=== PATIENT | male | born 1940 | race Caucasian/White ===

== ENCOUNTER 2017-06-06 18:52 | Inpatient (IN) | payer OTHER ==
[2017-06-06 19:18] LABS: ADD MAN DIFF? NO
[2017-06-06 19:20] LABS: BASO % 0 % (0-3); EOS % 0 % (0-3); HEMOGLOBIN 13.9 g/dL (13.0-17.5); LYMPH # 1.1 x10^3/uL (1.0-4.8); LYMPH % 16 % (24-48); MEAN CORPUSCULAR HEMOGLOBIN 37 pg (25-35); MEAN CORPUSCULAR HGB CONC 34 g/dL (31-37); MEAN CORPUSCULAR VOLUME 109 fL (79-100); MONO % 9 % (0-9); NEUT % 75 % (31-73); PLATELET COUNT 175 x10^3/uL (140-400); RED BLOOD COUNT 3.74 x10^6/uL (4.30-5.70)
[2017-06-06 19:29] LABS: INR 1.1 (0.8-1.1); PARTIAL THROMBOPLASTIN TIME 27 SEC (24-38); PROTHROMBIN TIME PATIENT 13.4 SEC (11.7-14.0)
[2017-06-06 19:30] LABS: BLOOD UREA NITROGEN 25 mg/dL (8-26); BUN/CREATININE RATIO 13 (6-20); CALCIUM 9.5 mg/dL (8.5-10.1); CARBON DIOXIDE 27 mmol/L (21-32); CREATININE 1.9 mg/dL (0.7-1.3); GFR 34.7; GLUCOSE 193 mg/dL (70-99)
[2017-06-06] MEDS: IV NORMAL SALINE 1000ML BAG 1,000 ML IV (19:33)
[2017-06-06] MEDS: DIPHTH,PERTUSS(ACELL),TET TOX 0.5 ML DISP.SYRIN. VAX IM (19:36)
[2017-06-06 19:37] LABS: ALBUMIN 3.8 g/dL (3.4-5.0); ALK PHOS 29 U/L (46-116); ALT (SGPT) 56 U/L (16-63); AST (SGOT) 120 U/L (15-37); CREATINE KINASE 81 U/L (39-308); MAGNESIUM 1.6 mg/dL (1.8-2.4); TOTAL BILIRUBIN 0.9 mg/dL (0.2-1.0); TOTAL PROTEIN 7.5 g/dL (6.4-8.2)
[2017-06-06 19:42] LABS: NT-PRO BNP 217 pg/mL (0-449); TROPONINI 0.102 ng/mL (0.000-0.055)
[2017-06-06 19:43] LABS: ANION GAP 14 (6-14); CHLORIDE 101 mmol/L (98-107); SODIUM 142 mmol/L (136-145)
[2017-06-06 20:03] LABS: ETHANOL < 10 mg/dL (0-10)
[2017-06-06] MEDS: MAGNESIUM OXIDE 400 MG TABLET PO (20:22)
[2017-06-06] MEDS: ASPIRIN ENTERIC COATED 325 MG TABLET.DR. PO (20:22)
[2017-06-06] MEDS ORDERED: ONDANSETRON PF 4 MG/2 ML VIAL. IV (20:30)
[2017-06-06] MEDS ORDERED: fentaNYL PF VIAL 100 MCG/2 ML VIAL IV (20:30)
[2017-06-06] MEDS ORDERED: HEPARIN for IV BOLUS 10,000 UNIT/10 ML VIAL. IV ×2 (20:30)
[2017-06-06] MEDS: HEPARIN for IV BOLUS 10,000 UNIT/10 ML VIAL. IV (20:39)
[2017-06-06] MEDS: HEPARIN 25,000UTS/500ML PREMIX 500 ML IV (20:48)
[2017-06-06] MEDS: LORazepam 1 MG TABLET PO (21:00)
[2017-06-06] MEDS: ACETAMINOPHEN 325 MG TABLET. PO (23:30)
[2017-06-07 02:02] LABS: BASO % 1 % (0-3); EOS % 0 % (0-3); HEMATOCRIT 37.1 % (39.0-53.0); HEMOGLOBIN 12.6 g/dL (13.0-17.5); LYMPH # 0.6 x10^3/uL (1.0-4.8); LYMPH % 12 % (24-48); MEAN CORPUSCULAR HEMOGLOBIN 37 pg (25-35); MEAN CORPUSCULAR HGB CONC 34 g/dL (31-37); MEAN CORPUSCULAR VOLUME 108 fL (79-100); MONO % 12 % (0-9); NEUT % 76 % (31-73); PLATELET COUNT 143 x10^3/uL (140-400); RED BLOOD COUNT 3.42 x10^6/uL (4.30-5.70); RED CELL DISTRIBUTION WIDTH 13.9 % (11.5-14.5); WHITE BLOOD COUNT 5.4 x10^3/uL (4.0-11.0)
[2017-06-07 02:05] LABS: ADD MAN DIFF? NO
[2017-06-07 02:19] LABS: ANION GAP 9 (6-14); BLOOD UREA NITROGEN 26 mg/dL (8-26); CALCIUM 8.5 mg/dL (8.5-10.1); CARBON DIOXIDE 30 mmol/L (21-32); CHLORIDE 102 mmol/L (98-107); CREATININE 1.6 mg/dL (0.7-1.3); GFR 42.3; GLUCOSE 144 mg/dL (70-99); POTASSIUM 4.5 mmol/L (3.5-5.1); SODIUM 141 mmol/L (136-145)
[2017-06-07] MEDS: LORazepam 1 MG TABLET PO (03:00)
[2017-06-07] MEDS: ACETAMINOPHEN 325 MG TABLET. PO ×2 (06:12→20:06)
[2017-06-07] MEDS ORDERED: ONDANSETRON ODT 4 MG TAB.RAPDIS. PO (08:30)
[2017-06-07] MEDS ORDERED: ACETAMINOPHEN 325 MG TABLET. PO (08:30)
[2017-06-07] MEDS ORDERED: chlordiazePOXIDE HCL 25 MG CAPSULE PO (08:30)
[2017-06-07] MEDS ORDERED: ONDANSETRON PF 4 MG/2 ML VIAL. IV (08:30)
[2017-06-07 08:36] LABS: TROPONINI 0.644 ng/mL (0.000-0.055)
[2017-06-07 08:54] LABS: CREATINE KINASE 93 U/L (39-308)
[2017-06-07 08:54] LABS: MAGNESIUM 1.8 mg/dL (1.8-2.4)
[2017-06-07] MEDS: MULTIVIT INFUSN,ADULT 4,VIT K 10 ML, THIAMINE 100 MG, FOLIC ACID 1 MG in IV DEXTROSE 5 ... IV (09:21)
[2017-06-07] MEDS: LOSARTAN POTASSIUM 50 MG TABLET. PO (09:21)
[2017-06-07] MEDS: ANTI-COAG MONITOR BY PHARMACY. MC (14:29)
[2017-06-07] MEDS: HEPARIN 25,000UTS/500ML PREMIX 500 ML IV (19:46)
[2017-06-07] MEDS: APIXABAN 5 MG TABLET. PO (20:05)
[2017-06-07] MEDS: traZODone 50 MG TABLET. PO (20:05)
[2017-06-08] MEDS: LORazepam 1 MG TABLET PO (00:24)
[2017-06-08] MEDS: LOSARTAN POTASSIUM 50 MG TABLET. PO (08:18)
[2017-06-08] MEDS: APIXABAN 5 MG TABLET. PO (08:18)
[2017-06-08] MEDS: FOLIC ACID 1 MG TABLET. PO (08:19)
[2017-06-08] MEDS: MULTIVITAMIN with MINERAL TABLET. PO (08:19)
[2017-06-08] MEDS: THIAMINE 100 MG TABLET. PO (08:19)
[2017-06-08 13:46] LABS: HEMATOCRIT 30.1 % (39.0-53.0); HEMOGLOBIN 10.4 g/dL (13.0-17.5); MEAN CORPUSCULAR HGB CONC 35 g/dL (31-37)
[2017-06-08 13:59] LABS: INR 1.6 (0.8-1.1); PROTHROMBIN TIME PATIENT 17.8 SEC (11.7-14.0)
[2017-06-08] MEDS: traZODone 50 MG TABLET. PO (20:33)
[2017-06-09 03:39] LABS: ADD MAN DIFF? NO
[2017-06-09 04:52] LABS: BASO % 0 % (0-3); EOS % 1 % (0-3); HEMATOCRIT 28.6 % (39.0-53.0); HEMOGLOBIN 9.8 g/dL (13.0-17.5); LYMPH # 0.9 x10^3/uL (1.0-4.8); LYMPH % 16 % (24-48); MEAN CORPUSCULAR HEMOGLOBIN 38 pg (25-35); MEAN CORPUSCULAR HGB CONC 34 g/dL (31-37); MEAN CORPUSCULAR VOLUME 109 fL (79-100); MONO % 12 % (0-9); NEUT % 71 % (31-73); PLATELET COUNT 139 x10^3/uL (140-400); RED BLOOD COUNT 2.62 x10^6/uL (4.30-5.70); RED CELL DISTRIBUTION WIDTH 13.7 % (11.5-14.5); WHITE BLOOD COUNT 5.9 x10^3/uL (4.0-11.0)
[2017-06-09 05:08] LABS: ANION GAP 7 (6-14); BLOOD UREA NITROGEN 33 mg/dL (8-26); CALCIUM 8.8 mg/dL (8.5-10.1); CARBON DIOXIDE 29 mmol/L (21-32); CHLORIDE 105 mmol/L (98-107); CREATININE 1.5 mg/dL (0.7-1.3); GFR 45.6; GLUCOSE 106 mg/dL (70-99); SODIUM 141 mmol/L (136-145)
[2017-06-09 05:12] LABS: POTASSIUM 5.2 mmol/L (3.5-5.1)
[2017-06-09] MEDS: MULTIVITAMIN with MINERAL TABLET. PO (08:15)
[2017-06-09] MEDS: FOLIC ACID 1 MG TABLET. PO (08:15)
[2017-06-09] MEDS: THIAMINE 100 MG TABLET. PO (08:15)
[2017-06-09] MEDS: LOSARTAN POTASSIUM 50 MG TABLET. PO (08:16)
[2017-06-09] MEDS: APIXABAN 5 MG TABLET. PO (08:16)
[2017-06-09 10:16] LABS: ADD MAN DIFF? NO
[2017-06-09 10:27] LABS: BASO % 0 % (0-3); EOS % 1 % (0-3); HEMATOCRIT 28.3 % (39.0-53.0); HEMOGLOBIN 9.6 g/dL (13.0-17.5); LYMPH # 0.6 x10^3/uL (1.0-4.8); LYMPH % 12 % (24-48); MEAN CORPUSCULAR HEMOGLOBIN 37 pg (25-35); MEAN CORPUSCULAR HGB CONC 34 g/dL (31-37); MEAN CORPUSCULAR VOLUME 109 fL (79-100); MONO % 9 % (0-9); NEUT % 78 % (31-73); PLATELET COUNT 143 x10^3/uL (140-400); WHITE BLOOD COUNT 4.9 x10^3/uL (4.0-11.0)
[2017-06-09 15:10] LABS: ADD MAN DIFF? NO
[2017-06-09 15:13] LABS: BASO % 0 % (0-3); EOS % 1 % (0-3); HEMOGLOBIN 9.4 g/dL (13.0-17.5); LYMPH # 0.7 x10^3/uL (1.0-4.8); LYMPH % 13 % (24-48); MEAN CORPUSCULAR HEMOGLOBIN 38 pg (25-35); MEAN CORPUSCULAR HGB CONC 35 g/dL (31-37); MEAN CORPUSCULAR VOLUME 108 fL (79-100); MONO % 12 % (0-9); NEUT % 74 % (31-73); PLATELET COUNT 156 x10^3/uL (140-400); WHITE BLOOD COUNT 5.3 x10^3/uL (4.0-11.0)
== END 2017-06-09 17:17 | disposition home or self-care (01) | DRG 280 ==
LOC: ER 18:52 → 2 NORTH 20:11
DX: I21.4 Non-ST elevation (NSTEMI) myocardial infarction (principal); I26.99 Other pulmonary embolism without acute cor pulmonale; S02.31XA Fracture of orbital floor, right side, initial encounter for closed fracture; I27.29 Other secondary pulmonary hypertension; E83.42 Hypomagnesemia; I07.1 Rheumatic tricuspid insufficiency; I27.82 Chronic pulmonary embolism; I10 Essential (primary) hypertension; R79.1 Abnormal coagulation profile; D53.9 Nutritional anemia, unspecified; R00.0 Tachycardia, unspecified; R42 Dizziness and giddiness; M54.9 Dorsalgia, unspecified; G89.29 Other chronic pain; M54.40 Lumbago with sciatica, unspecified side; M19.90 Unspecified osteoarthritis, unspecified site; W19.XXXA Unspecified fall, initial encounter; E11.9 Type 2 diabetes mellitus without complications; R79.89 Other specified abnormal findings of blood chemistry; R04.0 Epistaxis; S70.11XA Contusion of right thigh, initial encounter; Z88.6 Allergy status to analgesic agent; Z88.4 Allergy status to anesthetic agent; Z88.0 Allergy status to penicillin; Y93.89 Activity, other specified; Y99.8 Other external cause status; Z82.49 Family history of ischemic heart disease and other diseases of the circulatory system; Z83.6 Family history of other diseases of the respiratory system; Z98.52 Vasectomy status; Y92.009 Unspecified place in unspecified non-institutional (private) residence as the place of occurrence of the external cause; Z85.828 Personal history of other malignant neoplasm of skin; Z88.2 Allergy status to sulfonamides; Z79.82 Long term (current) use of aspirin
CPT/HCPCS: 36415; 70450; 70486; 71010; 78582; 80048; 80053; 82550; 83735; 83880; 84443; 84484; 85014; 85018; 85025; 85220; 85379; 85520; 85610; 85730; 90715; 93005; 93306; 93880; 93970; 93971; 96361; 96374; 96375; 97162-GP; 99285; 99285-25; A9540; A9558; G0480; J1644; J2060; J7030

== ENCOUNTER 2017-06-10 09:12 | Inpatient (IN) | payer OTHER ==
[2017-06-10] VITALS (11 sets, daily range): BP systolic 115–135; BP diastolic 55–64
[~2017-06-10] VITALS: Ht 182.9 cm; Wt 88.0 kg
[~2017-06-10 09:12] MED LIST: APIX5TAB PO; LOSA100T6; TRAZ50TA15
[2017-06-10] MEDS ORDERED: IV NORMAL SALINE 1000ML BAG 1,000 ML IV SCH (09:14)
[2017-06-10] MEDS ORDERED: ASPIRIN CHEWABLE 81 MG TABLET. PO ONE (09:15)
[2017-06-10] MEDS ORDERED: 0.9 % SODIUM CHLORIDE 10 ML DISP.SYRIN. IV PRN (09:15)
[2017-06-10 09:45] LABS: BASO % 0 % (0-3); EOS % 0 % (0-3); HEMATOCRIT 30.5 % (39.0-53.0); HEMOGLOBIN 10.4 g/dL (13.0-17.5); LYMPH # 0.6 x10^3/uL (1.0-4.8); LYMPH % 9 % (24-48); MEAN CORPUSCULAR HEMOGLOBIN 37 pg (25-35); MEAN CORPUSCULAR HGB CONC 34 g/dL (31-37); MEAN CORPUSCULAR VOLUME 109 fL (79-100); MONO % 10 % (0-9); NEUT % 81 % (31-73); PLATELET COUNT 202 x10^3/uL (140-400); RED BLOOD COUNT 2.79 x10^6/uL (4.30-5.70); RED CELL DISTRIBUTION WIDTH 13.8 % (11.5-14.5); WHITE BLOOD COUNT 6.6 x10^3/uL (4.0-11.0)
[2017-06-10] MEDS ORDERED: fentaNYL PF VIAL 100 MCG/2 ML VIAL IV ONE (09:45)
--- NOTE | 2017-06-10 09:46 | PHYS DOC ---
Past Medical History Past Medical History: Diabetes-Type II, DVT, Hypertension, Vascular Disease Additional Past Medical Histor: pulmonary embolism Past Surgical History: Other Additional Past Surgical Histo: VASECTOMY Alcohol Use: Heavy Drug Use: None Adult General Chief Complaint Chief Complaint: LOWER EXT PAIN [facility] HPI Patient is a pleasant 76-year-old male with a history of hypertension hyperlipidemia and diabetes type 2 who presents with epistaxis and continued development of DVT while on Elloquis. Patient was seen and admitted to the hospital within the last week and diagnosed with a PE causing the syncope. Patient had appropriate treatment with heparin and was bridged with Elloquis. Over the course of his evaluation patient developed increasing right thigh pain thought to be a hematoma as well as epistaxis secondary to the anticoagulations and therapy. Patient had an ultrasound done that demonstrated at the development of a DVT in his right thigh. Despite being on the right treatment patient was still hypercoagulable. The physician/principal solutions architect taking care of the patient decreased his elloquis dose by one half and discharge patient home yesterday. Over the evening and this morning patient began to have increasing epistaxis despite being on half dose Elloquis I was asked to come to the emergency department for evaluation admission to the hospital and conversion for treatment using an IVC filter. Patient is not having any symptoms other than feeling tired. He does have a history of insomnia where he uses trazodone. He denies any continued bleeding at this time but says he's had some bruising in his upper extremities with leakage of blood through the skin and intermittent epistaxis which is resolved. He denies any headache his only other complaint is mild facial pain and neck pain that he sustained from a prior fall and injury during the syncopal events. His primary care doctor is Dr. Reji Khanna Plan is for admission to the hospital for evaluation by interventional radiology for the placement of an IVC filter. I will also consult hospitalist and pulmonary services for continued treatment of his symptoms. Review of Systems Review of Systems Constitutional: Denies fever or chills [] Eyes: Denies change in visual acuity, redness, or eye pain [] HENT: Denies nasal congestion or sore throat patient did have intermittent epistaxis now resolved[] Respiratory: Denies cough or shortness of breath [] Cardiovascular: No additional information not addressed in HPI [] GI: Denies abdominal pain, nausea, vomiting, diarrhea but patient did state he had some dark tarry stools as pressure with the last bowel movement. ] : Denies dysuria or hematuria [] Musculoskeletal: Patient complains of mild facial pain and left-sided neck pain Integument: Denies rash or skin lesions patient has ecchymoses on his face upper extremities from falls. No increased swelling or pain, pain in the right thigh has improved.[] Neurologic: Denies headache, focal weakness or sensory changes [] Endocrine: Denies polyuria or polydipsia [] All other systems were reviewed and found to be within normal limits, except as documented in this note. Current Medications Current Medications Current Medications Medications (Trade) Dose Ordered Sig/Bisi Start Time Stop Time Status Last Admin Dose Admin Aspirin (Children'S Aspirin) 324 mg 1X ONCE 06/10/17 09:15 06/10/17 09:42 DC Fentanyl Citrate (Fentanyl 2ml Vial) 50 mcg 1X ONCE 06/10/17 09:45 06/10/17 09:46 DC 06/10/17 09:53 50 MCG Sodium Chloride 1,000 ml @ 80 mls/hr [id number] 06/10/17 09:48 06/11/17 09:47 Sodium Chloride (Normal Saline Flush) 10 ml QSHIFT PRN 06/10/17 09:15 06/10/17 09:49 10 ML Allergies Allergies Allergies Coded Allergies Type Severity Reaction Last Updated Verified Sulfa (Sulfonamide Antibiotics) Allergy Severe 06/06/17 Yes Penicillins Allergy Intermediate Rash 06/06/17 Yes codeine Adverse Reaction Intermediate Nausea and Vomiting 06/06/17 Yes lidocaine Adverse Reaction Intermediate Nausea and Vomiting 06/06/17 Yes Physical Exam Physical Exam Vital signs recorded on the chart at this time within normal limits Constitutional: Well developed, well nourished, no acute distress, non-toxic appearance. [] HENT: Normocephalic, bilateral external ears normal, oropharynx moist, no oral exudates, nose normal. Patient has some tenderness to palpation over the over normal inferior portion of the right with significant ecchymosis noted there was soft tissue swelling. Patient has dried blood in his nose no active epistaxis no septal hematoma [] Eyes: PERRLA, EOMI, conjunctiva normal, no discharge. [] Neck: Normal range of motion, supple, no stridor. Patient has some tenderness to palpation over the lateral left aspect of the neck that radiates up into the insertion point of the trapezius muscle back the skull no obvious signs of trauma no step-offs[] Cardiovascular:Heart rate regular rhythm, no murmur gallops or rubs [] Lungs & Thorax: Bilateral breath sounds clear to auscultation [] Abdomen: Bowel sounds normal, soft, no tenderness, no masses, no pulsatile masses. Patient with good rectal tone no external hemorrhoids brown stool no obvious melena [] Skin: Warm, dry, no erythema, no rash. [] Back: No tenderness, no CVA tenderness. [] Extremities: He has some mild tenderness to palpation on the inside of the right thigh no obvious soft tissue swelling or deformity no cyanosis, no clubbing, ROM intact, no edema. Patient has multiple areas of ecchymoses and soft tissue swelling of the upper extremities from injuries and trauma while on blood thinning medications. [] Neurologic: Alert and oriented X 3, normal motor function, normal sensory function, no focal deficits noted. [] Psychologic: Affect normal, judgement normal, mood normal. [] Current Patient Data Vital Signs Vital Signs Date Time Temp Pulse Resp B/P (MAP) Pulse Ox O2 Delivery O2 Flow Rate FiO2 06/10/17 09:28 97.6 82 20 131/59 (83) 100 Room Air 97.6 Lab Values Laboratory Tests Test 06/10/17 09:38 White Blood Count 6.6 x10^3/uL (4.0-11.0) Red Blood Count 2.79 x10^6/uL (4.30-5.70) L Hemoglobin 10.4 g/dL (13.0-17.5) L Hematocrit 30.5 % (39.0-53.0) L Mean Corpuscular Volume 109 fL (79-100) H Mean Corpuscular Hemoglobin 37 pg (25-35) H Mean Corpuscular Hemoglobin Concent 34 g/dL (31-37) Red Cell Distribution Width 13.8 % (11.5-14.5) Platelet Count 202 x10^3/uL (140-400) Neutrophils (%) (Auto) 81 % (31-73) H Lymphocytes (%) (Auto) 9 % (24-48) L Monocytes (%) (Auto) 10 % (0-9) H Eosinophils (%) (Auto) 0 % (0-3) Basophils (%) (Auto) 0 % (0-3) Neutrophils # (Auto) 5.3 x10^3uL (1.8-7.7) Lymphocytes # (Auto) 0.6 x10^3/uL (1.0-4.8) L Monocytes # (Auto) 0.6 x10^3/uL (0.0-1.1) Eosinophils # (Auto) 0.0 x10^3/uL (0.0-0.7) Basophils # (Auto) 0.0 x10^3/uL (0.0-0.2) Prothrombin Time 14.9 SEC (11.7-14.0) H Prothrombin Time INR 1.2 (0.8-1.1) H Sodium Level 138 mmol/L (136-145) Potassium Level 4.0 mmol/L (3.5-5.1) Chloride Level 99 mmol/L (98-107) Carbon Dioxide Level 26 mmol/L (21-32) Anion Gap 13 (6-14) Blood Urea Nitrogen 38 mg/dL (8-26) H Creatinine 1.7 mg/dL (0.7-1.3) H Estimated GFR (Cockcroft-Gault) 39.5 Glucose Level 182 mg/dL (70-99) H Calcium Level 9.0 mg/dL (8.5-10.1) Magnesium Level 1.6 mg/dL (1.8-2.4) L Total Bilirubin 1.1 mg/dL (0.2-1.0) H Direct Bilirubin 0.3 mg/dL (0.0-0.2) H Aspartate Amino Transferase (AST) 38 U/L (15-37) H Alanine Aminotransferase (ALT) 34 U/L (16-63) Alkaline Phosphatase 24 U/L (46-116) L Creatine Kinase 416 U/L (39-308) H Creatine Kinase MB (Mass) 3.1 ng/mL (0.0-3.6) Creatine Kinase MB Relative Index 0.7 % (0-4) Troponin I Quantitative 0.036 ng/mL (0.000-0.055) GB-Rdo-[id number]-Type Natriuretic Peptide 974 pg/mL (0-449) H Total Protein 7.3 g/dL (6.4-8.2) Albumin 3.7 g/dL (3.4-5.0) Laboratory Tests 06/10/17 09:38 Laboratory Tests 06/10/17 09:38 EKG EKG EKG timed 9:27 AM read by me 06/10/2017 minutes heart rate of 103 there is a P wave there were QRS this is sinus tachycardia NC interval is 168 which is normal , QS with a 66 which is normal, QTc is 432 which is also normal. There is a left axis deviation and an old Q-wave noted in the inferior leads of V3 and aVF there is sinus tachycardia which has no signs of ST segment or T-wave changes consistent with acute cardiac ischemia[] Radiology/Procedures Radiology/Procedures [] [address] [place] [address] IMAGING REPORT Signed PATIENT: ALVIN WYATT ACCOUNT: [id number] : 1940 LOCATION: ER AGE: 76 SEX: M EXAM STATUS: REG ER ORD. PHYSICIAN: АЛЕКСАНДР NUNEZ DO REASON: FALL, PAIN PROCEDURE: CT HEAD AND MAXILLOFACIAL WO PQRS Compliance Statement: One or more of the following individualized dose reduction techniques were utilized for this examination: 1. Automated exposure control 2. Adjustment of the mA and/or kV according to patient size 3. Use of iterative reconstruction technique CT head and maxillofacial without contrast 06/06/2017 7:12 PM INDICATION: Fall, facial abrasions COMPARISON: None available TECHNIQUE: Multiple axial CT images of the head were obtained from skull base through the vertex without intravenous contrast. Axial CT images of the maxillofacial structures were obtained without intravenous contrast. Coronal and sagittal reformats are provided. FINDINGS: Scalp and calvaria are normal.Ventricles, sulci and basal cisterns are mildly prominent compatible with mild generalized cerebral volume loss. There is low attenuation the periventricular white matter compatible chronic small vessel ischemic changes. There is no hydrocephalus. Kim-white matter differentiation is normal. There is no acute intracranial hemorrhage. There is no mass, mass effect or midline shift. Posterior fossa is normal in appearance. There is a fracture involving the inferior right orbital wall. No significant herniation of the inferior rectus muscle or fat. There is opacification of the right maxillary sinus with high attenuation fluid and air-fluid level. There is subcutaneous emphysema along the right infraorbital soft tissues. Orbital emphysema is present. The globe appears spherical contour. The lens appears intact. The zygoma is intact. Medial orbital wall is intact. Pterygoid plates are intact. Temporomandibular joints are well aligned. No mandibular fracture is identified. The maxilla is intact. IMPRESSION: No acute intracranial hemorrhage. Orbital floor fracture without evidence for herniation of fat or the inferior rectus muscle. Moderate opacification of the right maxillary sinus with air-fluid level suggestive of blood products. There is suggestion of orbital emphysema. Globe appears intact as CT. Correlation with intraocular pressures may be of benefit. No radiopaque foreign density is identified. Electronically signed by: Gamaliel Hopper MD (06/06/2017 8:10 PM) [facility] DICTATED and SIGNED BY: GAMALIEL HOPPER MD DATE: 06/06/172002 CC: REJI KHANNA MD; АЛЕКСАНДР NUNEZ DO ~ [facility] [address] [place] [address] IMAGING REPORT Signed PATIENT: ALVIN WYATT ACCOUNT: [id number] : 1940 LOCATION: [address] [place] [address] AGE: 76 SEX: M EXAM STATUS: ADM IN ORD. PHYSICIAN: COLT NOBLE MD REASON: fall with neck pain PROCEDURE: CT CERVICAL SPINE WO CONTRAST PQRS Compliance Statement: One or more of the following individualized dose reduction techniques were utilized for this examination: 1. Automated exposure control 2. Adjustment of the mA and/or kV according to patient size 3. Use of iterative reconstruction technique CT cervical spine without contrast Clinical Indication: fall with neck pain Comparison: None. Technique: Noncontrast helical CT of the cervical spine was performed. Axial, sagittal, and coronal reconstructions were obtained. Findings: There is no evidence of acute fracture or acute malalignment. The facet joints are intact, moderately hypertrophic. There is mild grade 1 anterolisthesis of C3 on C4 and C4 on C5. There is disc space narrowing and degenerative endplate spurring that is most advanced at C5/C6 and C6/C7. There is straightening of normal cervical lordosis that may be positional or due to muscle spasm. There is uncinate process hypertrophy at C6/C7. Tiny hypodense left thyroid nodule. The visualized lung apices are clear. IMPRESSION: No acute fracture or malalignment. DICTATED and SIGNED BY: MARYANA YEBOAH MD DATE: 06/10/17 4203 CC: COLT NOBLE MD; SHANDA DE LA TORRE III DO; REJI KHANNA MD ~ Course & Med Decision Making Course & Med Decision Making Pertinent Labs and Imaging studies reviewed. (See chart for details) []Patient presented with increased bleeding from the nose, skin and development of a subsequent DVT in the right upper extremity despite being on antibiotic regulation therapy. Patient was asked to come back to the emergency part for admission to the hospital and eventual placement of an IVC filter by interventional radiology. We'll the course of the hospitalization of reviewed the patient's CT scans of his head and face which demonstrated a right orbital floor fracture without entrapment of the orbital contents. Patient is no evidence of anesthesia to the face on the right where his injuries occurred. He is complaining of neck pain and no definitive imaging was completed. At this point given his symptoms of continued neck pain I will order pain medications and CT of the neck without contrast to ensure that no subtle cervical fracture was missed. Main concern of this patient is to mitigate bleeding risk taking him off the anticoagulations and subsequently place an IVC filter to protect him from lower extremity DVT clot showering his lungs. Patient is still mildly tachycardic on physical exam likely from the PE which is presently being treated by the frank. We will continue to consult pulmonary services as well as IR to assist in treating this patient's apparent problem Patient did mention during the review of systems that he did have 1 dark melanotic stool being on a blood thinning medications the concern is possible GI bleed patient was tested for blood in his stool via rectal exam and typed and screened for possible transfusion if necessary. Patient is still on anti- correlation last dose at 11 PM last night for continued hold medication Horse Breaker note: Internal medicine service Dr. aSlvador De La Torre Horse Breaker called at of the service 9:43 am Consult called back at 9:43 AM Discussed the case I presented and they agreed with admission. Time of acceptance 9:43 AM "I have assessed this patient clinically and believe that their condition requires an admission to the hospital. After consulting the admitting physician about this case, they have asked that I admit this patient to their service as an inpatient based on the clinical presentation and my impression." Dragon Disclaimer Dragon Disclaimer This electronic medical record was generated, in whole or in part, using a voice recognition dictation system. Departure Departure Impression: Primary Impression: Sinus tachycardia Additional Impressions: Pulmonary embolism Epistaxis Sprain of cervical neck Orbital floor fracture Renal insufficiency Hypomagnesemia Anemia Disposition: 09 ADMITTED INPATIENT Admitting Physician: Shanda De La Torre Condition: GUARDED Referrals: REJI KHANNA MD (PCP) Problem Qualifiers COLT NOBLE MD Jun 10, 2017 09:46
[2017-06-10] MEDS: IV NORMAL SALINE 1000ML BAG 1,000 ML IV SCH ×2 (09:48→22:18)
[2017-06-10 09:53] LABS: CREATININE 1.7 mg/dL (0.7-1.3); GFR 39.5
[2017-06-10 09:58] LABS: ALBUMIN 3.7 g/dL (3.4-5.0); DIRECT BILIRUBIN 0.3 mg/dL (0.0-0.2); MAGNESIUM 1.6 mg/dL (1.8-2.4); TOTAL BILIRUBIN 1.1 mg/dL (0.2-1.0); TOTAL PROTEIN 7.3 g/dL (6.4-8.2)
[2017-06-10] MEDS ORDERED: ONDANSETRON PF 4 MG/2 ML VIAL. IV PRN (10:00)
[2017-06-10] MEDS ORDERED: fentaNYL PF VIAL 100 MCG/2 ML VIAL IV PRN (10:00)
[2017-06-10 10:03] LABS: INR 1.2 (0.8-1.1); PROTHROMBIN TIME PATIENT 14.9 SEC (11.7-14.0)
[2017-06-10 10:06] LABS: CKMB MASS 3.1 ng/mL (0.0-3.6)
[2017-06-10] MEDS: ACETAMINOPHEN 325 MG TABLET. PO PRN ×2 (11:11→20:26)
[2017-06-10] MEDS ORDERED: MAGNESIUM SULFATE 2GM 50 ML IV ONE (11:15)
--- NOTE | 2017-06-10 11:25 | RAD ---
PQRS Compliance Statement: One or more of the following individualized dose reduction techniques were utilized for this examination: 1. Automated exposure control 2. Adjustment of the mA and/or kV according to patient size 3. Use of iterative reconstruction technique CT cervical spine without contrast Clinical Indication: fall with neck pain Comparison: None. Technique: Noncontrast helical CT of the cervical spine was performed. Axial, sagittal, and coronal reconstructions were obtained. Findings: There is no evidence of acute fracture or acute malalignment. The facet joints are intact, moderately hypertrophic. There is mild grade 1 anterolisthesis of C3 on C4 and C4 on C5. There is disc space narrowing and degenerative endplate spurring that is most advanced at C5/C6 and C6/C7. There is straightening of normal cervical lordosis that may be positional or due to muscle spasm. There is uncinate process hypertrophy at C6/C7. Tiny hypodense left thyroid nodule. The visualized lung apices are clear. IMPRESSION: No acute fracture or malalignment.
--- NOTE | 2017-06-10 12:44 | PDOC ---
Provider Note Provider Note dictated recent PE/DVT Hypercoagulable severe bleeding with eliquis needs IVC filter [facility] IR consulted DEBRA GRAJEDA MD Jun 10, 2017 12:44
--- NOTE | 2017-06-10 12:45 | EKG ---
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
--- NOTE | 2017-06-10 13:01 | CONS ---
DATE OF CONSULTATION: 06/10/2017 ATTENDING PHYSICIAN: Dr. De La Torre. REASON FOR CONSULTATION: Deep venous thrombosis, pulmonary embolism, severe bleeding while on anticoagulation. HISTORY OF PRESENT ILLNESS: The patient is a 76-year-old male who was recently hospitalized after a syncopal episode with bruising on his face. He was found to have acute pulmonary embolism. The patient's initial venous Dopplers were negative, but however, while he was on anticoagulation with Eliquis and heparin, he started to have significant bleeding from his nose as well as developed a hematoma in his right thigh. At that time, anticoagulation was withheld for 24 hours and then ultrasound of the right thigh was performed and he was found to have a small hematoma in the right thigh. He also was found to have a new deep venous thrombosis in his right lower extremity. At that time, since the patient was suspected to have hypercoagulable state, he was discharged home on a low dose of Eliquis at 5 mg b.i.d. Factor V Leiden mutation was also obtained and was pending. His hemoglobin stayed stable at the time of discharge with minimal drop as expected from bleeding. The patient called me this morning that he started to have significant bleeding from his nose again. It took him hours to finally stop the bleeding. I told him to go to the Emergency Room as he would benefit from an IVC filter. Currently, the bleeding has stopped. His hemoglobin is 10.4. He denies any shortness of breath or chest pains. The patient would definitely benefit from an IVC filter. PAST MEDICAL HISTORY: Significant for diabetes type 2, history of deep venous thrombosis, history of recent pulmonary embolism, history of recent syncopal episodes, hypertension and vascular disease. PAST SURGICAL HISTORY: Vasectomy. ALLERGIES: PENICILLIN, SULFA, CODEINE, LIDOCAINE. MEDICATIONS: All reviewed as listed in the MRAD. REVIEW OF SYSTEMS: Twelve-point system obtained. Pertinent positives discussed in my history of present illness, otherwise noncontributory. All systems that were negative were reviewed as well. SOCIAL HISTORY: Denies tobacco use. FAMILY HISTORY: Noncontributory to lungs except a PE in his dad in the 50s. PHYSICAL EXAMINATION: VITAL SIGNS: His blood pressure 131/59. He is in no obvious respiratory distress, saturations 98% on room air. NECK: Supple. LUNGS: Clear. CARDIOVASCULAR: Regular rate. ABDOMEN: Soft, nontender. EXTREMITIES: With less tenderness in the right thigh. SKIN: There is some facial ecchymosis. LABORATORY DATA: Reviewed. White cell count 6.2, hemoglobin 10.4 and platelets are 202. BUN is 38 and creatinine 1.7. IMPRESSION: 1. Recent acute pulmonary embolism and deep venous thrombosis in a patient who presented as a syncopal episode and was found to have pulmonary embolism as the etiology of his syncope. While being treated for anticoagulation he developed significant epistaxis as well as a right thigh hematoma. Anticoagulation was withheld, but while anticoagulation was on hold another Doppler was performed of the lower extremity and developed new right deep venous thrombosis, (? compressive from hematoma) He was suspected to have a hypercoagulable state. His father had pulmonary embolism in his 50s. Factor V Leiden mutation was sent. He has no known cancers. The patient was subsequently discharged home and then readmitted with epistaxis while on low-dose Eliquis at 5 mg b.i.d. As a result, the patient is being hospitalized for immediate need for an inferior vena cava filter. 2. Suspected hypercoagulable state. 3. suspected chronic kidney disease 4. Stable hemoglobin. RECOMMENDATIONS: 1. The patient would benefit from IVC filter, I have spoken with IR . IVC filter will be placed today. 2. At this point, the patient is high risk for continuing with anticoagulation and Eliquis has been discontinued. 3. Once IVC filter is in place we will recommend a followup V/Q scan in 4-6 weeks. If there are no new pulmonary emboli, then he can safely stay off of anticoagulation; however, if he develops a new pulmonary embolism or if the clot does not resolve, then we may in future consider low-dose Coumadin. 4. He will need a screening colonoscopy to rule out any occult malignancy. 5. Folow results of factor V leiden mutation. 5. Discussed with the patient, the patient's daughter, and and all agree with the present plan. DEBRA GRAJEDA MD DR: TERESA/amy JOB#: [id number] / [id number] PARUL
--- NOTE | 2017-06-10 13:38 | PDOC2 ---
CONSULT Date of Consult Date of Consult DATE: 06/10/17 TIME: 13:34 Reason for Consult Reason for Consult: ^ed Creat Referring Physician Referring Physician: Dr bal Identification/Chief Complaint Chief Complaint Bleeding diathesis Problems: Source Source: Chart review, Patient History of Present Illness Reason for Visit: as dictated Past Medical History Cardiovascular: HTN Pulmonary: No pertinent hx CENTRAL NERVOUS SYSTEM: Other GI: No pertinent hx Heme/Onc: No pertinent hx Hepatobiliary: No pertinent hx Psych: No pertinent hx Musculoskeletal: low back pain, Osteoarthritis Rheumatologic: No pertinent hx Infectious disease: No pertinent hx Renal/: No pertinent hx Endocrine: Diabetes Past Surgical History Past Surgical History: Other Family History Family History: Hypertension, Other Social History ALCOHOL: heavy Drugs: None Lives: with Family Current Problem List Problem List Problems Medical Problems: (1) Anemia Status: Acute (2) Epistaxis Status: Acute (3) Hypomagnesemia Status: Acute (4) Orbital floor fracture Status: Acute (5) Pulmonary embolism Status: Acute (6) Renal insufficiency Status: Acute (7) Sinus tachycardia Status: Acute (8) Sprain of cervical neck Status: Acute Current Medications Current Medications Current Medications Aspirin (Children'S Aspirin) 324 mg 1X ONCE PO ; Start 06/10/17 at 09:15; Stop 06/10/17 at 09:42; Status DC Sodium Chloride 1,000 ml @ 1,000 mls/hr Q1H IV Last administered on 09:45; Start 06/10/17 at 09:14; Stop 06/10/17 at 10:13; Status DC Sodium Chloride (Normal Saline Flush) 10 ml QSHIFT PRN IV AFTER MEDS AND BLOOD DRAWS Last administered on 06/10/17 09:49; Start 06/10/17 at 09:15 Fentanyl Citrate (Fentanyl 2ml Vial) 50 mcg 1X ONCE IV Last administered on 09:53; Start 06/10/17 at 09:45; Stop 06/10/17 at 09:46; Status DC Ondansetron HCl (Zofran) 4 mg PRN Q8HRS PRN IV NAUSEA/VOMITING; Start at 10:00; Stop 06/11/17 at 09:59 Fentanyl Citrate (Fentanyl 2ml Vial) 50 mcg PRN Q1HR PRN IV PAIN; Start at 10:00; Stop 06/11/17 at 09:59 Sodium Chloride 1,000 ml @ 80 mls/hr [id number] IV ; Start 06/10/17 at 09:48; Stop 06/11/17 at 09:47 Acetaminophen (Tylenol) 650 mg PRN Q4HRS PRN PO FEVER Last administered on 11:11; Start 06/10/17 at 10:00; Stop 06/11/17 at 09:59 Magnesium Sulfate/ Dextrose 50 ml @ 25 mls/hr 1X ONCE IV Last administered on 06/10/17 11:11; Start 06/10/17 at 11:15; Stop 06/10/17 at 13:14; Status DC Active Scripts Active Eliquis (Apixaban) 5 Mg Tablet 5 Mg PO BID 60 Days Reported Trazodone Hcl 50 Mg Tablet Losartan Potassium 100 Mg Tablet Allergies Allergies: Coded Allergies: Sulfa (Sulfonamide Antibiotics) (Verified Allergy, Severe, 06/06/17) Penicillins (Verified Allergy, Intermediate, Rash, 06/06/17) codeine (Verified Adverse Reaction, Intermediate, Nausea and Vomiting, ) lidocaine (Verified Adverse Reaction, Intermediate, Nausea and Vomiting, 06/06/17) ROS Review of System Epistaxis, Thigh pain otherwise -ve Physical Exam Physical Exam GEN: Awake, Oriented x 3, In no distress EYES: Vision Unchanged, Conjunctiva Normal EN: No EN Drainage, Mucous Membranes moist NECK: no JVD, no JVP, Supple, no Thyromegaly CVS: S1S2, soft Murmur, No Gallop, No Rub,tr Edema RESP: no Rales, n Rhonchi,no Acc. Muscle Use GI: BS + ve, NO Bruit, Non Tender, Non Distended : no CVA tenderness, no Suprapubic Tenderness Vital Signs Vital Signs Date Time Temp Pulse Resp B/P (MAP) Pulse Ox O2 Delivery O2 Flow Rate FiO2 06/10/17 10:23 88 15 123/65 (84) 98 Room Air 06/10/17 09:28 97.6 97.6 Assessment & Plan JINA - no baseline avail and pt is not aware of CKD from PCP. check Renal US and reval - w/up as Ordered DVTs with Bleeding issues on Anticoagulant: now for GFF Labs Labs Laboratory Tests Test 06/10/17 09:38 White Blood Count 6.6 x10^3/uL (4.0-11.0) Red Blood Count 2.79 x10^6/uL (4.30-5.70) Hemoglobin 10.4 g/dL (13.0-17.5) Hematocrit 30.5 % (39.0-53.0) Mean Corpuscular Volume 109 fL (79-100) Mean Corpuscular Hemoglobin 37 pg (25-35) Mean Corpuscular Hemoglobin Concent 34 g/dL (31-37) Red Cell Distribution Width 13.8 % (11.5-14.5) Platelet Count 202 x10^3/uL (140-400) Neutrophils (%) (Auto) 81 % (31-73) Lymphocytes (%) (Auto) 9 % (24-48) Monocytes (%) (Auto) 10 % (0-9) Eosinophils (%) (Auto) 0 % (0-3) Basophils (%) (Auto) 0 % (0-3) Neutrophils # (Auto) 5.3 x10^3uL (1.8-7.7) Lymphocytes # (Auto) 0.6 x10^3/uL (1.0-4.8) Monocytes # (Auto) 0.6 x10^3/uL (0.0-1.1) Eosinophils # (Auto) 0.0 x10^3/uL (0.0-0.7) Basophils # (Auto) 0.0 x10^3/uL (0.0-0.2) Prothrombin Time 14.9 SEC (11.7-14.0) Prothromb Time International Ratio 1.2 (0.8-1.1) Sodium Level 138 mmol/L (136-145) Potassium Level 4.0 mmol/L (3.5-5.1) Chloride Level 99 mmol/L (98-107) Carbon Dioxide Level 26 mmol/L (21-32) Anion Gap 13 (6-14) Blood Urea Nitrogen 38 mg/dL (8-26) Creatinine 1.7 mg/dL (0.7-1.3) Estimated GFR (Cockcroft-Gault) 39.5 Glucose Level 182 mg/dL (70-99) Calcium Level 9.0 mg/dL (8.5-10.1) Magnesium Level 1.6 mg/dL (1.8-2.4) Total Bilirubin 1.1 mg/dL (0.2-1.0) Direct Bilirubin 0.3 mg/dL (0.0-0.2) Aspartate Amino Transf (AST/SGOT) 38 U/L (15-37) Alanine Aminotransferase (ALT/SGPT) 34 U/L (16-63) Alkaline Phosphatase 24 U/L (46-116) Creatine Kinase 416 U/L (39-308) Creatine Kinase MB (Mass) 3.1 ng/mL (0.0-3.6) Creatine Kinase MB Relative Index 0.7 % (0-4) Troponin I Quantitative 0.036 ng/mL (0.000-0.055) JB-Nes-A-Type Natriuretic Peptide 974 pg/mL (0-449) Total Protein 7.3 g/dL (6.4-8.2) Albumin 3.7 g/dL (3.4-5.0) Laboratory Tests Test 06/10/17 09:38 White Blood Count 6.6 x10^3/uL (4.0-11.0) Red Blood Count 2.79 x10^6/uL (4.30-5.70) Hemoglobin 10.4 g/dL (13.0-17.5) Hematocrit 30.5 % (39.0-53.0) Mean Corpuscular Volume 109 fL (79-100) Mean Corpuscular Hemoglobin 37 pg (25-35) Mean Corpuscular Hemoglobin Concent 34 g/dL (31-37) Red Cell Distribution Width 13.8 % (11.5-14.5) Platelet Count 202 x10^3/uL (140-400) Neutrophils (%) (Auto) 81 % (31-73) Lymphocytes (%) (Auto) 9 % (24-48) Monocytes (%) (Auto) 10 % (0-9) Eosinophils (%) (Auto) 0 % (0-3) Basophils (%) (Auto) 0 % (0-3) Neutrophils # (Auto) 5.3 x10^3uL (1.8-7.7) Lymphocytes # (Auto) 0.6 x10^3/uL (1.0-4.8) Monocytes # (Auto) 0.6 x10^3/uL (0.0-1.1) Eosinophils # (Auto) 0.0 x10^3/uL (0.0-0.7) Basophils # (Auto) 0.0 x10^3/uL (0.0-0.2) Prothrombin Time 14.9 SEC (11.7-14.0) Prothromb Time International Ratio 1.2 (0.8-1.1) Sodium Level 138 mmol/L (136-145) Potassium Level 4.0 mmol/L (3.5-5.1) Chloride Level 99 mmol/L (98-107) Carbon Dioxide Level 26 mmol/L (21-32) Anion Gap 13 (6-14) Blood Urea Nitrogen 38 mg/dL (8-26) Creatinine 1.7 mg/dL (0.7-1.3) Estimated GFR (Cockcroft-Gault) 39.5 Glucose Level 182 mg/dL (70-99) Calcium Level 9.0 mg/dL (8.5-10.1) Magnesium Level 1.6 mg/dL (1.8-2.4) Total Bilirubin 1.1 mg/dL (0.2-1.0) Direct Bilirubin 0.3 mg/dL (0.0-0.2) Aspartate Amino Transf (AST/SGOT) 38 U/L (15-37) Alanine Aminotransferase (ALT/SGPT) 34 U/L (16-63) Alkaline Phosphatase 24 U/L (46-116) Creatine Kinase 416 U/L (39-308) Creatine Kinase MB (Mass) 3.1 ng/mL (0.0-3.6) Creatine Kinase MB Relative Index 0.7 % (0-4) Troponin I Quantitative 0.036 ng/mL (0.000-0.055) HF-Vpg-K-Type Natriuretic Peptide 974 pg/mL (0-449) Total Protein 7.3 g/dL (6.4-8.2) Albumin 3.7 g/dL (3.4-5.0) Images Images Left ventricle systolic function is normal. The Ejection Fraction is 50-55%. Grossly normal wall motion. Sepatl motion suggestive of conduction defect. The right ventricle is severely dilated. The right ventricular systolic function mildly reduced. Doppler and Color Flow revealed mild tricuspid regurgitation. There is mild pulmonary hypertension. The PA pressure was estimated at 31 mmHg (May be underestimated) BUSH,ACHAL K MD Jun 10, 2017 13:38
[2017-06-10] MEDS ORDERED: MAGNESIUM SULFATE 2GM 50 ML IV PRN (13:45)
--- NOTE | 2017-06-10 13:47 | HP ---
ADMIT DATE: 06/10/2017 CHIEF COMPLAINT: Epistaxis. HISTORY OF PRESENT ILLNESS: The patient is a pleasant 76-year-old male who has been on anticoagulation for a brief time. Basically, last week he developed a deep venous thrombosis. He then developed a pulmonary embolism. He has been placed on heparin and then Eliquis. He was sent home just last night, but developed epistaxis. I have discussed the case with the Emergency Room physician. The plan is to go ahead and admit him, stop the Eliquis and get an IVC filter. PAST MEDICAL HISTORY: The above-mentioned deep venous thrombosis and pulmonary embolism, diabetes, hypertension. He was told he also has Factor V Leiden mutation. ALLERGIES: SULFA, PENICILLIN, CODEINE AND LIDOCAINE. FAMILY HISTORY: Hypertension and deep venous thromboses. SOCIAL HISTORY: He does not drink, smoke or take drugs. MEDICATIONS: Reviewed. REVIEW OF SYSTEMS: GENERAL: No history of weight change, weakness or fevers. SKIN: No bruising, hair changes or rashes. EYES: No blurred, double or loss of vision. NOSE AND THROAT: No history of nosebleeds, hoarseness or sore throat. HEART: No history of palpitations, chest pain or shortness of breath on exertion. LUNGS: Denies cough, hemoptysis, wheezing or shortness of breath. GASTROINTESTINAL: Denies changes in appetite, nausea, vomiting, diarrhea or constipation. GENITOURINARY: No history of frequency, urgency, hesitancy or nocturia. NEUROLOGIC: Denies history of numbness, tingling, tremor or weakness. PSYCHIATRIC: No history of panic, anxiety or depression. ENDOCRINE: No history of heat or cold intolerance, polyuria or polydipsia. EXTREMITIES: Denies muscle weakness, joint pain, pain on walking or stiffness. HEMATOLOGIC: He complains of epistaxis. PHYSICAL EXAMINATION: VITAL SIGNS: Temperature afebrile, pulse 70, respirations 18, blood pressure 123/65. GENERAL: He is alert, cooperative. His daughter and are present; they are good support for him. HEART: Normal S1, S2. LUNGS: Clear. ABDOMEN: Soft. EXTREMITIES: No edema. SKIN: No rashes. ENDOCRINE: No thyromegaly. LYMPHATICS: No cervical nodes. HEMATOPOIETIC: He does have some bruising on his arm and his cheek. LABORATORY DATA: White count 6, hemoglobin 10, platelets 202. Electrolytes: Sodium 138, potassium 4, chloride 99, bicarbonate 26, BUN 38, creatinine 1.7, glucose 182. INR is 1.2. ASSESSMENT AND PLAN: Epistaxis in a middle-aged male who is not tolerating Eliquis. We are going to admit the patient. We are going to hold the Eliquis and consult Interventional Radiology to consider inferior vena cava filter. He does have significant azotemia with acute on chronic renal failure as well. I am going to will consult Dr. Anand. Continue home medicines, cardiac monitoring, PT, OT, consult Pulmonary. NIAL Ten COULTER DO DR: LUDWIG/amy JOB#: [id number] / [id number]
[2017-06-10] MEDS ORDERED: IOHEXOL 300 MG/ML 100ML VIAL. ONE (13:54)
[2017-06-10] MEDS ORDERED: LIDOCAINE WITH 8.4% SOD BICARB 3 ML DISP.SYRIN. IJ ONE ×2 (14:23→14:30)
[2017-06-10] MEDS ORDERED: IOHEXOL 300 MG/ML 100ML VIAL. IART ONE (14:30)
[2017-06-10] MEDS ORDERED: traZODone 50 MG TABLET. PO PRN (17:15)
[2017-06-10 19:31] LABS: BILIRUBIN,URINE NEGATIVE (NEG); GLUCOSE,URINE NEGATIVE (NEG); NITRITE,URINE NEGATIVE (NEG); PROTEIN,URINE NEGATIVE (NEG-TRACE)
[2017-06-10 19:38] LABS: BACTERIA,URINE 0 /HPF (0-FEW); RBC,URINE 0 /HPF (0-2); SQUAMOUS EPITHELIAL CELL,UR FEW /LPF; WBC,URINE OCC /HPF (0-4)
--- NOTE | 2017-06-11 01:01 | CONS ---
DATE OF CONSULTATION: 06/10/2017 PRIMARY PHYSICIAN: Dr. De La Torre/Dr. Davis. REASON FOR CONSULTATION: CRF. HISTORY OF PRESENT ILLNESS: The patient is a 76-year-old gentleman who was recently admitted here to this facility and discharged yesterday. He was found to have an episode of acute PE with elevated troponins. Also, he was found to have orbital floor fracture and syncope at that time. An echocardiogram was done, which showed significant right ventricular dilatation. He was placed on Eliquis and discharged. Hypercoagulability workup has been ordered by Dr. Davis and is pending at this time. He was noted to have a creatinine of 1.9 as of 06/06/2017 and 1.5 at time of discharge. He is up to 1.7 currently. He is felt to have underlying chronic kidney disease. He is not aware of the same diagnosis. Per discussion with Dr. Ng, he is also noted to be diabetic for quite some time. PAST MEDICAL HISTORY: Significant for diabetes, hypertension and PE as recently diagnosed. He has also had a vasectomy. SOCIAL HISTORY: , lives with his . Prior heavy alcohol use. No drug use. Denies tobacco use. FAMILY HISTORY: Positive for dad with PE in his 50s. No renal problems in the family per se. For rest of details, see electronic records. JOSE BUSH MD DR: KEVEN/amy JOB#: [id number] / [id number]
[2017-06-11 03:45] VITALS: BP 127/68
[2017-06-11 05:55] LABS: ALBUMIN/GLOBULIN RATIO 1.1 (1.0-1.7); CALCIUM 8.1 mg/dL (8.5-10.1); CREATININE 1.3 mg/dL (0.7-1.3); GFR 53.8; POTASSIUM 4.2 mmol/L (3.5-5.1); TOTAL BILIRUBIN 0.7 mg/dL (0.2-1.0); TOTAL PROTEIN 5.8 g/dL (6.4-8.2)
[2017-06-11 06:01] LABS: PHOSPHORUS 3.7 mg/dL (2.6-4.7)
[2017-06-11 07:00] VITALS: BP 141/76
--- NOTE | 2017-06-11 08:38 | RAD ---
Examination: Ultrasound kidneys History: History of acute renal insufficiency Comparison: None available Findings: The right kidney measures 11.5 x 4.3 x 4.4 cm. The left kidney measures 10.7 x 4.4 x 5.4 cm. The visualized aorta appears patent. The urinary bladder is mildly distended. There is mild bilateral cortical thinning identified in the kidneys. There is a 1.3 cm cystic structure identified in the right kidney. No evidence of hydronephrosis. The prostate appears moderately enlarged. Impression: 1. Thinning of the bilateral renal cortices. Correlate for medical renal disease. 2. 1.3 cm cyst identified in the right kidney. 3. Moderate prostatomegaly.
--- NOTE | 2017-06-11 09:19 | PDOC ---
PULMONARY PROGRESS NOTES Subjective had more epistaxis last night required nasal packing Vitals Vital Signs Date Time Temp Pulse Resp B/P (MAP) Pulse Ox O2 Delivery O2 Flow Rate FiO2 06/11/17 08:20 Room Air 06/11/17 07:00 97.6 95 18 141/76 (97) 98 97.6 General: Alert, No acute distress Lungs: Clear Cardiovascular: S1, S2 Abdomen: Soft Extremities: Other (trace edema) Labs Laboratory Tests Test 06/10/17 09:38 06/10/17 16:03 06/10/17 16:22 06/11/17 03:30 White Blood Count 6.6 x10^3/uL (4.0-11.0) Red Blood Count 2.79 x10^6/uL (4.30-5.70) Hemoglobin 10.4 g/dL (13.0-17.5) 8.2 g/dL (13.0-17.5) Hematocrit 30.5 % (39.0-53.0) Mean Corpuscular Volume 109 fL (79-100) Mean Corpuscular Hemoglobin 37 pg (25-35) Mean Corpuscular Hemoglobin Concent 34 g/dL (31-37) Red Cell Distribution Width 13.8 % (11.5-14.5) Platelet Count 202 x10^3/uL (140-400) Neutrophils (%) (Auto) 81 % (31-73) Lymphocytes (%) (Auto) 9 % (24-48) Monocytes (%) (Auto) 10 % (0-9) Eosinophils (%) (Auto) 0 % (0-3) Basophils (%) (Auto) 0 % (0-3) Neutrophils # (Auto) 5.3 x10^3uL (1.8-7.7) Lymphocytes # (Auto) 0.6 x10^3/uL (1.0-4.8) Monocytes # (Auto) 0.6 x10^3/uL (0.0-1.1) Eosinophils # (Auto) 0.0 x10^3/uL (0.0-0.7) Basophils # (Auto) 0.0 x10^3/uL (0.0-0.2) Prothrombin Time 14.9 SEC (11.7-14.0) Prothromb Time International Ratio 1.2 (0.8-1.1) Sodium Level 138 mmol/L (136-145) 141 mmol/L (136-145) Potassium Level 4.0 mmol/L (3.5-5.1) 4.2 mmol/L (3.5-5.1) Chloride Level 99 mmol/L (98-107) 105 mmol/L (98-107) Carbon Dioxide Level 26 mmol/L (21-32) 26 mmol/L (21-32) Anion Gap 13 (6-14) 10 (6-14) Blood Urea Nitrogen 38 mg/dL (8-26) 27 mg/dL (8-26) Creatinine 1.7 mg/dL (0.7-1.3) 1.3 mg/dL (0.7-1.3) Estimated GFR (Cockcroft-Gault) 39.5 53.8 Glucose Level 182 mg/dL (70-99) 102 mg/dL (70-99) Calcium Level 9.0 mg/dL (8.5-10.1) 8.1 mg/dL (8.5-10.1) Magnesium Level 1.6 mg/dL (1.8-2.4) 1.9 mg/dL (1.8-2.4) Total Bilirubin 1.1 mg/dL (0.2-1.0) 0.7 mg/dL (0.2-1.0) Direct Bilirubin 0.3 mg/dL (0.0-0.2) Aspartate Amino Transf (AST/SGOT) 38 U/L (15-37) 28 U/L (15-37) Alanine Aminotransferase (ALT/SGPT) 34 U/L (16-63) 29 U/L (16-63) Alkaline Phosphatase 24 U/L (46-116) 16 U/L (46-116) Creatine Kinase 416 U/L (39-308) Creatine Kinase MB (Mass) 3.1 ng/mL (0.0-3.6) Creatine Kinase MB Relative Index 0.7 % (0-4) Troponin I Quantitative 0.036 ng/mL (0.000-0.055) FZ-Ltp-W-Type Natriuretic Peptide 974 pg/mL (0-449) Total Protein 7.3 g/dL (6.4-8.2) 5.8 g/dL (6.4-8.2) Albumin 3.7 g/dL (3.4-5.0) 3.0 g/dL (3.4-5.0) Urine Collection Type Unknown Urine Color Yellow Urine Clarity Clear Urine pH 6.0 Urine Specific Barrow 1.015 Urine Protein Negative mg/dL (NEG-TRACE) Urine Glucose (UA) Negative mg/dL (NEG) Urine Ketones (Stick) Negative mg/dL (NEG) Urine Blood Negative (NEG) Urine Nitrite Negative (NEG) Urine Bilirubin Negative (NEG) Urine Urobilinogen Dipstick 1.0 mg/dL (0.2 mg/dL) Urine Leukocyte Esterase Negative (NEG) Urine RBC 0 /HPF (0-2) Urine WBC Occ /HPF (0-4) Urine Squamous Epithelial Cells Few /LPF Urine Bacteria 0 /HPF (0-FEW) Glucose (Fingerstick) 146 mg/dL (70-99) BUN/Creatinine Ratio 21 (6-20) Phosphorus Level 3.7 mg/dL (2.6-4.7) Albumin/Globulin Ratio 1.1 (1.0-1.7) Laboratory Tests Test 06/10/17 09:38 06/10/17 16:03 06/10/17 16:22 06/11/17 03:30 White Blood Count 6.6 x10^3/uL (4.0-11.0) Red Blood Count 2.79 x10^6/uL (4.30-5.70) Hemoglobin 10.4 g/dL (13.0-17.5) 8.2 g/dL (13.0-17.5) Hematocrit 30.5 % (39.0-53.0) Mean Corpuscular Volume 109 fL (79-100) Mean Corpuscular Hemoglobin 37 pg (25-35) Mean Corpuscular Hemoglobin Concent 34 g/dL (31-37) Red Cell Distribution Width 13.8 % (11.5-14.5) Platelet Count 202 x10^3/uL (140-400) Neutrophils (%) (Auto) 81 % (31-73) Lymphocytes (%) (Auto) 9 % (24-48) Monocytes (%) (Auto) 10 % (0-9) Eosinophils (%) (Auto) 0 % (0-3) Basophils (%) (Auto) 0 % (0-3) Neutrophils # (Auto) 5.3 x10^3uL (1.8-7.7) Lymphocytes # (Auto) 0.6 x10^3/uL (1.0-4.8) Monocytes # (Auto) 0.6 x10^3/uL (0.0-1.1) Eosinophils # (Auto) 0.0 x10^3/uL (0.0-0.7) Basophils # (Auto) 0.0 x10^3/uL (0.0-0.2) Prothrombin Time 14.9 SEC (11.7-14.0) Prothromb Time International Ratio 1.2 (0.8-1.1) Sodium Level 138 mmol/L (136-145) 141 mmol/L (136-145) Potassium Level 4.0 mmol/L (3.5-5.1) 4.2 mmol/L (3.5-5.1) Chloride Level 99 mmol/L (98-107) 105 mmol/L (98-107) Carbon Dioxide Level 26 mmol/L (21-32) 26 mmol/L (21-32) Anion Gap 13 (6-14) 10 (6-14) Blood Urea Nitrogen 38 mg/dL (8-26) 27 mg/dL (8-26) Creatinine 1.7 mg/dL (0.7-1.3) 1.3 mg/dL (0.7-1.3) Estimated GFR (Cockcroft-Gault) 39.5 53.8 Glucose Level 182 mg/dL (70-99) 102 mg/dL (70-99) Calcium Level 9.0 mg/dL (8.5-10.1) 8.1 mg/dL (8.5-10.1) Magnesium Level 1.6 mg/dL (1.8-2.4) 1.9 mg/dL (1.8-2.4) Total Bilirubin 1.1 mg/dL (0.2-1.0) 0.7 mg/dL (0.2-1.0) Direct Bilirubin 0.3 mg/dL (0.0-0.2) Aspartate Amino Transf (AST/SGOT) 38 U/L (15-37) 28 U/L (15-37) Alanine Aminotransferase (ALT/SGPT) 34 U/L (16-63) 29 U/L (16-63) Alkaline Phosphatase 24 U/L (46-116) 16 U/L (46-116) Creatine Kinase 416 U/L (39-308) Creatine Kinase MB (Mass) 3.1 ng/mL (0.0-3.6) Creatine Kinase MB Relative Index 0.7 % (0-4) Troponin I Quantitative 0.036 ng/mL (0.000-0.055) ST-Jzu-F-Type Natriuretic Peptide 974 pg/mL (0-449) Total Protein 7.3 g/dL (6.4-8.2) 5.8 g/dL (6.4-8.2) Albumin 3.7 g/dL (3.4-5.0) 3.0 g/dL (3.4-5.0) Urine Collection Type Unknown Urine Color Yellow Urine Clarity Clear Urine pH 6.0 Urine Specific Barrow 1.015 Urine Protein Negative mg/dL (NEG-TRACE) Urine Glucose (UA) Negative mg/dL (NEG) Urine Ketones (Stick) Negative mg/dL (NEG) Urine Blood Negative (NEG) Urine Nitrite Negative (NEG) Urine Bilirubin Negative (NEG) Urine Urobilinogen Dipstick 1.0 mg/dL (0.2 mg/dL) Urine Leukocyte Esterase Negative (NEG) Urine RBC 0 /HPF (0-2) Urine WBC Occ /HPF (0-4) Urine Squamous Epithelial Cells Few /LPF Urine Bacteria 0 /HPF (0-FEW) Glucose (Fingerstick) 146 mg/dL (70-99) BUN/Creatinine Ratio 21 (6-20) Phosphorus Level 3.7 mg/dL (2.6-4.7) Albumin/Globulin Ratio 1.1 (1.0-1.7) Medications Active Scripts Medications Dose Route/Sig Max Daily Dose Days Date Category Eliquis (Apixaban) 5 Mg Tablet 5 Mg PO BID 60 06/08/17 Rx Trazodone Hcl 50 Mg Tablet 06/07/17 Reported Losartan Potassium 100 Mg Tablet 06/07/17 Reported Impression . 1. Recent acute pulmonary embolism and deep venous thrombosis in a patient who presented as a syncopal episode and was found to have pulmonary embolism as the etiology of his syncope. While being treated for anticoagulation he developed significant epistaxis as well as a right thigh hematoma. Anticoagulation was withheld, but while anticoagulation was on hold another Doppler was performed of the lower extremity and developed new right deep venous thrombosis, (? compressive from hematoma) He was suspected to have a hypercoagulable state. His father had pulmonary embolism in his 50s. Factor V Leiden mutation was sent. He has no known cancers. The patient was subsequently discharged home and then readmitted with epistaxis while on low-dose Eliquis at 5 mg b.i.d. As a result, the patient is being hospitalized for immediate need for an inferior vena cava filter. 2. Suspected hypercoagulable state. 3. suspected chronic kidney disease 4. Stable hemoglobin. 5. Anemia secondary to epistaxis Plan . 1. s/p IVC filter, 2. At this point, the patient is high risk for continuing with anticoagulation and Eliquis has been discontinued. Risks outweighs benefits. He understands that if he has hypercoagulable state, then IVC filter does not provide full protection for recurrent PE. 3. followup V/Q scan in 4-6 weeks. If there are no new pulmonary emboli, then he can safely stay off of anticoagulation; however, if he develops a new pulmonary embolism or if the clot does not resolve, then we may in future consider low-dose Coumadin. 4. He will need a screening colonoscopy to rule out any occult malignancy. 5. Follow results of factor V leiden mutation. 5. Discussed with the patient,RN. He wants to go home. stable from my standpoint if ok by PCP. DEBRA GRAJEDA MD Jun 11, 2017 09:19
[2017-06-11 11:00] VITALS: BP 143/74
[2017-06-11 13:11] LABS: UR PROTEIN RD 4.3 mg/dL (Not Estab.)
--- NOTE | 2017-06-11 16:23 | PDOC3 ---
Discharge Summary Visit Information Date of Admission: Jun 10, 2017 Date of Discharge: Jun 11, 2017 Admitting Diagnosis: nose bleeding, from anticoag Final Diagnosis 1. PE, DVT, a 2. Suspected hypercoagulable state. acute bleeding with anticoag meds, 3. chronic kidney disease 4. blood loss anemia, but Stable hemoglobin from prior 5. Anemia secondary to epistaxis Problems Medical Problems: (1) Anemia Status: Acute (2) Epistaxis Status: Acute (3) Hypomagnesemia Status: Acute (4) Orbital floor fracture Status: Acute (5) Pulmonary embolism Status: Acute (6) Renal insufficiency Status: Acute (7) Sinus tachycardia Status: Acute (8) Sprain of cervical neck Status: Acute Brief Hospital Course Allergies Allergies Coded Allergies Type Severity Reaction Last Updated Verified Sulfa (Sulfonamide Antibiotics) Allergy Severe 06/06/17 Yes Penicillins Allergy Intermediate Rash 06/06/17 Yes codeine Adverse Reaction Intermediate Nausea and Vomiting 06/06/17 Yes procaine Adverse Reaction Mild Nausea and Vomiting 06/11/17 Yes Vital Signs Vital Signs Date Time Temp Pulse Resp B/P (MAP) Pulse Ox O2 Delivery O2 Flow Rate FiO2 06/11/17 11:00 97.6 96 18 143/74 (97) 98 Room Air 97.6 Lab Results Laboratory Tests Test 06/10/17 09:38 06/10/17 16:03 06/10/17 16:22 06/11/17 03:30 White Blood Count 6.6 x10^3/uL (4.0-11.0) Red Blood Count 2.79 x10^6/uL (4.30-5.70) Hemoglobin 10.4 g/dL (13.0-17.5) 8.2 g/dL (13.0-17.5) Hematocrit 30.5 % (39.0-53.0) Mean Corpuscular Volume 109 fL (79-100) Mean Corpuscular Hemoglobin 37 pg (25-35) Mean Corpuscular Hemoglobin Concent 34 g/dL (31-37) Red Cell Distribution Width 13.8 % (11.5-14.5) Platelet Count 202 x10^3/uL (140-400) Neutrophils (%) (Auto) 81 % (31-73) Lymphocytes (%) (Auto) 9 % (24-48) Monocytes (%) (Auto) 10 % (0-9) Eosinophils (%) (Auto) 0 % (0-3) Basophils (%) (Auto) 0 % (0-3) Neutrophils # (Auto) 5.3 x10^3uL (1.8-7.7) Lymphocytes # (Auto) 0.6 x10^3/uL (1.0-4.8) Monocytes # (Auto) 0.6 x10^3/uL (0.0-1.1) Eosinophils # (Auto) 0.0 x10^3/uL (0.0-0.7) Basophils # (Auto) 0.0 x10^3/uL (0.0-0.2) Prothrombin Time 14.9 SEC (11.7-14.0) Prothromb Time International Ratio 1.2 (0.8-1.1) Sodium Level 138 mmol/L (136-145) 141 mmol/L (136-145) Potassium Level 4.0 mmol/L (3.5-5.1) 4.2 mmol/L (3.5-5.1) Chloride Level 99 mmol/L (98-107) 105 mmol/L (98-107) Carbon Dioxide Level 26 mmol/L (21-32) 26 mmol/L (21-32) Anion Gap 13 (6-14) 10 (6-14) Blood Urea Nitrogen 38 mg/dL (8-26) 27 mg/dL (8-26) Creatinine 1.7 mg/dL (0.7-1.3) 1.3 mg/dL (0.7-1.3) Estimated GFR (Cockcroft-Gault) 39.5 53.8 Glucose Level 182 mg/dL (70-99) 102 mg/dL (70-99) Calcium Level 9.0 mg/dL (8.5-10.1) 8.1 mg/dL (8.5-10.1) Magnesium Level 1.6 mg/dL (1.8-2.4) 1.9 mg/dL (1.8-2.4) Total Bilirubin 1.1 mg/dL (0.2-1.0) 0.7 mg/dL (0.2-1.0) Direct Bilirubin 0.3 mg/dL (0.0-0.2) Aspartate Amino Transf (AST/SGOT) 38 U/L (15-37) 28 U/L (15-37) Alanine Aminotransferase (ALT/SGPT) 34 U/L (16-63) 29 U/L (16-63) Alkaline Phosphatase 24 U/L (46-116) 16 U/L (46-116) Creatine Kinase 416 U/L (39-308) Creatine Kinase MB (Mass) 3.1 ng/mL (0.0-3.6) Creatine Kinase MB Relative Index 0.7 % (0-4) Troponin I Quantitative 0.036 ng/mL (0.000-0.055) GT-Wwi-F-Type Natriuretic Peptide 974 pg/mL (0-449) Total Protein 7.3 g/dL (6.4-8.2) 5.8 g/dL (6.4-8.2) Albumin 3.7 g/dL (3.4-5.0) 3.0 g/dL (3.4-5.0) Urine Collection Type Unknown Urine Color Yellow Urine Clarity Clear Urine pH 6.0 Urine Specific Carlos 1.015 Urine Protein 4.3 mg/dL (Not Estab.) Urine Glucose (UA) Negative mg/dL (NEG) Urine Ketones (Stick) Negative mg/dL (NEG) Urine Blood Negative (NEG) Urine Nitrite Negative (NEG) Urine Bilirubin Negative (NEG) Urine Urobilinogen Dipstick 1.0 mg/dL (0.2 mg/dL) Urine Leukocyte Esterase Negative (NEG) Urine RBC 0 /HPF (0-2) Urine WBC Occ /HPF (0-4) Urine Squamous Epithelial Cells Few /LPF Urine Bacteria 0 /HPF (0-FEW) Urine Random Sodium 76 mmol/L (Not Estab.) Urine Creatinine 47.1 mg/dL (Not Estab.) Urine Protein/Creatinine Ratio 91 mg/g creat (0-200) Glucose (Fingerstick) 146 mg/dL (70-99) BUN/Creatinine Ratio 21 (6-20) Phosphorus Level 3.7 mg/dL (2.6-4.7) Albumin/Globulin Ratio 1.1 (1.0-1.7) Laboratory Tests Test 06/10/17 16:22 06/11/17 03:30 Glucose (Fingerstick) 146 mg/dL (70-99) Hemoglobin 8.2 g/dL (13.0-17.5) Sodium Level 141 mmol/L (136-145) Potassium Level 4.2 mmol/L (3.5-5.1) Chloride Level 105 mmol/L (98-107) Carbon Dioxide Level 26 mmol/L (21-32) Anion Gap 10 (6-14) Blood Urea Nitrogen 27 mg/dL (8-26) Creatinine 1.3 mg/dL (0.7-1.3) Estimated GFR (Cockcroft-Gault) 53.8 BUN/Creatinine Ratio 21 (6-20) Glucose Level 102 mg/dL (70-99) Calcium Level 8.1 mg/dL (8.5-10.1) Phosphorus Level 3.7 mg/dL (2.6-4.7) Magnesium Level 1.9 mg/dL (1.8-2.4) Total Bilirubin 0.7 mg/dL (0.2-1.0) Aspartate Amino Transf (AST/SGOT) 28 U/L (15-37) Alanine Aminotransferase (ALT/SGPT) 29 U/L (16-63) Alkaline Phosphatase 16 U/L (46-116) Total Protein 5.8 g/dL (6.4-8.2) Albumin 3.0 g/dL (3.4-5.0) Albumin/Globulin Ratio 1.1 (1.0-1.7) Brief Hospital Course Mr. Nicholas is a 76 old recent admit acute pulmonary embolism and deep venous thrombosis i s/p syncopal episode and was found to have pulmonary embolism Dc on anticoagulation, then significant epistaxis as well as a right thigh hematoma. Anticoagulation was stopped in hospital, stated on eliquis 5 BID at DC 2 days ago, then returned with bleeding IVC filter placed close follow up for coaguplathy, hypercoag state Plan Plan . 1. s/p IVC filter, 2. At this point, the patient is high risk for continuing with anticoagulation and Eliquis has been discontinued. Risks outweighs benefits. He understands that if he has hypercoagulable state, then IVC filter does not provide full protection for recurrent PE. 3. followup V/Q scan in 4-6 weeks. If there are no new pulmonary emboli, then he can safely stay off of anticoagulation; however, if he develops a new pulmonary embolism or if the clot does not resolve, then we may in future consider low-dose Coumadin. 4. He will need a screening colonoscopy to rule out any occult malignancy. 5. Follow results of factor V leiden mutation. Discharge Information Condition at Discharge: Improved Follow Up: Weeks Disposition/Orders: D/C to Home Miscellaneous Medications Losartan Potassium (Losartan Potassium), (Reported) Trazodone Hcl (Trazodone Hcl), (Reported) Discontinued Medications Apixaban (Eliquis), 5 MG PO BID Patient Instructions Patient Instructions < 30 min will f/u CAREY Ku MD Jun 11, 2017 16:23
== END 2017-06-11 12:27 | disposition home or self-care (01) | DRG 167 ==
LOC: ER 09:12 → 2 NORTH 09:48
PROVIDERS: ADMIT Internal Medicine; ATTEND Internal Medicine
PROC: 06H03DZ Insertion of Intraluminal Device into Inferior Vena Cava, Percutaneous Approach (ICD-10-PCS; principal; 2017-06-10)
DX: I26.99 Other pulmonary embolism without acute cor pulmonale (principal); I82.4Y1 Acute embolism and thrombosis of unspecified deep veins of right proximal lower extremity; D68.32 Hemorrhagic disorder due to extrinsic circulating anticoagulants; E11.22 Type 2 diabetes mellitus with diabetic chronic kidney disease; D68.59 Other primary thrombophilia; N18.4 Chronic kidney disease, stage 4 (severe); N17.9 Acute kidney failure, unspecified; E83.42 Hypomagnesemia; S02.30XA Fracture of orbital floor, unspecified side, initial encounter for closed fracture; D50.0 Iron deficiency anemia secondary to blood loss (chronic); S13.4XXA Sprain of ligaments of cervical spine, initial encounter; I12.9 Hypertensive chronic kidney disease with stage 1 through stage 4 chronic kidney disease, or unspecified chronic kidney disease; R04.0 Epistaxis; E78.5 Hyperlipidemia, unspecified; G47.00 Insomnia, unspecified; X58.XXXA Exposure to other specified factors, initial encounter; Z79.01 Long term (current) use of anticoagulants; Z82.49 Family history of ischemic heart disease and other diseases of the circulatory system; Z86.711 Personal history of pulmonary embolism; Z86.718 Personal history of other venous thrombosis and embolism; Z88.0 Allergy status to penicillin; Z88.2 Allergy status to sulfonamides; Z88.5 Allergy status to narcotic agent; Z88.4 Allergy status to anesthetic agent; Z98.52 Vasectomy status; Y93.89 Activity, other specified; Y92.89 Other specified places as the place of occurrence of the external cause; Y99.8 Other external cause status
CPT/HCPCS: 36415; 37191; 72125; 76770; 76937; 80048; 80053; 80076; 81001; 82553; 82570; 82962; 83735; 83880; 84100; 84156; 84300; 84484; 85018; 85025; 85610; 86850; 86900; 86901; 93005; 96361; 96374; 96375; C1769; C1892; J1644; J3010; J7030; J7060; Q9967; 99285-25

== ENCOUNTER → 2017-07-09 | Outpatient (CLI) | payer OTHER | END | disposition home or self-care (01) | LOC: KCIC 12:24 | DX: M47.812 Spondylosis without myelopathy or radiculopathy, cervical region (principal); M50.323 Other cervical disc degeneration at C6-C7 level; M43.12 Spondylolisthesis, cervical region; I70.8 Atherosclerosis of other arteries; Z91.81 History of falling | CPT/HCPCS: 72050 ==

== ENCOUNTER → 2017-07-20 | Outpatient (CLI) | payer OTHER | END | disposition home or self-care (01) | LOC: NM 09:30 | DX: R07.9 Chest pain, unspecified (principal); R06.00 Dyspnea, unspecified | CPT/HCPCS: 71046; 78582; 96374; A9540; A9558 ==

== ENCOUNTER → 2017-08-02 | Outpatient (CLI) | payer OTHER | END | disposition home or self-care (01) | LOC: KCIC 13:02 | DX: S12.120D Other displaced dens fracture, subsequent encounter for fracture with routine healing (principal); M48.03 Spinal stenosis, cervicothoracic region; Z91.81 History of falling; X58.XXXD Exposure to other specified factors, subsequent encounter | CPT/HCPCS: 72050 ==

== ENCOUNTER → 2017-08-22 | Outpatient (CLI) | payer OTHER | END | disposition home or self-care (01) | LOC: KCIC 13:05 | DX: S12.000A Unspecified displaced fracture of first cervical vertebra, initial encounter for closed fracture (principal); M47.892 Other spondylosis, cervical region; X58.XXXA Exposure to other specified factors, initial encounter; Y93.89 Activity, other specified; Y92.89 Other specified places as the place of occurrence of the external cause; Y99.8 Other external cause status | CPT/HCPCS: 72040 ==

== ENCOUNTER → 2017-09-18 | Outpatient (CLI) | payer OTHER | END | disposition home or self-care (01) | LOC: KCIC CT 13:10 | DX: S12.090D Other displaced fracture of first cervical vertebra, subsequent encounter for fracture with routine healing (principal); S13.1 Subluxation and dislocation of cervical vertebrae; M47.892 Other spondylosis, cervical region; X58.XXXD Exposure to other specified factors, subsequent encounter | CPT/HCPCS: 72125 ==

== ENCOUNTER → 2017-10-31 | Outpatient (CLI) | payer OTHER | END | disposition home or self-care (01) | LOC: KCIC CT 12:11 | DX: S12.000A Unspecified displaced fracture of first cervical vertebra, initial encounter for closed fracture (principal); X58.XXXA Exposure to other specified factors, initial encounter; Y93.89 Activity, other specified; Y92.89 Other specified places as the place of occurrence of the external cause; Y99.8 Other external cause status | CPT/HCPCS: 72125 ==

== ENCOUNTER → 2017-11-16 | Outpatient (CLI) | payer OTHER | END | disposition home or self-care (01) | LOC: KCIC 11:06 | DX: S12.040 Displaced lateral mass fracture of first cervical vertebra (principal); M47.892 Other spondylosis, cervical region; M25.78 Osteophyte, vertebrae; X58.XXXD Exposure to other specified factors, subsequent encounter | CPT/HCPCS: 72040 ==

== ENCOUNTER 2019-01-28 20:02 | Inpatient (IN) | payer OTHER ==
[~2019-01-28] VITALS: Ht 185.4 cm; Wt 88.9 kg
[~2019-01-28 20:02] MED LIST changes: +ACET325T9 PO; +FLUD0.1T PO; +LOSA100T14; -LOSA100T6; +OXYC1TAB7 PO; +RANI150C PO; +SENN1TAB15 PO; +TRAZ-118; -TRAZ50TA15
[2019-01-28 20:31] LABS: BASO % 1 % (0-3); EOS % 1 % (0-3); HEMATOCRIT 42.8 % (39.0-53.0); LYMPH % 15 % (24-48); MEAN CORPUSCULAR HEMOGLOBIN 36 pg (25-35); MEAN CORPUSCULAR HGB CONC 35 g/dL (31-37); MEAN CORPUSCULAR VOLUME 103 fL (79-100); MONO # 0.5 x10^3/uL (0.0-1.1); MONO % 8 % (0-9); NEUT # 5.1 x10^3/uL (1.8-7.7); NEUT % 76 % (31-73); PLATELET COUNT 188 x10^3/uL (140-400); RED BLOOD COUNT 4.16 x10^6/uL (4.30-5.70); RED CELL DISTRIBUTION WIDTH 14.3 % (11.5-14.5); WHITE BLOOD COUNT 6.7 x10^3/uL (4.0-11.0)
[2019-01-28 20:49] LABS: CALCIUM 9.6 mg/dL (8.5-10.1); CREATININE 2.2 mg/dL (0.7-1.3); GFR 29.2; POTASSIUM 4.8 mmol/L (3.5-5.1)
[2019-01-28 20:55] LABS: ALBUMIN 4.3 g/dL (3.4-5.0); ALBUMIN/GLOBULIN RATIO 1.1 (1.0-1.7); MAGNESIUM 1.7 mg/dL (1.8-2.4); TOTAL BILIRUBIN 0.6 mg/dL (0.2-1.0); TOTAL PROTEIN 8.3 g/dL (6.4-8.2)
--- NOTE | 2019-01-28 21:35 | PHYS DOC ---
Past Medical History Past Medical History: Diabetes-Type II, DVT, Hypertension, Vascular Disease Additional Past Medical Histor: pulmonary embolism, orthostatic hypotention. Past Surgical History: Other Additional Past Surgical Histo: VASECTOMY, IVC FILTER Alcohol Use: None Drug Use: None Adult General Chief Complaint Chief Complaint: DIZZY/LIGHT HEADED HPI HPI Patient is a 78 year old male who presents via EMS with complaining of dizziness. Patient states he has had history of orthostatic hypotension and taking Midodrine 3 times a day. Patient states he had a heavy lunch today with some beer and did not drink enough liquids and felt dehydrated and around 1600 had episodes of dizziness and near syncope with standing up like his previous episodes of orthostatic hypotension. Patient denies chest pain and shortness of breath and focal neuro deficit. Patient states the episodes of dizziness was worse than his usual today and decided to call 911. EMS reported that patient had blood pressure of 150s that dropped to 77. patient had history of PE in 2017 and used to take Eliquis but because of GI bleeding it was stopped and vena cava filter was placed. patient denies recent immobilization or shortness of breath and neck pain. Review of Systems Review of Systems Constitutional: Denies fever or chills [] Eyes: Denies change in visual acuity, redness, or eye pain [] HENT: Denies nasal congestion or sore throat [] Respiratory: Denies cough or shortness of breath [] Cardiovascular: No additional information not addressed in HPI [] GI: Denies abdominal pain, nausea, vomiting, bloody stools or diarrhea [] : Denies dysuria or hematuria [] Musculoskeletal: Denies back pain or joint pain [] Integument: Denies rash or skin lesions [] Neurologic: Denies headache, focal weakness or sensory changes [] Endocrine: Denies polyuria or polydipsia [] All other systems were reviewed and found to be within normal limits, except as documented in this note. Allergies Allergies Allergies Coded Allergies Type Severity Reaction Last Updated Verified Sulfa (Sulfonamide Antibiotics) Allergy Severe 06/06/17 Yes Penicillins Allergy Intermediate Rash 06/06/17 Yes codeine Adverse Reaction Intermediate Nausea and Vomiting 06/06/17 Yes procaine Adverse Reaction Mild Nausea and Vomiting 06/11/17 Yes Physical Exam Physical Exam PHYSICAL EXAM: CONSTITUTIONAL: Well developed, well nourished HEAD: normocephalic, atraumatic EENT: PERRL, EOMI. Conjunctivae normal color, sclerae non-icteric; moist mucous membranes. NECK: Supple, non-tender; no meningismus. LUNGS: Lungs CTA, breathing even and unlabored. Normal air movement. HEART: tachycardia no murmur CHEST: No deformity; non-tender ABDOMEN: The abdomen is soft, and non-tender, no masses or bruits. EXTREM: Normal ROM; no deformity, no calf tenderness. Normal pulses palpable in all extremities. There is no pedal edema. SKIN: No rash; no diaphoresis NEURO: Alert; normal speech and cognition; CN's grossly intact; strength grossly intact without focal deficit. BACK: No CVA TTP. Current Patient Data Vital Signs Vital Signs Date Time Temp Pulse Resp B/P (MAP) Pulse Ox O2 Delivery O2 Flow Rate FiO2 01/28/19 20:04 98.1 116 18 171/97 (121) 99 Room Air 98.1 Lab Values Laboratory Tests Test 01/28/19 20:20 White Blood Count 6.7 x10^3/uL (4.0-11.0) Red Blood Count 4.16 x10^6/uL (4.30-5.70) L Hemoglobin 15.0 g/dL (13.0-17.5) Hematocrit 42.8 % (39.0-53.0) Mean Corpuscular Volume 103 fL (79-100) H Mean Corpuscular Hemoglobin 36 pg (25-35) H Mean Corpuscular Hemoglobin Concent 35 g/dL (31-37) Red Cell Distribution Width 14.3 % (11.5-14.5) Platelet Count 188 x10^3/uL (140-400) Neutrophils (%) (Auto) 76 % (31-73) H Lymphocytes (%) (Auto) 15 % (24-48) L Monocytes (%) (Auto) 8 % (0-9) Eosinophils (%) (Auto) 1 % (0-3) Basophils (%) (Auto) 1 % (0-3) Neutrophils # (Auto) 5.1 x10^3/uL (1.8-7.7) Lymphocytes # (Auto) 1.0 x10^3/uL (1.0-4.8) Monocytes # (Auto) 0.5 x10^3/uL (0.0-1.1) Eosinophils # (Auto) 0.0 x10^3/uL (0.0-0.7) Basophils # (Auto) 0.0 x10^3/uL (0.0-0.2) Sodium Level 140 mmol/L (136-145) Potassium Level 4.8 mmol/L (3.5-5.1) Chloride Level 100 mmol/L (98-107) Carbon Dioxide Level 26 mmol/L (21-32) Anion Gap 14 (6-14) Blood Urea Nitrogen 40 mg/dL (8-26) H Creatinine 2.2 mg/dL (0.7-1.3) H Estimated GFR (Cockcroft-Gault) 29.2 BUN/Creatinine Ratio 18 (6-20) Glucose Level 218 mg/dL (70-99) H Calcium Level 9.6 mg/dL (8.5-10.1) Magnesium Level 1.7 mg/dL (1.8-2.4) L Total Bilirubin 0.6 mg/dL (0.2-1.0) Aspartate Amino Transferase (AST) 24 U/L (15-37) Alanine Aminotransferase (ALT) 31 U/L (16-63) Alkaline Phosphatase 27 U/L (46-116) L Troponin I Quantitative < 0.017 ng/mL (0.000-0.055) Total Protein 8.3 g/dL (6.4-8.2) H Albumin 4.3 g/dL (3.4-5.0) Albumin/Globulin Ratio 1.1 (1.0-1.7) Laboratory Tests 01/28/19 20:20 Laboratory Tests 01/28/19 20:20 EKG EKG EKG interpreted by me. EKG at 2020 showed sinus tachycardia at rate of 117, left fourth axis, low voltage QRS, Q waves in inferior leads, no acute ST and T-wave abnormalities. Radiology/Procedures Radiology/Procedures [] Course & Med Decision Making Course & Med Decision Making Pertinent Labs and Imaging studies reviewed. (See chart for details) Evaluation of patient in ER showed 78-year-old male patient with history of orthostatic hypotension brought in by EMS because of dizziness and near syncope with drop of blood pressure to 77. Patient had heart rate of 100s story of chronic tachycardia. Patient treated with IV fluid and felt better. Patient had negative orthostatic vitals but when he ambulated to the not tolerate ambulation. Plan to admit patient for observation of orthostatic hypotension.p atient had elevation of blood sugar with history of hyperglycemia without taking medication and increase of chronic renal insufficiency.Patient requiring admission for further evaluation and treatment. Discussed with Dr. Henry who is in agreement with admission. Discussed findings and plan with patient and family, who acknowledge understanding and agreement. Dragon Disclaimer Dragon Disclaimer This electronic medical record was generated, in whole or in part, using a voice recognition dictation system. Departure Departure Impression: Primary Impression: Orthostatic hypotension Additional Impressions: Dizziness Hyperglycemia Renal insufficiency Hypomagnesemia Disposition: ADMITTED INPATIENT (at 2214) Admitting Physician: HIMS (Dr. Henry accepted admission at 07/08/12) Condition: IMPROVED Referrals: REJI KHANNA MD (PCP) Problem Qualifiers LYSSA ADAMSON MD Jan 28, 2019 21:35
[2019-01-28 23:15] VITALS: BP 91/65
--- NOTE | 2019-01-28 23:20 | NUR ---
The patient, ALVIN WYATT, 78 y/o, M admitted by MAITE BOYKIN MD, was given written information regarding hospital policies, unit procedures and contact persons. Patient was transferred to the room by wheelchair. Valuables were checked and noted. family present at bedside, patient is in bed watching TV. Patient denies any needs at this time. This RN will continue to monitor the patient at this time.
[2019-01-28] MEDS: IV NORMAL SALINE 1000ML BAG 1,000 ML IV SCH (23:52)
[2019-01-29] VITALS (8 sets, daily range): BP systolic 115–165; BP diastolic 75–100
[2019-01-29] MEDS ORDERED: MIDO5TAB PO (00:09)
[2019-01-29] MEDS ORDERED: RANI-348 PO (00:09)
[2019-01-29] MEDS ORDERED: TRAZ-118 PO (00:09)
[2019-01-29] MEDS: traZODone 50 MG TABLET. PO SCH ×2 (00:47→20:42)
--- NOTE | 2019-01-29 05:48 | EKG ---
[facility] [address] [place] [address] Test Date: 2019-01-28 Test Time: 20:21:44 Pat Name: ALVIN WYATT Department: Room: Gender: M [employer] Administrator: : 1940 Requested By: LYSSA ADAMSON Order Number: [id number] Reading MD: Measurements Intervals [place] Rate: 117 P: 34 FL: 164 QRS: 0 QRSD: 68 T: 52 QT: 292 QTc: 411 Interpretive Statements SINUS TACHYCARDIA LEFTWARD AXIS LOW LIMB LEAD VOLTAGE QRS(T) CONTOUR ABNORMALITY CONSISTENT WITH INFERIOR INFARCT PROBABLY OLD ABNORMAL ECG RI6.01 Unconfirmed report No previous ECG available for comparison
--- NOTE | 2019-01-29 09:41 | PDOC1 ---
History and Physical Date of Admission Date of Admission DATE: 01/29/19 TIME: 09:41 Identification/Chief Complaint Chief Complaint seen in er , 78 year old male who presents via EMS with complaining of dizziness. Patient states he has had history of orthostatic hypotension and taking Midodrine 3 times a day. Patient states he had a heavy lunch 01/28 with some beer and did not drink enough liquids and felt dehydrated and around 1600 had episodes of dizziness and near syncope with standing Patient denies chest pain and shortness of breath and focal neuro deficit. Patient states the episodes of dizziness was worse than his usual and decided to call 911 Past Medical History Past Medical History Past Medical History Past Medical History: Diabetes-Type II, DVT, Hypertension, Vascular Disease Additional Past Medical Histor: pulmonary embolism, orthostatic hypotention. Past Surgical History: Other Additional Past Surgical Histo: VASECTOMY, IVC FILTER Alcohol Use: None Drug Use: None PAST SURGICAL HISTORY Past Surgical History vasectomy, IVC filter FAMILY HISTORY Family History father from [place] SOCIAL HISTORY Social History Smoke: No ALCOHOL: other (2-4 shots of scotch nightly) Drugs: None Lives: with Family family hx htn Cardiovascular: HTN Pulmonary: No pertinent hx CENTRAL NERVOUS SYSTEM: Other GI: No pertinent hx Heme/Onc: No pertinent hx Hepatobiliary: No pertinent hx Psych: No pertinent hx Musculoskeletal: low back pain, Osteoarthritis Rheumatologic: No pertinent hx Infectious disease: No pertinent hx Renal/: No pertinent hx Endocrine: Diabetes Past Surgical History Past Surgical History: Other Family History Family History: Hypertension, Other Social History Smoke: <1 pack per day ALCOHOL: heavy Drugs: None Current Problem List Problem List Problems Medical Problems: (1) Dizziness Status: Acute (2) Hyperglycemia Status: Acute (3) Hypomagnesemia Status: Acute (4) Orthostatic hypotension Status: Acute (5) Renal insufficiency Status: Acute Current Medications Current Medications Current Medications Sodium Chloride 1,000 ml @ 75 mls/hr [id number] IV Last administered on 01/28/19at 23:52; Start 01/28/19 at 22:15; Stop 01/29/19 at 22:14 Trazodone HCl (Desyrel) 50 mg HS PO ; Start 01/29/19 at 21:00; Stop 01/29/19 at 00:31; Status DC Trazodone HCl (Desyrel) 50 mg HS PO Last administered on 01/29/19at 00:48; Start 01/29/19 at 00:30 Active Scripts Active Tylenol (Acetaminophen) 325 Mg Tablet 650 Mg PO PRN Q6HRS PRN Reported Midodrine Hcl 5 Mg Tablet 5 Mg PO TID Ranitidine Hcl 75 Mg Tablet 75 Mg PO PRN PRN Trazodone Hcl 50 Mg Tablet 50 Mg PO HS Allergies Allergies: Coded Allergies: Sulfa (Sulfonamide Antibiotics) (Verified Allergy, Severe, 06/06/17) Penicillins (Verified Allergy, Intermediate, Rash, 06/06/17) codeine (Verified Adverse Reaction, Intermediate, Nausea and Vomiting, 06/06/17) procaine (Verified Adverse Reaction, Mild, Nausea and Vomiting, 06/11/17) ROS Review of System Review of Systems Review of Systems Constitutional: Denies fever or chills [] Eyes: Denies change in visual acuity, redness, or eye pain [] HENT: Denies nasal congestion or sore throat [] Respiratory: Denies cough or shortness of breath [] Cardiovascular: No additional information not addressed in HPI [] GI: Denies abdominal pain, nausea, vomiting, bloody stools or diarrhea [] : Denies dysuria or hematuria [] Musculoskeletal: Denies back pain or joint pain [] Integument: Denies rash or skin lesions [] Neurologic: Denies headache, focal weakness or sensory changes [] Endocrine: Denies polyuria or polydipsia [] 14 pt systems were reviewed and found to be within normal limits, except as documented Physical Exam Physical Exam Physical Exam Physical Exam PHYSICAL EXAM: CONSTITUTIONAL: Well developed, well nourished HEAD: normocephalic, atraumatic EENT: PERRL, EOMI. Conjunctivae normal color, sclerae non-icteric; moist mucous membranes. NECK: Supple, non-tender; no meningismus. LUNGS: Lungs CTA, breathing even and unlabored. Normal air movement. HEART: tachycardia no murmur CHEST: No deformity; non-tender ABDOMEN: The abdomen is soft, and non-tender, no masses or bruits. EXTREM: Normal ROM; no deformity, no calf tenderness. Normal pulses palpable in all extremities. There is no pedal edema. SKIN: No rash; no diaphoresis NEURO: Alert; normal speech and cognition; CN's grossly intact; strength grossly intact without focal deficit. BACK: No CVA TTP. General: Alert, Oriented X3, Cooperative HEENT: Atraumatic, PERRLA Lungs: Clear to auscultation Heart: RRR Breasts: Not examined Abdomen: Normal bowel sounds, Soft Rectal Exam: not examined PELVIC: Examination not indicated Extremities: No cyanosis Skin: No breakdown Neuro: Normal speech, Cranial nerves 3-12 NL Psych/Mental Status: Mental status NL Vitals Vitals Vital Signs Date Time Temp Pulse Resp B/P (MAP) Pulse Ox O2 Delivery O2 Flow Rate FiO2 01/29/19 08:00 Room Air 01/29/19 07:25 97.6 114 22 121/78 (92) 99 97.6 Labs Labs Laboratory Tests Test 01/28/19 20:20 White Blood Count 6.7 x10^3/uL (4.0-11.0) Red Blood Count 4.16 x10^6/uL (4.30-5.70) Hemoglobin 15.0 g/dL (13.0-17.5) Hematocrit 42.8 % (39.0-53.0) Mean Corpuscular Volume 103 fL (79-100) Mean Corpuscular Hemoglobin 36 pg (25-35) Mean Corpuscular Hemoglobin Concent 35 g/dL (31-37) Red Cell Distribution Width 14.3 % (11.5-14.5) Platelet Count 188 x10^3/uL (140-400) Neutrophils (%) (Auto) 76 % (31-73) Lymphocytes (%) (Auto) 15 % (24-48) Monocytes (%) (Auto) 8 % (0-9) Eosinophils (%) (Auto) 1 % (0-3) Basophils (%) (Auto) 1 % (0-3) Neutrophils # (Auto) 5.1 x10^3/uL (1.8-7.7) Lymphocytes # (Auto) 1.0 x10^3/uL (1.0-4.8) Monocytes # (Auto) 0.5 x10^3/uL (0.0-1.1) Eosinophils # (Auto) 0.0 x10^3/uL (0.0-0.7) Basophils # (Auto) 0.0 x10^3/uL (0.0-0.2) Sodium Level 140 mmol/L (136-145) Potassium Level 4.8 mmol/L (3.5-5.1) Chloride Level 100 mmol/L (98-107) Carbon Dioxide Level 26 mmol/L (21-32) Anion Gap 14 (6-14) Blood Urea Nitrogen 40 mg/dL (8-26) Creatinine 2.2 mg/dL (0.7-1.3) Estimated GFR (Cockcroft-Gault) 29.2 BUN/Creatinine Ratio 18 (6-20) Glucose Level 218 mg/dL (70-99) Calcium Level 9.6 mg/dL (8.5-10.1) Magnesium Level 1.7 mg/dL (1.8-2.4) Total Bilirubin 0.6 mg/dL (0.2-1.0) Aspartate Amino Transf (AST/SGOT) 24 U/L (15-37) Alanine Aminotransferase (ALT/SGPT) 31 U/L (16-63) Alkaline Phosphatase 27 U/L (46-116) Troponin I Quantitative < 0.017 ng/mL (0.000-0.055) Total Protein 8.3 g/dL (6.4-8.2) Albumin 4.3 g/dL (3.4-5.0) Albumin/Globulin Ratio 1.1 (1.0-1.7) Laboratory Tests Test 01/28/19 20:20 White Blood Count 6.7 x10^3/uL (4.0-11.0) Red Blood Count 4.16 x10^6/uL (4.30-5.70) Hemoglobin 15.0 g/dL (13.0-17.5) Hematocrit 42.8 % (39.0-53.0) Mean Corpuscular Volume 103 fL (79-100) Mean Corpuscular Hemoglobin 36 pg (25-35) Mean Corpuscular Hemoglobin Concent 35 g/dL (31-37) Red Cell Distribution Width 14.3 % (11.5-14.5) Platelet Count 188 x10^3/uL (140-400) Neutrophils (%) (Auto) 76 % (31-73) Lymphocytes (%) (Auto) 15 % (24-48) Monocytes (%) (Auto) 8 % (0-9) Eosinophils (%) (Auto) 1 % (0-3) Basophils (%) (Auto) 1 % (0-3) Neutrophils # (Auto) 5.1 x10^3/uL (1.8-7.7) Lymphocytes # (Auto) 1.0 x10^3/uL (1.0-4.8) Monocytes # (Auto) 0.5 x10^3/uL (0.0-1.1) Eosinophils # (Auto) 0.0 x10^3/uL (0.0-0.7) Basophils # (Auto) 0.0 x10^3/uL (0.0-0.2) Sodium Level 140 mmol/L (136-145) Potassium Level 4.8 mmol/L (3.5-5.1) Chloride Level 100 mmol/L (98-107) Carbon Dioxide Level 26 mmol/L (21-32) Anion Gap 14 (6-14) Blood Urea Nitrogen 40 mg/dL (8-26) Creatinine 2.2 mg/dL (0.7-1.3) Estimated GFR (Cockcroft-Gault) 29.2 BUN/Creatinine Ratio 18 (6-20) Glucose Level 218 mg/dL (70-99) Calcium Level 9.6 mg/dL (8.5-10.1) Magnesium Level 1.7 mg/dL (1.8-2.4) Total Bilirubin 0.6 mg/dL (0.2-1.0) Aspartate Amino Transf (AST/SGOT) 24 U/L (15-37) Alanine Aminotransferase (ALT/SGPT) 31 U/L (16-63) Alkaline Phosphatase 27 U/L (46-116) Troponin I Quantitative < 0.017 ng/mL (0.000-0.055) Total Protein 8.3 g/dL (6.4-8.2) Albumin 4.3 g/dL (3.4-5.0) Albumin/Globulin Ratio 1.1 (1.0-1.7) Images Images LEFT VENTRICLE The left ventricle is normal size. There is mild concentric left ventricular hypertrophy. Left ventricle systolic function is normal. The Ejection Fraction is 50-55%. Grossly normal wall motion. Sepatl motion suggestive of conduction defect. Transmitral Doppler flow pattern is Grade I-abnormal relaxation pattern. No left ventricle thrombus noted on this study. RIGHT VENTRICLE The right ventricle is severely dilated. The right ventricular systolic function mildly reduced. ATRIA The left atrium size is normal. The right atrium size is mild to moderately dilated. The interatrial septum is intact with no evidence for an atrial septal defect or patent foramen ovale as noted on 2-D or Doppler imaging. AORTIC VALVE The aortic valve is calcified but opens well. Doppler and Color Flow revealed no significant aortic regurgitation. There is no significant aortic valvular stenosis. MITRAL VALVE The mitral valve is normal in structure and function. There is no evidence of mitral valve prolapse. There is no mitral valve stenosis. Doppler and Color Flow revealed no mitral valve regurgitation noted. TRICUSPID VALVE The tricuspid valve is normal in structure and function. Doppler and Color Flow revealed mild tricuspid regurgitation. There is mild pulmonary hypertension. The PA pressure was estimated at 31 mmHg (May be underestimated) There is no tricuspid valve prolapse or vegetation. There is no tricuspid valve stenosis. PULMONIC VALVE Doppler and Color Flow revealed no pulmonic valvular regurgitation. There is no pulmonic valvular stenosis. GREAT VESSELS The aortic root is normal in size. The ascending aorta is normal in size. The IVC is normal in size and collapses >50% with inspiration. PERICARDIAL EFFUSION There is no pleural effusion. There is no evidence of significant pericardial effusion. Critical Notification Critical Value: No <Conclusion> Left ventricle systolic function is normal. The Ejection Fraction is 50-55%. Grossly normal wall motion. Sepatl motion suggestive of conduction defect. The right ventricle is severely dilated. The right ventricular systolic function mildly reduced. Doppler and Color Flow revealed mild tricuspid regurgitation. There is mild pulmonary hypertension. The PA pressure was estimated at 31 mmHg (May be underestimated) Signed by : Garret Lopez, Electronically Approved : 06/07/2017 12:59:20 VTE Prophylaxis Ordered VTE Prophylaxis Devices: No VTE Pharmacological Prophylaxi: Yes Assessment/Plan Assessment/Plan Impression: Orthostatic hypotension echo 2017 Left ventricle systolic function is normal. The Ejection Fraction is 50-55%. Grossly normal wall motion. Septall motion suggestive of conduction defect. right ventricle was severely dilated. right ventricular systolic function mildly reduced. mild tricuspid regurgitation. There was mild pulmonary hypertension. Dizziness Hyperglycemia Renal insufficiency Hypomagnesemia hx alcohol abuse ADMITTED replete mg tele home meds alcohol withdrawal precautions cardiology consult echo 76 min pt exam, chart review, > 50% of time spent with exam, chart review, pt care coordination ANNELISE MICHEL MD Jan 29, 2019 09:41
[2019-01-29] MEDS: MIDODRINE 5 MG TABLET PO SCH ×2 (12:17→17:05)
[2019-01-29] MEDS ORDERED: FAMOTIDINE 20 MG TABLET. PO PRN (12:21)
[2019-01-29] MEDS: IV NORMAL SALINE 1000ML BAG 1,000 ML IV SCH (12:21)
[2019-01-29] MEDS ORDERED: cloNIDine HCL 0.1 MG TABLET PO PRN (12:30)
[2019-01-29] MEDS ORDERED: LORazepam 1 MG TABLET PO PRN ×2 (12:30)
[2019-01-29] MEDS ORDERED: THIAMINE IM 200 MG/2 ML VIAL. IM SCH (13:00)
--- NOTE | 2019-01-29 13:19 | PDOC2 ---
DAVEY ENRIQUE RELAY ADJUSTER 01/29/19 1318: CARDIAC CONSULT DATE OF CONSULT Date of Consult DATE: 01/29/19 TIME: 13:16 REASON FOR CONSULT Reason for Consult: orthostasis REFERRING PHYSICIAN Referring Physician: Dr. Grimes SOURCE Source: Chart review, Patient HISTORY OF PRESENT ILLNESS HISTORY OF PRESENT ILLNESS This is a 78 yo male, with a history of orthostatic hypotension on Midodrine, who presented secondary to dizziness. Began feeling slightly lightheaded Sunday. Was significantly worse yesterday so he came in for further evaluation and treatment. Denies any syncope, diaphoresis, shortness of breath or nausea/vomiting. Feels much better today following hydration. PAST MEDICAL HISTORY Cardiovascular: HTN, Other (orthostatic hypotension) GI: GERD Heme/Onc: Other (PE/DVT s/p IVC filter ) Musculoskeletal: Other (low back pain (sciatica), Osteoarthritis) Endocrine: Diabetes PAST SURGICAL HISTORY Past Surgical History IVC filter, skin CA removal, vasectomy FAMILY HISTORY Family History: Other ([place]- father ) SOCIAL HISTORY Social History Smoke: No ALCOHOL: Drugs: None Lives: with Family CURRENT MEDICATIONS CURRENT MEDICATIONS Current Medications Medications (Trade) Dose Ordered Sig/Bisi Route PRN Reason Start Time Stop Time Status Last Admin Dose Admin Sodium Chloride 1,000 ml @ 75 mls/hr [id number] IV 01/28/19 22:15 01/29/19 22:14 01/29/19 12:21 Trazodone HCl (Desyrel) 50 mg HS PO 01/29/19 00:30 01/29/19 00:48 Midodrine (Proamatine) 5 mg TID@0900,1200,1700 PO 01/29/19 12:00 01/29/19 12:17 ALLERGIES ALLERGIES: Coded Allergies: Sulfa (Sulfonamide Antibiotics) (Verified Allergy, Severe, 06/06/17) Penicillins (Verified Allergy, Intermediate, Rash, 06/06/17) codeine (Verified Adverse Reaction, Intermediate, Nausea and Vomiting, 06/06/17) procaine (Verified Adverse Reaction, Mild, Nausea and Vomiting, 06/11/17) ROS Review of System 14 point ROS conducted with pertinent positives noted above in HPI. ENDOCRINE: No: Galactorrhea PHYSICAL EXAM General: Alert, Oriented X3, Cooperative, No acute distress HEENT: Atraumatic, Mucous membr. moist/pink Lungs: Clear to auscultation, Normal air movement Heart: Regular rate, Normal S1, Normal S2 Abdomen: Soft, No tenderness Extremities: No edema, Normal pulses Skin: No significant lesion Neuro: Normal speech, Sensation intact Psych/Mental Status: Mental status NL, Mood NL MUSCULOSKELETAL: Osteoarthritic changes both hands VITALS/I&O VITALS/I&O: Vital Signs Date Time Temp Pulse Resp B/P (MAP) Pulse Ox O2 Delivery O2 Flow Rate FiO2 01/29/19 12:17 87 115/75 01/29/19 11:00 98.1 22 99 Room Air 98.1 LABS Lab: Laboratory Tests Test 01/28/19 20:20 White Blood Count 6.7 x10^3/uL (4.0-11.0) Red Blood Count 4.16 x10^6/uL (4.30-5.70) L Hemoglobin 15.0 g/dL (13.0-17.5) Hematocrit 42.8 % (39.0-53.0) Mean Corpuscular Volume 103 fL (79-100) H Mean Corpuscular Hemoglobin 36 pg (25-35) H Mean Corpuscular Hemoglobin Concent 35 g/dL (31-37) Red Cell Distribution Width 14.3 % (11.5-14.5) Platelet Count 188 x10^3/uL (140-400) Neutrophils (%) (Auto) 76 % (31-73) H Lymphocytes (%) (Auto) 15 % (24-48) L Monocytes (%) (Auto) 8 % (0-9) Eosinophils (%) (Auto) 1 % (0-3) Basophils (%) (Auto) 1 % (0-3) Neutrophils # (Auto) 5.1 x10^3/uL (1.8-7.7) Lymphocytes # (Auto) 1.0 x10^3/uL (1.0-4.8) Monocytes # (Auto) 0.5 x10^3/uL (0.0-1.1) Eosinophils # (Auto) 0.0 x10^3/uL (0.0-0.7) Basophils # (Auto) 0.0 x10^3/uL (0.0-0.2) Sodium Level 140 mmol/L (136-145) Potassium Level 4.8 mmol/L (3.5-5.1) Chloride Level 100 mmol/L (98-107) Carbon Dioxide Level 26 mmol/L (21-32) Anion Gap 14 (6-14) Blood Urea Nitrogen 40 mg/dL (8-26) H Creatinine 2.2 mg/dL (0.7-1.3) H Estimated GFR (Cockcroft-Gault) 29.2 BUN/Creatinine Ratio 18 (6-20) Glucose Level 218 mg/dL (70-99) H Calcium Level 9.6 mg/dL (8.5-10.1) Magnesium Level 1.7 mg/dL (1.8-2.4) L Total Bilirubin 0.6 mg/dL (0.2-1.0) Aspartate Amino Transferase (AST) 24 U/L (15-37) Alanine Aminotransferase (ALT) 31 U/L (16-63) Alkaline Phosphatase 27 U/L (46-116) L Troponin I Quantitative < 0.017 ng/mL (0.000-0.055) Total Protein 8.3 g/dL (6.4-8.2) H Albumin 4.3 g/dL (3.4-5.0) Albumin/Globulin Ratio 1.1 (1.0-1.7) Laboratory Tests 01/28/19 20:20 Laboratory Tests 01/28/19 20:20 ECHOCARDIOGRAM ECHOCARDIOGRAM <Conclusion> Left ventricle systolic function is normal. The Ejection Fraction is 50-55%. Grossly normal wall motion. Sepatl motion suggestive of conduction defect. The right ventricle is severely dilated. The right ventricular systolic function mildly reduced. Doppler and Color Flow revealed mild tricuspid regurgitation. There is mild pulmonary hypertension. The PA pressure was estimated at 31 mmHg (May be u nderestimated) DATE: 06/07/17 1259 ASSESSMENT/PLAN ASSESSMENT/PLAN 1. Dizziness; likely induced by dehydration. resolved. 2. H/o orthostatic hypotension on Midodrine 3. Hypertension; controlled 4. Diabetes, II; as per PCP 5. JINA; IVFs 6. Hypomagnesemia; replaced 7. H/o PE and DVT; s/p IVC filter Recommendations Continue IVFs Midodrine as scheduled Check ortho's LE compression stockings. Supportive care SIVA HILLMAN MD 01/29/19 4822: CARDIAC CONSULT ASSESSMENT/PLAN ASSESSMENT/PLAN Patient seen and examined. Agree with DIGITAL DIRECTOR's assessment and plan. Agree with intravenous fluids for dehydration Continue Midodrine for orthostasis If he continues to be orthostatic despite hydration, we will consider increasing midodrine dose. Thank you for your consultation. DAVEY ENRIQUE APRN Jan 29, 2019 13:18 SIVA HILLMAN MD Jan 29, 2019 17:22
[2019-01-29 14:19] LABS: AMPHETAMINE/METHAMPHETAMINE NEG (NEG); BARBITURATES NEG (NEG); BENZODIAZEPINES NEG (NEG); CANNABINOIDS NEG (NEG); COCAINE NEG (NEG); METHADONE NEG (NEG); OPIATES NEG (NEG); PHENCYCLIDINE NEG (NEG)
--- NOTE | 2019-01-29 15:18 | NUR ---
SW following pt for dc planning. Chart reviewed and discussed with RN. Pt lives at home with family. PT/OT pending. SW will await for PT/OT recommendation to assess skilled needs.
[2019-01-29] MEDS: MULTIVITAMIN with MINERAL TABLET. PO SCH (15:54)
[2019-01-29] MEDS: MAGNESIUM OXIDE 400 MG TABLET PO SCH ×2 (15:54→20:42)
[2019-01-29] MEDS: FOLIC ACID 1 MG TABLET. PO SCH (15:55)
[2019-01-29 16:33] LABS: BASO % 0 % (0-3); EOS % 1 % (0-3); HEMATOCRIT 38.7 % (39.0-53.0); HEMOGLOBIN 13.4 g/dL (13.0-17.5); LYMPH # 0.6 x10^3/uL (1.0-4.8); LYMPH % 10 % (24-48); MEAN CORPUSCULAR HEMOGLOBIN 36 pg (25-35); MEAN CORPUSCULAR HGB CONC 35 g/dL (31-37); MEAN CORPUSCULAR VOLUME 104 fL (79-100); MONO # 0.5 x10^3/uL (0.0-1.1); MONO % 8 % (0-9); NEUT # 4.8 x10^3/uL (1.8-7.7); NEUT % 80 % (31-73); PLATELET COUNT 144 x10^3/uL (140-400); RED BLOOD COUNT 3.73 x10^6/uL (4.30-5.70); RED CELL DISTRIBUTION WIDTH 14.7 % (11.5-14.5)
[2019-01-29 16:49] LABS: ALBUMIN/GLOBULIN RATIO 1.1 (1.0-1.7); CALCIUM 8.9 mg/dL (8.5-10.1); CREATININE 1.8 mg/dL (0.7-1.3); GFR 36.8; POTASSIUM 4.4 mmol/L (3.5-5.1); TOTAL BILIRUBIN 0.8 mg/dL (0.2-1.0); TOTAL PROTEIN 7.6 g/dL (6.4-8.2)
[2019-01-29] MEDS: ACETAMINOPHEN 325 MG TABLET. PO PRN (20:42)
[2019-01-29] MEDS ORDERED: traZODone 50 MG TABLET. PO SCH (21:00)
[2019-01-30 03:38] VITALS: BP 137/90
[2019-01-30] MEDS: ACETAMINOPHEN 325 MG TABLET. PO PRN (06:47)
[2019-01-30 07:50] VITALS: BP 122/72
[2019-01-30] MEDS: MULTIVITAMIN with MINERAL TABLET. PO SCH (08:46)
[2019-01-30] MEDS: FOLIC ACID 1 MG TABLET. PO SCH (08:47)
[2019-01-30] MEDS: MAGNESIUM OXIDE 400 MG TABLET PO SCH (08:47)
[2019-01-30] MEDS: MIDODRINE 5 MG TABLET PO SCH ×2 (08:47→12:42)
--- NOTE | 2019-01-30 10:13 | PDOC ---
[employer] PROGRESS NOTE Chief Complaint Chief Complaint Orthostatic hypotension DM type 2 DVT HTN Vasectomy Prior hx of PE IVC filter History of Present Illness History of Present Illness 01/30/19 Pt. seen and examined (well-appearing; most recent BP is stable) Chart evaluated DW RN Vitals/I&O Vitals/I&O: Vital Signs Date Time Temp Pulse Resp B/P (MAP) Pulse Ox O2 Delivery O2 Flow Rate FiO2 01/30/19 08:49 108 122/72 01/30/19 07:50 97.9 20 97 Room Air 97.9 I & O 01/29/19 01/29/19 01/30/19 14:59 22:59 06:59 Intake Total 440 ml 440 ml 200 ml Balance 440 ml 440 ml 200 ml Physical Exam General: Alert, Oriented X3, Cooperative, No acute distress Heart: Regular rate, Normal S1, Normal S2 Lungs: Clear Abdomen: Soft, No tenderness Extremities: No edema, Normal pulses Skin: No rashes, No breakdown, No significant lesion Labs Labs: Laboratory Tests Test 01/29/19 13:15 01/29/19 15:00 01/29/19 16:15 Urine Opiates Screen Neg (NEG) Urine Methadone Screen Neg (NEG) Urine Barbiturates Neg (NEG) Urine Phencyclidine Screen Neg (NEG) Urine Amphetamine/Methamphetamine Neg (NEG) Urine Benzodiazepines Screen Neg (NEG) Urine Cocaine Screen Neg (NEG) Urine Cannabinoids Screen Neg (NEG) Urine Ethyl Alcohol Neg (NEG) Glucose (Fingerstick) 213 mg/dL (70-99) White Blood Count 6.0 x10^3/uL (4.0-11.0) Red Blood Count 3.73 x10^6/uL (4.30-5.70) Hemoglobin 13.4 g/dL (13.0-17.5) Hematocrit 38.7 % (39.0-53.0) Mean Corpuscular Volume 104 fL (79-100) Mean Corpuscular Hemoglobin 36 pg (25-35) Mean Corpuscular Hemoglobin Concent 35 g/dL (31-37) Red Cell Distribution Width 14.7 % (11.5-14.5) Platelet Count 144 x10^3/uL (140-400) Neutrophils (%) (Auto) 80 % (31-73) Lymphocytes (%) (Auto) 10 % (24-48) Monocytes (%) (Auto) 8 % (0-9) Eosinophils (%) (Auto) 1 % (0-3) Basophils (%) (Auto) 0 % (0-3) Neutrophils # (Auto) 4.8 x10^3/uL (1.8-7.7) Lymphocytes # (Auto) 0.6 x10^3/uL (1.0-4.8) Monocytes # (Auto) 0.5 x10^3/uL (0.0-1.1) Eosinophils # (Auto) 0.0 x10^3/uL (0.0-0.7) Basophils # (Auto) 0.0 x10^3/uL (0.0-0.2) Sodium Level 137 mmol/L (136-145) Potassium Level 4.4 mmol/L (3.5-5.1) Chloride Level 100 mmol/L (98-107) Carbon Dioxide Level 28 mmol/L (21-32) Anion Gap 9 (6-14) Blood Urea Nitrogen 37 mg/dL (8-26) Creatinine 1.8 mg/dL (0.7-1.3) Estimated GFR (Cockcroft-Gault) 36.8 BUN/Creatinine Ratio 21 (6-20) Glucose Level 197 mg/dL (70-99) Calcium Level 8.9 mg/dL (8.5-10.1) Total Bilirubin 0.8 mg/dL (0.2-1.0) Aspartate Amino Transf (AST/SGOT) 21 U/L (15-37) Alanine Aminotransferase (ALT/SGPT) 26 U/L (16-63) Alkaline Phosphatase 24 U/L (46-116) Total Protein 7.6 g/dL (6.4-8.2) Albumin 4.0 g/dL (3.4-5.0) Albumin/Globulin Ratio 1.1 (1.0-1.7) Thyroid Stimulating Hormone (TSH) 0.825 uIU/mL (0.358-3.74) Review of Systems Review of Systems: No headache No fever/chills No acute dizziness Assessment and Plan Assessmemt and Plan Problems Medical Problems: (1) Dizziness Status: Acute (2) Hyperglycemia Status: Acute (3) Hypomagnesemia Status: Acute (4) Orthostatic hypotension Status: Acute (5) Renal insufficiency Status: Acute Assessment: Orthostatic hypotension DM type 2 DVT HTN Vasectomy Prior hx of PE IVC filter Plan: Probable D/C if ok w/ cardiology Continue monitoring vitals Continue Midodrine Switch to PO Thiamine Alcohol withdrawal protocol Comment Review of Relevant I have reviewed the following items chelsea (where applicable) has been applied. Medications: Current Medications Medications (Trade) Dose Ordered Sig/Bisi Route PRN Reason Start Time Stop Time Status Last Admin Dose Admin Midodrine (Proamatine) 5 mg TID@0900,1200,1700 PO 01/29/19 12:00 01/30/19 08:49 Multivitamins (Thera M Plus) 1 tab DAILY PO 01/29/19 13:00 01/30/19 08:49 Folic Acid (Folic Acid) 1 mg DAILY PO 01/29/19 13:00 01/30/19 08:49 Thiamine HCl 100 mg DAILY IM 01/29/19 13:00 02/04/19 12:59 01/29/19 15:56 Acetaminophen (Tylenol) 650 mg PRN Q6HRS PRN PO MILD PAIN / TEMP 01/29/19 12:30 01/30/19 06:47 Magnesium Oxide (Magnesium Oxide) 400 mg BID PO 01/29/19 15:00 01/30/19 08:49 SHANDA COULTER III DO Jan 30, 2019 10:12
[2019-01-30 11:14] VITALS: BP_SYST 107; BP_SYST 108; BP_SYST 123; BP_SYST 73; BP_SYST 79; BP_DIAS 44; BP_DIAS 51; BP_DIAS 67; BP_DIAS 70; BP_DIAS 87; BP_DIAS 94
--- NOTE | 2019-01-30 11:50 | PDOC ---
KAMALA GOLDMAN STAFF COUNSEL 01/30/19 1150: CARDIO Progress Notes Date and Time Date of Service 01/30/2019 Time of Evaluation 1140 Subjective Subjective: No Chest Pain, No shortness of breath, No Palpitations, Other (dizzy with ambulation) Vitals Vitals Vital Signs Date Time Temp Pulse Resp B/P (MAP) Pulse Ox O2 Delivery O2 Flow Rate FiO2 01/30/19 11:14 98.5 99 20 123/94 (104) 98 Room Air 98.5 Weight Weight [ ] Input and Output Intake and Output Intake and Output 01/30/19 06:59 Intake Total 1080 ml Balance 1080 ml Intake Oral 1080 ml # Voids 8 Laboratory Labs Laboratory Tests Test 01/29/19 13:15 01/29/19 15:00 01/29/19 16:15 Urine Opiates Screen Neg (NEG) Urine Methadone Screen Neg (NEG) Urine Barbiturates Neg (NEG) Urine Phencyclidine Screen Neg (NEG) Urine Amphetamine/Methamphetamine Neg (NEG) Urine Benzodiazepines Screen Neg (NEG) Urine Cocaine Screen Neg (NEG) Urine Cannabinoids Screen Neg (NEG) Urine Ethyl Alcohol Neg (NEG) Glucose (Fingerstick) 213 mg/dL (70-99) White Blood Count 6.0 x10^3/uL (4.0-11.0) Red Blood Count 3.73 x10^6/uL (4.30-5.70) Hemoglobin 13.4 g/dL (13.0-17.5) Hematocrit 38.7 % (39.0-53.0) Mean Corpuscular Volume 104 fL (79-100) Mean Corpuscular Hemoglobin 36 pg (25-35) Mean Corpuscular Hemoglobin Concent 35 g/dL (31-37) Red Cell Distribution Width 14.7 % (11.5-14.5) Platelet Count 144 x10^3/uL (140-400) Neutrophils (%) (Auto) 80 % (31-73) Lymphocytes (%) (Auto) 10 % (24-48) Monocytes (%) (Auto) 8 % (0-9) Eosinophils (%) (Auto) 1 % (0-3) Basophils (%) (Auto) 0 % (0-3) Neutrophils # (Auto) 4.8 x10^3/uL (1.8-7.7) Lymphocytes # (Auto) 0.6 x10^3/uL (1.0-4.8) Monocytes # (Auto) 0.5 x10^3/uL (0.0-1.1) Eosinophils # (Auto) 0.0 x10^3/uL (0.0-0.7) Basophils # (Auto) 0.0 x10^3/uL (0.0-0.2) Sodium Level 137 mmol/L (136-145) Potassium Level 4.4 mmol/L (3.5-5.1) Chloride Level 100 mmol/L (98-107) Carbon Dioxide Level 28 mmol/L (21-32) Anion Gap 9 (6-14) Blood Urea Nitrogen 37 mg/dL (8-26) Creatinine 1.8 mg/dL (0.7-1.3) Estimated GFR (Cockcroft-Gault) 36.8 BUN/Creatinine Ratio 21 (6-20) Glucose Level 197 mg/dL (70-99) Calcium Level 8.9 mg/dL (8.5-10.1) Total Bilirubin 0.8 mg/dL (0.2-1.0) Aspartate Amino Transf (AST/SGOT) 21 U/L (15-37) Alanine Aminotransferase (ALT/SGPT) 26 U/L (16-63) Alkaline Phosphatase 24 U/L (46-116) Total Protein 7.6 g/dL (6.4-8.2) Albumin 4.0 g/dL (3.4-5.0) Albumin/Globulin Ratio 1.1 (1.0-1.7) Thyroid Stimulating Hormone (TSH) 0.825 uIU/mL (0.358-3.74) Physical Exam HEENT: Neck Supple W Full Motion Chest: Symmetric LUNGS: Clear to Auscultation Heart: S1S2, RRR (SR no ectopies) Abdomen: Soft N/T Extremities: No Calf Tenderness Neurology: alert, oriented, follow commands Assessment Assessment 1. Presyncope: precipitated by dehydration and orthostasis 2. Orthostasis: primarily from sitting to standing. 3. Hypertension; controlled 4. Diabetes, II; as per PCP 5. JINA; prerenal, improved 6. H/o PE and DVT; s/p IVC filter Recommendations 1. Continue to push PO fluids 2. Discussed plan significant to pt and spouse and agreeable to use mechanical compressions 3. Continue midodrine and will recheck orthostatic readings after application of abd binder and kemi hose 4. TTE. 5. Could potentially DC this afternoon if BP is adequate 6. Plan for outpt stress test for noted complains of intermittent TAM. SIVA HILLMAN MD 01/31/19 0659: CARDIO Progress Notes Assessment Assessment Patient seen and examined 01/30/19. Agree with AUTOMOTIVE [employer]ISION REPAIR INSTRUCTOR's assessment and plan. Near syncope secondary to dehydration, improved with IVF Continue midodrine for orthostasis Follow up in one month KAMALA GOLDMAN APRN Jan 30, 2019 11:50 SIVA HILLMAN MD Jan 31, 2019 06:59
--- NOTE | 2019-01-30 11:53 | EKG ---
[facility] [address] [place] [address] Test Date: 2019-01-30 Test Time: 11:37:57 Pat Name: ALVIN WYATT Department: Room: [facility] Gender: M Surgeon Chief: [place] : 1940 Requested By: KAMALA GOLDMAN Order Number: [id number] Reading MD: Measurements Intervals [place] Rate: 102 P: 42 UT: 190 QRS: 6 QRSD: 66 T: 62 QT: 312 QTc: 411 Interpretive Statements SINUS TACHYCARDIA QRS(T) CONTOUR ABNORMALITY CONSISTENT WITH INFERIOR INFARCT PROBABLY OLD ABNORMAL ECG RI6.01 Unconfirmed report No previous ECG available for comparison
[2019-01-30 13:03] VITALS: BP 121/86
[2019-01-30 13:05] VITALS: BP_SYST 109; BP_SYST 114; BP_DIAS 71; BP_DIAS 73
--- NOTE | 2019-01-30 15:35 | CARD ---
MR#: [id number] Date of Study: 01/30/2019 Ordering Physician: KAMALA GOLDMAN, Referring Physician: KAMALA GOLDMAN Tech: Miriam Pena GENARO APPROVED REPORT EXAM: Two-dimensional and M-mode echocardiogram with Doppler and color Doppler. Other Information Quality : Technically LimitedHR: 110bpm Rhythm : TachycardiaTechnically limited study due to body habitus & heart rate. INDICATION Hypotension 2D DIMENSIONS RVDd3.2 (2.9-3.5cm)Left Atrium(2D)2.8 (1.6-4.0cm) IVSd1.2 (0.7-1.1cm)Aortic Root(2D)3.2 (2.0-3.7cm) LVDd3.5 (3.9-5.9cm)LVOT Diameter2.3 (1.8-2.4cm) PWd1.0 (0.7-1.1cm)LVDs2.4 (2.5-4.0cm) FS (%) 31.3 %SV30.0 ml LVEF(%)60.2 (>50%) M-Mode DIMENSIONS Left Atrium(MM)3.34 (2.5-4.0cm)Aortic Root3.21 (2.2-3.7cm) Aortic Valve AoV Peak Lang.132.7cm/sAoV VTI23.5cm AO Peak GR.7.0mmHgLVOT Peak Lang.94.9cm/s AO Mean GR.5mmHgAVA (VMAX)2.92cm2 JOHN (VTI)2.90cm2 Mitral Valve MV E Bpiixhef86.4cm/sMV DECEL AVPD649pl MV A Qydlyoju14.3cm/sE/A Ratio0.5 Pulmonary Valve PV Peak Ytjnfuif49.7cm/s LEFT VENTRICLE The left ventricle cavity is small. Proximal septal thickening is noted. The left ventricular systoli c function is normal. The Ejection Fraction is 60-65%. There is normal LV segmental wall motion. Barnes smitral Doppler flow pattern is Grade I-abnormal relaxation pattern. RIGHT VENTRICLE The right ventricle is normal size. There is normal right ventricular wall thickness. The right ventr icular systolic function is normal. ATRIA The left atrium size is normal. The right atrium size is normal. The interatrial septum is intact wit h no evidence for an atrial septal defect or patent foramen ovale as noted on 2-D or Doppler imaging. AORTIC VALVE The aortic valve is probably trileaflet. The aortic valve is normal in structure and function. Dopple r and Color Flow revealed no significant aortic regurgitation. There is no significant aortic valvula r stenosis. MITRAL VALVE The mitral valve is normal in structure and function. There is no evidence of mitral valve prolapse. There is no mitral valve stenosis. Doppler and Color Flow revealed no mitral valve regurgitation note d. TRICUSPID VALVE The tricuspid valve is normal in structure and function. Doppler and Color Flow revealed no tricuspid valve regurgitation noted. There is no tricuspid valve prolapse or vegetation. There is no tricuspid valve stenosis. PULMONIC VALVE The pulmonic valve is not well visualized. GREAT VESSELS The aortic root is normal in size. The ascending aorta is normal in size. The IVC is normal in size a nd collapses >50% with inspiration. PERICARDIAL EFFUSION There is no evidence of significant pericardial effusion. Critical Notification Critical Value: No <Conclusion> The left ventricular systolic function is normal. The Ejection Fraction is 60-65%. There is normal LV segmental wall motion. Transmitral Doppler flow pattern is Grade I-abnormal relaxation pattern. There is no evidence of significant pericardial effusion. Signed by : Adrian Buckner, Electronically Approved : 01/30/2019 15:35:19
[2019-01-30 15:45] VITALS: BP 133/83
--- NOTE | 2019-01-30 16:46 | NUR ---
Discharge Note: ALVIN WYATT O6 [facility] Discharge instructions and discharge home medications reviewed with Patient and a copy given. All questions have been answered and understanding verbalized. The following instructions and handouts were given: orthostatic hypotension Discontinued lines and drains: Peripheral IV intact. Patient discharged to Home or Self Care with Spouse via Wheelchair Patient given an abdominal binder along with compression stocking, patient did not voice any concerns upon discharge. at bedside.
--- NOTE | 2019-01-30 19:47 | DS ---
DATE OF DISCHARGE: 01/30/2019 ADMISSION DIAGNOSES: Orthostatic hypotension. DISCHARGE DIAGNOSIS: Resolving orthostatic hypotension. HOSPITAL COURSE: The patient is a pleasant 78-year-old male who presented with orthostatic hypotension. He was admitted. We resumed his home meds and he was already on ProAmatine. We did consult Neurology, did some cardiac monitoring. This morning I saw him and examined him. Heart tones are normal. Lungs were clear. He is feeling great and wanted to go home. His ejection fraction is 55% on echo. His blood pressures were basically normal. We plan to discharge. I am going to continue his home ProAmatine. DISPOSITION: Home. ACTIVITY: As tolerated. DIET: Regular. MEDICATIONS: Please see the MRAD. TOTAL TIME: 35 minutes. SHANDA COULTER DO DR: LUDWIG/amy JOB#: [id number] / [id number]
[2019-01-30] MEDS ORDERED: ORPH100T PO (21:28)
[2019-01-30] MEDS ORDERED: PRED20TA PO (22:46)
[2019-01-31] MEDS ORDERED: THIAMINE 100 MG TABLET. PO SCH (09:00)
== END 2019-01-30 16:48 | disposition home or self-care (01) | DRG 312 ==
LOC: ER 20:02 → 6 SOUTH 21:53
PROVIDERS: ADMIT Internal Medicine; ATTEND Internal Medicine
DX: I95.1 Orthostatic hypotension (principal); N17.9 Acute kidney failure, unspecified; E86.0 Dehydration; E11.65 Type 2 diabetes mellitus with hyperglycemia; E83.42 Hypomagnesemia; F17.210 Nicotine dependence, cigarettes, uncomplicated; I10 Essential (primary) hypertension; I27.20 Pulmonary hypertension, unspecified; K21.9 Gastro-esophageal reflux disease without esophagitis; Z82.49 Family history of ischemic heart disease and other diseases of the circulatory system; Z95.828 Presence of other vascular implants and grafts; Z86.711 Personal history of pulmonary embolism; Z88.0 Allergy status to penicillin; Z88.2 Allergy status to sulfonamides; Z88.8 Allergy status to other drugs, medicaments and biological substances
CPT/HCPCS: 36415; 80053; 80307; 82962; 83735; 84443; 84484; 85025; 93005; 93306; J7030; 97116; 99285-25; G0378

== ENCOUNTER 2019-01-30 20:02 | Inpatient (IN) | payer OTHER ==
[~2019-01-30] VITALS: Ht 185.4 cm; Wt 92.1 kg
[~2019-01-30 20:02] MED LIST changes: +MIDO5TAB PO; +RANI-348 PO; +TRAZ-118 PO
--- NOTE | 2019-01-30 21:09 | PHYS DOC ---
Past Medical History Past Medical History: Hypotension Additional Past Medical Histor: pulmonary embolism, orthostatic hypotention. Past Surgical History: Other Additional Past Surgical Histo: vasectomy Additional Information: Nonsmoker Alcohol Use: Rarely Drug Use: None Adult General Chief Complaint Chief Complaint: HIP PAIN HPI HPI Mr. Nicholas is a pleasant 78yo M w/ PMH significant for arthritis and orthostatic hypotension presents with progressively worsening b/l hip pain that began this evening approximately an hour prior to presentation. He took 1000 MG of Tylenol which eliminated left hip pain but continues to complain of right hip pain. No radiation of pain. Pain is sharp, shooting, and constant. States he is unable to climb the stairs at home due to the pain but currently denies any increase of pain on ambulation. He has never experienced anything similar in the past. Denies recent or long-term steroid use. Hospitalized on Sunday for symptomatic orthostatic hypotension and discharged this AM. Family concerned that patient was discharged too early. Patient reports he just feels weak. Denies fever/chills. Denies trauma. Denies swelling. Review of Systems Review of Systems Constitutional: Denies fever or chills Eyes: Denies redness or eye pain HENT: Denies nasal congestion or sore throat Respiratory: Denies cough or shortness of breath Cardiovascular: Denies chest pain or palpitations GI: Denies abdominal pain, nausea, or vomiting : Denies dysuria or hematuria Musculoskeletal: Reports right hip pain. Denies back pain or other joint pain Integument: Denies rash or skin lesions Neurologic: Denies headache, focal weakness or sensory changes Complete systems were reviewed and found to be within normal limits, except as documented in this note. Current Medications Current Medications Current Medications Medications (Trade) Dose Ordered Sig/Bisi Start Time Stop Time Status Last Admin Dose Admin Dexamethasone (Decadron) 10 mg 1X ONCE 01/30/19 21:30 01/30/19 21:31 DC 01/30/19 21:23 10 MG Ondansetron HCl (Zofran) 4 mg PRN Q8HRS PRN 01/30/19 23:00 01/31/19 22:59 Orphenadrine Citrate (Norflex) 60 mg 1X ONCE 01/30/19 21:30 01/30/19 21:31 DC 01/30/19 21:23 60 MG Allergies Allergies Allergies Coded Allergies Type Severity Reaction Last Updated Verified Sulfa (Sulfonamide Antibiotics) Allergy Severe 06/06/17 Yes Penicillins Allergy Intermediate Rash 06/06/17 Yes codeine Adverse Reaction Intermediate Nausea and Vomiting 06/06/17 Yes procaine Adverse Reaction Mild Nausea and Vomiting 06/11/17 Yes Physical Exam Physical Exam Constitutional: Conversational, well developed, well nourished, no acute distress, non-toxic appearance HENT: Normocephalic, atraumatic, oropharynx dry Eyes: PERRL, EOMI, conjunctiva normal, no discharge Neck: Normal range of motion, no tenderness, supple Cardiovascular: Heart rate normal, regular rhythm w/o gallops, rubs, or murmurs. UE radial pulse intact 2/4 b/l Lungs & Thorax: Bilateral breath sounds clear to auscultation, no wheezing Abdomen: Soft, no tenderness, non-distended; pelvis stable and nontender Skin: Warm, dry, no erythema, no rash Back: No tenderness, no CVA tenderness Extremities: ROM intact, no edema, right lateral hip point tenderness worse with palpation and on ROM Neurologic: Alert and oriented X 3, normal motor function, normal sensory function, no focal deficits noted Psychologic: Affect normal, judgement normal Current Patient Data Vital Signs Vital Signs Date Time Temp Pulse Resp B/P (MAP) Pulse Ox O2 Delivery O2 Flow Rate FiO2 01/30/19 22:19 102 155/116 (129) 98 Room Air 01/30/19 21:19 16 01/30/19 20:10 97.4 97.4 Lab Values Laboratory Tests Test 01/30/19 20:05 01/30/19 21:51 White Blood Count 8.7 x10^3/uL (4.0-11.0) Red Blood Count 3.68 x10^6/uL (4.30-5.70) L Hemoglobin 13.2 g/dL (13.0-17.5) Hematocrit 39.0 % (39.0-53.0) Mean Corpuscular Volume 106 fL (79-100) H Mean Corpuscular Hemoglobin 36 pg (25-35) H Mean Corpuscular Hemoglobin Concent 34 g/dL (31-37) Red Cell Distribution Width 15.2 % (11.5-14.5) H Platelet Count 154 x10^3/uL (140-400) Neutrophils (%) (Auto) 75 % (31-73) H Lymphocytes (%) (Auto) 15 % (24-48) L Monocytes (%) (Auto) 9 % (0-9) Eosinophils (%) (Auto) 1 % (0-3) Basophils (%) (Auto) 0 % (0-3) Neutrophils # (Auto) 6.5 x10^3/uL (1.8-7.7) Lymphocytes # (Auto) 1.3 x10^3/uL (1.0-4.8) Monocytes # (Auto) 0.8 x10^3/uL (0.0-1.1) Eosinophils # (Auto) 0.1 x10^3/uL (0.0-0.7) Basophils # (Auto) 0.0 x10^3/uL (0.0-0.2) Sodium Level 137 mmol/L (136-145) Potassium Level 4.4 mmol/L (3.5-5.1) Chloride Level 99 mmol/L (98-107) Carbon Dioxide Level 22 mmol/L (21-32) Anion Gap 16 (6-14) H Blood Urea Nitrogen 45 mg/dL (8-26) H Creatinine 2.4 mg/dL (0.7-1.3) H Estimated GFR (Cockcroft-Gault) 26.4 BUN/Creatinine Ratio 19 (6-20) Glucose Level 219 mg/dL (70-99) H Calcium Level 9.5 mg/dL (8.5-10.1) Magnesium Level 2.0 mg/dL (1.8-2.4) Total Bilirubin 1.1 mg/dL (0.2-1.0) H Aspartate Amino Transferase (AST) 26 U/L (15-37) Alanine Aminotransferase (ALT) 28 U/L (16-63) Alkaline Phosphatase 25 U/L (46-116) L Creatine Kinase 205 U/L (39-308) Creatine Kinase MB (Mass) 4.0 ng/mL (0.0-3.6) H Creatine Kinase MB Relative Index 2.0 % (0-4) Troponin I Quantitative < 0.017 ng/mL (0.000-0.055) Total Protein 8.1 g/dL (6.4-8.2) Albumin 4.3 g/dL (3.4-5.0) Albumin/Globulin Ratio 1.1 (1.0-1.7) Glucose (Fingerstick) 160 mg/dL (70-99) H Laboratory Tests 01/30/19 20:05 Laboratory Tests 01/30/19 20:05 EKG EKG EKG obtained @ 2010 and read @ 2019. Sinus tachycardia w/o ST-elevation changes noted. 109 BPM.[] Radiology/Procedures Radiology/Procedures PROCEDURE: HIP RIGHT 2V WITH PELVIS Exam: Right hip 2 views INDICATION: Right hip pain for one week, no injury TECHNIQUE: Frontal view of the pelvis with frontal and lateral views of the right hip Comparisons: None FINDINGS: Bone mineralization is normal. No acute or healed fractures. Soft tissues are unremarkable. Medial joint space narrowing at the hip joints bilaterally, greater on the left with marginal osteophytosis. IMPRESSION: No acute osseous abnormality. 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 Electronically signed by: Megan Carroll MD (01/30/2019 9:44 PM) [facility] Course & Med Decision Making Course & Med Decision Making Pertinent Labs and Imaging studies reviewed. (See chart for details) Patient presented w/ right hip pain. Right hip and pelvis x-ray revealed significant degenerative changes. Symptomatic treatment provided with IM Norflex and PO steroid. Patient unable to ambulate in department with walker. Upon standing patient's blood pressure significantly dropped. Feel patient unsafe for discharge home. Labs obtained and posted to chart. Creatinine elevated from prior. EKG stable. Gentle IVF hydration given. Patient requiring admission for further evaluation and treatment and possible skilled rehab admission. Discussed with Dr. Young (hospitalist) who is in agreement with admission. Discussed findings and plan with patient and family, who acknowledge understanding and agreement. Dragon Disclaimer Dragon Disclaimer This electronic medical record was generated, in whole or in part, using a voice recognition dictation system. Departure Departure Impression: Primary Impression: Generalized weakness Additional Impressions: Hip pain Arthritis Orthostatic hypotension Unable to ambulate Acute on chronic renal insufficiency Disposition: ADMITTED INPATIENT Admitting Physician: HORACE (Hector) Condition: STABLE Referrals: REJI KHANNA MD (PCP) Problem Qualifiers Additional Impressions: Hip pain Laterality: right Qualified Codes: M25.551 - Pain in right hip ALVIN BENSON DO Jan 30, 2019 21:09
[2019-01-30] MEDS ORDERED: ORPH100T PO (21:28)
[2019-01-30] MEDS ORDERED: ORPHENADRINE CITRATE 60 MG/2 ML VIAL. IM ONE (21:30)
[2019-01-30] MEDS ORDERED: DEXAMETHASONE 4 MG TABLET PO ONE (21:30)
--- NOTE | 2019-01-30 21:47 | RAD ---
Exam: Right hip 2 views INDICATION: Right hip pain for one week, no injury TECHNIQUE: Frontal view of the pelvis with frontal and lateral views of the right hip Comparisons: None FINDINGS: Bone mineralization is normal. No acute or healed fractures. Soft tissues are unremarkable. Medial joint space narrowing at the hip joints bilaterally, greater on the left with marginal osteophytosis. IMPRESSION: No acute osseous abnormality. 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 Electronically signed by: Megan Carroll MD (01/30/2019 9:44 PM) [facility]
[2019-01-30] MEDS ORDERED: PRED20TA PO (22:46)
[2019-01-30] MEDS ORDERED: ONDANSETRON PF 4 MG/2 ML VIAL. IV PRN (23:00)
[2019-01-30 23:06] LABS: BASO % 0 % (0-3); EOS # 0.1 x10^3/uL (0.0-0.7); EOS % 1 % (0-3); HEMOGLOBIN 13.2 g/dL (13.0-17.5); LYMPH # 1.3 x10^3/uL (1.0-4.8); LYMPH % 15 % (24-48); MEAN CORPUSCULAR HEMOGLOBIN 36 pg (25-35); MEAN CORPUSCULAR HGB CONC 34 g/dL (31-37); MEAN CORPUSCULAR VOLUME 106 fL (79-100); MONO # 0.8 x10^3/uL (0.0-1.1); MONO % 9 % (0-9); NEUT # 6.5 x10^3/uL (1.8-7.7); NEUT % 75 % (31-73); PLATELET COUNT 154 x10^3/uL (140-400); RED BLOOD COUNT 3.68 x10^6/uL (4.30-5.70); RED CELL DISTRIBUTION WIDTH 15.2 % (11.5-14.5); WHITE BLOOD COUNT 8.7 x10^3/uL (4.0-11.0)
[2019-01-30 23:18] LABS: CALCIUM 9.5 mg/dL (8.5-10.1); CREATININE 2.4 mg/dL (0.7-1.3); GFR 26.4; POTASSIUM 4.4 mmol/L (3.5-5.1)
[2019-01-30 23:24] LABS: ALBUMIN 4.3 g/dL (3.4-5.0); ALBUMIN/GLOBULIN RATIO 1.1 (1.0-1.7); TOTAL BILIRUBIN 1.1 mg/dL (0.2-1.0); TOTAL PROTEIN 8.1 g/dL (6.4-8.2)
[2019-01-31] VITALS (7 sets, daily range): BP systolic 79–153; BP diastolic 49–87
[2019-01-31] MEDS ORDERED: IV NORMAL SALINE 1000ML BAG 1,000 ML IV ONE (00:15)
[2019-01-31] MEDS ORDERED: oxyCODONE/APAP 5/325 1 TAB TABLET PO PRN (01:00)
[2019-01-31] MEDS ORDERED: ACETAMINOPHEN 325 MG TABLET. PO PRN (01:15)
[2019-01-31] MEDS ORDERED: traZODone 50 MG TABLET. PO ONE (01:30)
--- NOTE | 2019-01-31 07:40 | EKG ---
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
[2019-01-31] MEDS ORDERED: MIDODRINE 5 MG TABLET PO SCH (08:00)
[2019-01-31] MEDS ORDERED: FAMOTIDINE 20 MG TABLET. PO PRN (09:00)
[2019-01-31] MEDS: ACETAMINOPHEN 500 MG TABLET PO PRN ×2 (10:19→20:10)
--- NOTE | 2019-01-31 11:57 | NUR ---
SW consulted for dc planning. Chart reviewed and pt was just discharged home yesterday. OT recommends SNU, PT pending. Will await for PT and Physician note.
[2019-01-31] MEDS: MIDODRINE 5 MG TABLET PO SCH ×2 (12:39→17:14)
--- NOTE | 2019-01-31 12:53 | HP ---
ADMIT DATE: CHIEF COMPLAINT: Weakness. HISTORY OF PRESENT ILLNESS: The patient is a pleasant middle-aged male who we just discharged yesterday. He had orthostatic hypotension. We did place him on ProAmatine and sent him home. He was doing well when I saw him, but apparently when he got home, he started having hip pain. His sent him to the hospital. He states he is here for hip pain, although he did have some orthostasis as well when he arrived. PAST MEDICAL HISTORY: Orthostasis, pulmonary embolism, vasectomy. ALLERGIES: PENICILLIN, SULFA, CODEINE, AND PROCAINE. FAMILY HISTORY: Coronary artery disease. SOCIAL HISTORY: Does not drink, smoke or take drugs. MEDICATIONS: Reviewed, please refer to the MRAD. REVIEW OF SYSTEMS: GENERAL: No history of weight change, weakness or fevers. SKIN: No bruising, hair changes or rashes. EYES: No blurred, double or loss of vision. NOSE AND THROAT: No history of nosebleeds, hoarseness or sore throat. HEART: No history of palpitations, chest pain or shortness of breath on exertion. LUNGS: Denies cough, hemoptysis, wheezing or shortness of breath. GASTROINTESTINAL: Denies changes in appetite, nausea, vomiting, diarrhea or constipation. GENITOURINARY: No history of frequency, urgency, hesitancy or nocturia. NEUROLOGIC: He complains of dizziness when he stands. PSYCHIATRIC: No history of panic, anxiety or depression. ENDOCRINE: No history of heat or cold intolerance, polyuria or polydipsia. EXTREMITIES: He complains of left hip pain. LABORATORY DATA: White count 8.7, hemoglobin 13.2, platelets 154. Troponin is 0. ASSESSMENT AND PLAN: 1. Hip pain and orthostasis. We will consult Orthopedics. IV fluids. We will increase his ProAmatine to 10 mg p.o. b.i.d., was only on 5. 2. PT, OT, DVT prophylaxis. 3. Full code. SHANDA COULTER DO DR: LUDWIG/amy JOB#: [id number] / [id number]
[2019-01-31] MEDS: IV NORMAL SALINE 1000ML BAG 1,000 ML IV SCH (14:14)
--- NOTE | 2019-01-31 14:33 | PDOC2 ---
NEUROLOGY CONSULT Date of Admission Date of Admission DATE: 01/31/19 TIME: 14:17 Reason for Consult Reason for Consult: IMPRESSION: LE weakness and numbness. Back pain. Hip pain. Orthostatic hypotension. Renal failure. DM. PE, Hx. C2 fracture in 2018. Alcohol use/abuse x 50 years. RECOMMENDATIONS/PLAN: L-spine MRI. Lab: see orders. Vit B1 100 mg daily. Neurontin if sensory symptoms recurs. Treat medical and orthopedic diseases. OT/PT. Patient education for alcohol abstinence. Discussed with his at bedside on 01/31/19. HISTORY OF THE PRESENT ILLNESS: This is a 78-year-old male patient who was just discharged yesterday. He had orthostatic hypotension and was on ProAmatine to go home. When he got home, he started having hip pain. His brought him back to the to hospital today. He stated he has pain in bilateral hip and back, and also has symptoms of numbness and weakness in LE. No falls. No urinary or bowel dysfunction. PAST MEDICAL HISTORY: Orthostasis, pulmonary embolism, vasectomy. ALLERGIES: PENICILLIN, SULFA, CODEINE, AND PROCAINE. FAMILY HISTORY: Coronary artery disease. MEDICATIONS: Refer to [facility] SOCIAL HISTORY: Lives with his at home. Denies current smoking and illicit drug use. He has been drinking 4-6 OZ of 40% alcohol a day for 50 years. REVIEW OF SYSTEMS: Constitutional: No malnutrition, weight loss, cachexia. Head: No traumatic brain or head injury. Skin: No edema, or rash. Ear: No infection. Eyes: No vision loss or color blindness. Nose: No bleeding or purulent discharges. Hearing: Hearing decrease. Neck: C1 fracture in 2018. Cardiac: No WI, arrhythmia. Pulmonary: PE. GI: No GI ulcer, GI bleeding. Urinary/genital: Renal failure. Endocrinologic: Diabetes Mellitus. Skeletomuscular: LE weakness. Neurological: see HP. Psychiatric: Alcohol use/abuse. Otherwise, not [id number] review of systems. PHYSICAL EXAMINATION: General appearance is in subacute distress. HEENT: Normocephalic and nontraumatic. Eyes, nose, ears, and throat are unremarkable. Neck is supple. No lymphadenopathy. No crepitus. Cardiovascular: S1, S2, regular rate and rhythm. Pulmonary: Clear to auscultation bilaterally. Abdomen: Bowel sounds are positive. Extremities: No rash, lesions, or edema. No restriction of range of motion NEUROLOGICAL EXAMINATION: Alert Oriented to time, place and person. PERRL. EOMI. CN: no focal findings. Muscle tone: within normal. Muscle strength: 5 DTR: 2 UE, 0-1 at knee. Plantar reflex: Flexor response bilaterally Gait: not examined in chair Sensory exam: no abnormal findings. No cerebellar signs elicited. F-T-N test fine. Current Medications Current Medications Current Medications Orphenadrine Citrate (Norflex) 60 mg 1X ONCE IM Last administered on 01/30/19at 21:23; Start 01/30/19 at 21:30; Stop 01/30/19 at 21:31; Status DC Dexamethasone (Decadron) 10 mg 1X ONCE PO Last administered on 01/30/19at 21:23; Start 01/30/19 at 21:30; Stop 01/30/19 at 21:31; Status DC Ondansetron HCl (Zofran) 4 mg PRN Q8HRS PRN IV NAUSEA/VOMITING 1ST CHOICE Last administered on 01/31/19at 02:37; Start 01/30/19 at 23:00; Stop 01/31/19 at 22:59 Sodium Chloride 1,000 ml @ 100 mls/hr 1X ONCE IV Last administered on 01/31/19 at 01:17; Start 01/31/19 at 00:15; Stop 01/31/19 at 10:14; Status DC Oxycodone/ Acetaminophen (Percocet 5/325) 1 tab PRN Q4HRS PRN PO SEVERE PAIN 7- 10; Start 01/31/19 at 01:00 Acetaminophen (Tylenol) 650 mg PRN Q6HRS PRN PO MILD PAIN / TEMP Last adminis tered on 01/31/19at 01:30; Start 01/31/19 at 01:15; Stop 01/31/19 at 10:13; Status DC Midodrine (Proamatine) 5 mg TIDWMEALS PO Last administered on 01/31/19at 10:13; Start 01/31/19 at 08:00; Stop 01/31/19 at 10:13; Status DC Trazodone HCl (Desyrel) 50 mg HS PO ; Start 01/31/19 at 21:00 Famotidine (Pepcid) 20 mg PRN DAILY PRN PO HEARTBURN / GAS; Start 01/31/19 at 09:00 Trazodone HCl (Desyrel) 50 mg 1X ONCE PO Last administered on 01/31/19at 01:30; Start 01/31/19 at 01:30; Stop 01/31/19 at 01:31; Status DC Midodrine (Proamatine) 10 mg TIDWMEALS PO Last administered on 01/31/19at 12:39; Start 01/31/19 at 12:00 Acetaminophen (Tylenol) 500 mg PRN Q6HRS PRN PO MILD PAIN / TEMP Last administered on 01/31/19at 10:19; Start 01/31/19 at 10:00 Sodium Chloride 1,000 ml @ 100 mls/hr Q10H IV Last administered on 01/31/19at 14:14; Start 01/31/19 at 13:30 Active Scripts Active Tylenol (Acetaminophen) 325 Mg Tablet 650 Mg PO PRN Q6HRS PRN Reported Midodrine Hcl 5 Mg Tablet 5 Mg PO TID Ranitidine Hcl 75 Mg Tablet 75 Mg PO PRN PRN Trazodone Hcl 50 Mg Tablet 50 Mg PO HS Allergies Allergies: Allergies Coded Allergies Type Severity Reaction Last Updated Verified Sulfa (Sulfonamide Antibiotics) Allergy Severe 06/06/17 Yes Penicillins Allergy Intermediate Rash 06/06/17 Yes codeine Adverse Reaction Intermediate Nausea and Vomiting 06/06/17 Yes procaine Adverse Reaction Mild Nausea and Vomiting 06/11/17 Yes ROS Review of System The patient denies any associated fevers, chills, headache, ear pain, rhinorrhea, sore throat, stiff neck, productive cough, chest pain, shortness of breath, back or flank pain, abdominal pain, nausea, vomiting, diarrhea, constipation, dysuria, rash, numbness, weakness, tingling, incontinence, difficulty ambulating, or diaphoresis. Physical Exam Physical Exam General: Well developed, well nourished, no acute distress, well appearing HEENT: Pupils equally round and reactive to light, EOMI, no discharge, normal conjunctiva Neck: Supple, no nuchal rigidity, no JVD, trachea midline, no tenderness Cardiac: RRR, no murmurs, no gallops, no rubs Chest/Lungs: CTAB, no wheeze, no rhonchi, no crackles Abdomen: soft, non-distended, no guarding, no peritoneal signs, non-tender Back: No tenderness Extremities: no edema, pulses intact, non-tender,capillary refill <3 sec bilateral upper and lower extremities, Neuro: Alert and oriented x 4, no focal deficits, normal speech Vitals Vitals: Vital Signs Date Time Temp Pulse Resp B/P (MAP) Pulse Ox O2 Delivery O2 Flow Rate FiO2 01/31/19 12:39 97 153/85 01/31/19 11:37 98.1 18 99 Room Air 98.1 Labs Labs Laboratory Tests Test 01/30/19 20:05 01/30/19 21:51 01/31/19 02:00 01/31/19 05:10 White Blood Count 8.7 x10^3/uL (4.0-11.0) Red Blood Count 3.68 x10^6/uL (4.30-5.70) Hemoglobin 13.2 g/dL (13.0-17.5) Hematocrit 39.0 % (39.0-53.0) Mean Corpuscular Volume 106 fL (79-100) Mean Corpuscular Hemoglobin 36 pg (25-35) Mean Corpuscular Hemoglobin Concent 34 g/dL (31-37) Red Cell Distribution Width 15.2 % (11.5-14.5) Platelet Count 154 x10^3/uL (140-400) Neutrophils (%) (Auto) 75 % (31-73) Lymphocytes (%) (Auto) 15 % (24-48) Monocytes (%) (Auto) 9 % (0-9) Eosinophils (%) (Auto) 1 % (0-3) Basophils (%) (Auto) 0 % (0-3) Neutrophils # (Auto) 6.5 x10^3/uL (1.8-7.7) Lymphocytes # (Auto) 1.3 x10^3/uL (1.0-4.8) Monocytes # (Auto) 0.8 x10^3/uL (0.0-1.1) Eosinophils # (Auto) 0.1 x10^3/uL (0.0-0.7) Basophils # (Auto) 0.0 x10^3/uL (0.0-0.2) Sodium Level 137 mmol/L (136-145) Potassium Level 4.4 mmol/L (3.5-5.1) Chloride Level 99 mmol/L (98-107) Carbon Dioxide Level 22 mmol/L (21-32) Anion Gap 16 (6-14) Blood Urea Nitrogen 45 mg/dL (8-26) Creatinine 2.4 mg/dL (0.7-1.3) Estimated GFR (Cockcroft-Gault) 26.4 BUN/Creatinine Ratio 19 (6-20) Glucose Level 219 mg/dL (70-99) Calcium Level 9.5 mg/dL (8.5-10.1) Magnesium Level 2.0 mg/dL (1.8-2.4) Total Bilirubin 1.1 mg/dL (0.2-1.0) Aspartate Amino Transf (AST/SGOT) 26 U/L (15-37) Alanine Aminotransferase (ALT/SGPT) 28 U/L (16-63) Alkaline Phosphatase 25 U/L (46-116) Creatine Kinase 205 U/L (39-308) Creatine Kinase MB (Mass) 4.0 ng/mL (0.0-3.6) Creatine Kinase MB Relative Index 2.0 % (0-4) Troponin I Quantitative < 0.017 ng/mL (0.000-0.055) < 0.017 ng/mL (0.000-0.055) < 0.017 ng/mL (0.000-0.055) Total Protein 8.1 g/dL (6.4-8.2) Albumin 4.3 g/dL (3.4-5.0) Albumin/Globulin Ratio 1.1 (1.0-1.7) Glucose (Fingerstick) 160 mg/dL (70-99) Laboratory Tests Test 01/30/19 20:05 01/30/19 21:51 01/31/19 02:00 01/31/19 05:10 White Blood Count 8.7 x10^3/uL (4.0-11.0) Red Blood Count 3.68 x10^6/uL (4.30-5.70) Hemoglobin 13.2 g/dL (13.0-17.5) Hematocrit 39.0 % (39.0-53.0) Mean Corpuscular Volume 106 fL (79-100) Mean Corpuscular Hemoglobin 36 pg (25-35) Mean Corpuscular Hemoglobin Concent 34 g/dL (31-37) Red Cell Distribution Width 15.2 % (11.5-14.5) Platelet Count 154 x10^3/uL (140-400) Neutrophils (%) (Auto) 75 % (31-73) Lymphocytes (%) (Auto) 15 % (24-48) Monocytes (%) (Auto) 9 % (0-9) Eosinophils (%) (Auto) 1 % (0-3) Basophils (%) (Auto) 0 % (0-3) Neutrophils # (Auto) 6.5 x10^3/uL (1.8-7.7) Lymphocytes # (Auto) 1.3 x10^3/uL (1.0-4.8) Monocytes # (Auto) 0.8 x10^3/uL (0.0-1.1) Eosinophils # (Auto) 0.1 x10^3/uL (0.0-0.7) Basophils # (Auto) 0.0 x10^3/uL (0.0-0.2) Sodium Level 137 mmol/L (136-145) Potassium Level 4.4 mmol/L (3.5-5.1) Chloride Level 99 mmol/L (98-107) Carbon Dioxide Level 22 mmol/L (21-32) Anion Gap 16 (6-14) Blood Urea Nitrogen 45 mg/dL (8-26) Creatinine 2.4 mg/dL (0.7-1.3) Estimated GFR (Cockcroft-Gault) 26.4 BUN/Creatinine Ratio 19 (6-20) Glucose Level 219 mg/dL (70-99) Calcium Level 9.5 mg/dL (8.5-10.1) Magnesium Level 2.0 mg/dL (1.8-2.4) Total Bilirubin 1.1 mg/dL (0.2-1.0) Aspartate Amino Transf (AST/SGOT) 26 U/L (15-37) Alanine Aminotransferase (ALT/SGPT) 28 U/L (16-63) Alkaline Phosphatase 25 U/L (46-116) Creatine Kinase 205 U/L (39-308) Creatine Kinase MB (Mass) 4.0 ng/mL (0.0-3.6) Creatine Kinase MB Relative Index 2.0 % (0-4) Troponin I Quantitative < 0.017 ng/mL (0.000-0.055) < 0.017 ng/mL (0.000-0.055) < 0.017 ng/mL (0.000-0.055) Total Protein 8.1 g/dL (6.4-8.2) Albumin 4.3 g/dL (3.4-5.0) Albumin/Globulin Ratio 1.1 (1.0-1.7) Glucose (Fingerstick) 160 mg/dL (70-99) PEG TO MD Jan 31, 2019 14:33
--- NOTE | 2019-01-31 14:41 | RAD ---
MRI of the lumbar spine without contrast 01/31/2019 CLINICAL HISTORY: Low back pain. Weakness. TECHNIQUE: Unenhanced T1-weighted and T2-weighted sagittal and axial and inversion recovery sagittal images of the lumbar spine were obtained. FINDINGS: Mild S-shaped curvature of the thoracolumbar spine is seen. Degenerative signal changes are seen involving all of the disks of the lumbar spine. Degenerative signal changes are seen within the marrow surrounding these discs. The conus medullaris is normal morphology, position, and signal characteristics. A 1.8 cm rounded high signal intensity lesion is seen involving the midpole of the right kidney on the T2-weighted images.. This likely represents a cyst. The L1-2 disc space is within normal limits. At the L2-3 disc space there is a mild generalized disc bulge. Degenerative changes are seen involving the facet joints bilaterally. There is mild ligamentum flavum hypertrophy bilaterally. There are small facet joint effusions. There is prominence of the posterior epidural fat. These findings when combined result in mild central spinal canal stenosis. No neural foraminal stenosis is seen. At the L3-4 disc space there is a mild to moderate generalized disc bulge. Degenerative changes are seen involving the facet joints bilaterally. There is moderate ligamentum flavum hypertrophy bilaterally. There are small facet joint effusions, right greater than left. There is prominence of the posterior epidural fat. These findings when combined result in moderate to severe central spinal canal stenosis. Mild bilateral neural foraminal stenosis is seen. At the L4-5 disc space there is a mild to moderate generalized disc bulge. This is eccentric to the left. Degenerative changes are seen involving the facet joints bilaterally. Small facet joint effusions are seen bilaterally. There is moderate ligamentum flavum hypertrophy bilaterally. Prominence of the posterior epidural fat is seen. These findings when combined result in moderate to severe central spinal canal stenosis. Mild left neural foraminal stenosis is seen. The right neural foramen is patent. At the L5-S1 disc space there is a mild generalized disc bulge. Degenerative changes are seen involving the facet joints bilaterally. There is mild ligamentum flavum hypertrophy bilaterally. These findings when combined result in mild central spinal canal stenosis. No neural foraminal stenosis is seen. IMPRESSION: The changes of degenerative disc disease are seen throughout the lumbar spine. These findings result in mild central spinal canal stenosis at L2-3 and moderate to severe central spinal canal stenosis at L3-4 and L4-5. Mild bilateral neural foraminal stenosis is seen at L3-4. Mild left neural foraminal stenosis is seen at L4-5. Electronically signed by: Leroy Guajardo MD (01/31/2019 2:39 PM) [facility]
[2019-01-31] MEDS: THIAMINE 100 MG TABLET. PO SCH (14:55)
--- NOTE | 2019-01-31 16:02 | NUR ---
[facility] following pt. PT/OT recommends SNU. Spoke with pt and family extensively about SNU, options and insurance coverage. Pt is interested at [facility] and family will also go visit [facility]. Referral faxed to both facilities. Pt admission and acceptance pending. Will continue to follow.
[2019-01-31] MEDS: traZODone 50 MG TABLET. PO SCH (20:10)
--- NOTE | 2019-02-01 00:36 | CONS ---
DATE OF CONSULTATION: 01/31/2019 PHYSICIAN REQUESTING CONSULTATION: Dr. De La Torre. REASON FOR CONSULTATION: Left hip pain. HISTORY OF PRESENT ILLNESS: The patient is a 78-year-old male who had a couple of recent hospital admissions, the last of which was for orthostatic hypotension and indicates that he had been discharged for that and was previously lying down and sitting quite a bit and then had before his discharge from the hospital significant amount of walking and negotiating stairs to make sure he was safe to go home and developed pain over the lateral aspect of his hip, left side a bit worse than right and a lot of tenderness on palpation that subsequently now resolved in the hospital when he was given Tylenol. He really does not have any significant hip pain at the present time. PAST MEDICAL HISTORY: Significant for pulmonary embolism and the recent orthostatic hypotension. PAST SURGICAL HISTORY: Vasectomy. MEDICATIONS: List is reviewed. ALLERGIES: INCLUDE PENICILLIN, SULFA, CODEINE. FAMILY HISTORY: Heart disease. SOCIAL HISTORY: Denies alcohol, smoking or drug use. REVIEW OF SYSTEMS: Significant for the hip pain, perhaps activity related. Any real weakness or dizziness problems have since resolved. He has no focal weakness, numbness, tingling and no joint pain, swelling, or radiating pain. He states that the hip pain was really over the lateral aspect of the hips and nonradiating in nature. PHYSICAL EXAMINATION: GENERAL: Pleasant, cooperative 78-year-old male. He has full range of motion. MUSCULOSKELETAL: Normal alignment, stability of bilateral hips, knees and ankles; only extremely minor tenderness over the trochanteric bursa area of both hips with intact motor function, distal pulses, sensation in both lower extremities throughout. IMAGING: X-rays show only minor degenerative changes at the hip joint. No evidence of any fracture or other bony abnormality. IMPRESSION: Trochanteric bursitis of the hips, now resolved only with Tylenol, possibly activity related. TREATMENT PLAN: We discussed the structure and function of the trochanteric bursa, the fact that hip joint pain itself is usually in the groin area and perhaps his pain was activity related as he had been much more sedentary up until the point where physical therapy worked with him and it is subsequently relieved with Tylenol. I do not think it is any structural ongoing issue. I had gone over with him the possibility of some ongoing stretching of the iliotibial band and if the situation worsens significantly, we could consider an injection in the trochanteric bursa. Although since he is having no pain at present, I would just have him stretch gently and advance activities as tolerated and report to me on an outpatient basis if he is having any increased symptoms despite that regimen. He agreed and appreciated the discussion. Follow up again can be outpatient basis with Orthopedics as necessary. VITA GIVENS MD DR: MENA/amy JOB#: [id number] / [id number]
[2019-02-01] MEDS: IV NORMAL SALINE 1000ML BAG 1,000 ML IV SCH (01:22)
[2019-02-01 03:05] VITALS: BP 140/65
[2019-02-01 07:46] VITALS: BP 121/68
[2019-02-01] MEDS: THIAMINE 100 MG TABLET. PO SCH (09:32)
[2019-02-01] MEDS: MIDODRINE 5 MG TABLET PO SCH ×3 (09:32→17:08)
[2019-02-01] MEDS: ACETAMINOPHEN 500 MG TABLET PO PRN ×2 (10:03→19:47)
--- NOTE | 2019-02-01 10:30 | NUR ---
Plan for discharge as follows: Pt being eval for SNU both at [facility] and [facility]. IV fluids stopped at this time. Pt eating and drinking well. Able to ambulate short distances with stand by assist and walker. Creat has varied from 1.4 to 2.4. and pt concerned about fluctuating labs. Reviewed with Dr De La Torre. Received orders for nephrology consult. also concerned about elevated blood sugars. Reports pt was on metformin at one time. Will continue to monitor.
[2019-02-01] MEDS ORDERED: MIDO10TA PO (10:41)
[2019-02-01 11:06] VITALS: BP 134/90
--- NOTE | 2019-02-01 12:27 | PDOC ---
[facility] [facility] PROGRESS NOTE Chief Complaint Chief Complaint Orthostatic hypotension Hip pain Prior hx of PE Vasectomy History of Present Illness History of Present Illness 02/01/19 Pt seen and examined (well-appearing and in no acute distress; BP remains stable) Chart reviewed VIELKA RN Vitals/I&O Vitals/I&O: Vital Signs Date Time Temp Pulse Resp B/P (MAP) Pulse Ox O2 Delivery O2 Flow Rate FiO2 02/01/19 11:06 97.7 101 18 134/90 (105) 100 Room Air 97.7 I & O 01/31/19 01/31/19 02/01/19 15:00 23:00 07:00 Intake Total 1000 ml 1750 ml Balance 1000 ml 1750 ml Physical Exam General: Alert, Oriented X3, Cooperative Heart: Regular rate, No murmurs Lungs: Clear Abdomen: Normal bowel sounds, No tenderness Extremities: No clubbing, No cyanosis Skin: No rashes, No breakdown, No significant lesion Labs Labs: Laboratory Tests Test 01/31/19 12:43 Erythrocyte Sedimentation Rate 29 (0-15) Vitamin B12 Level 478 pg/mL (247-911) Thyroid Stimulating Hormone (TSH) 0.892 uIU/mL (0.358-3.74) Review of Systems Review of Systems: No headache No fever/chills Assessment and Plan Assessmemt and Plan Problems Medical Problems: (1) Acute on chronic renal insufficiency Status: Acute (2) Arthritis Status: Acute (3) Bursitis Status: Acute (4) Hip pain Status: Acute (5) IT band syndrome Status: Acute (6) Unable to ambulate Status: Acute Assessment: Orthostatic hypotension Hip pain Prior hx of PE Vasectomy Plan: Pending D/C to SNU on Sunday Tylenol PRN Increased Midodrine dosage from 5 mg to 10 mg PT/OT Compression stockings Home meds Full code Comment Review of Relevant I have reviewed the following items chelsea (where applicable) has been applied. Medications: Current Medications Medications (Trade) Dose Ordered Sig/Bisi Route PRN Reason Start Time Stop Time Status Last Admin Dose Admin Trazodone HCl (Desyrel) 50 mg HS PO 01/31/19 21:00 01/31/19 20:10 Sodium Chloride 1,000 ml @ 100 mls/hr Q10H IV 01/31/19 13:30 02/01/19 11:00 DC 02/01/19 01:22 Thiamine Mononitrate (Vitamin B-1) 100 mg DAILY PO 01/31/19 15:00 02/01/19 09:33 SHANDA COULTER III DO Feb 01, 2019 12:27
[2019-02-01 14:26] LABS: ALBUMIN 4.4 g/dL (3.4-5.0); ALBUMIN/GLOBULIN RATIO 1.1 (1.0-1.7); CALCIUM 9.4 mg/dL (8.5-10.1); GFR 20.4; TOTAL BILIRUBIN 0.9 mg/dL (0.2-1.0); TOTAL PROTEIN 8.4 g/dL (6.4-8.2)
--- NOTE | 2019-02-01 14:57 | PDOC ---
PROGRESS NOTES Assessment Assessment LE weakness and numbness. Degenerative L-spine disease. Back pain. Hip pain. Orthostatic hypotension. Renal failure. DM. PE, Hx. C2 fracture in 2018. Alcohol use/abuse x 50 years. No evidence of L-spine radiculopathy this time. RECOMMENDATIONS/PLAN: Vit B1 100 mg daily. Neurontin if sensory symptoms recurs. Treat medical and orthopedic diseases. Consulted Dr. Medrano. OT/PT. Patient education for alcohol abstinence. Discussed with his at bedside on 02/01/19. HISTORY OF THE PRESENT ILLNESS: This is a 78-year-old male patient who was just discharged yesterday. He had orthostatic hypotension and was on ProAmatine to go home. When he got home, he started having hip pain. His brought him back to the to hospital today. He stated he has pain in bilateral hip and back, and also has symptoms of numbness and weakness in LE. No falls. No urinary or bowel dysfunction. He sttaed on 02/01/19 that no symptoms of numbness, tingling, burning or pain except chronic weakness in LE. PAST MEDICAL HISTORY: Orthostasis, pulmonary embolism, vasectomy. ALLERGIES: PENICILLIN, SULFA, CODEINE, AND PROCAINE. FAMILY HISTORY: Coronary artery disease. MEDICATIONS: Refer to [facility] SOCIAL HISTORY: Lives with his at home. Denies current smoking and illicit drug use. He has been drinking 4-6 OZ of 40% alcohol a day for 50 years. REVIEW OF SYSTEMS: Constitutional: No malnutrition, weight loss, cachexia. Head: No traumatic brain or head injury. Skin: No edema, or rash. Ear: No infection. Eyes: No vision loss or color blindness. Nose: No bleeding or purulent discharges. Hearing: Hearing decrease. Neck: C1 fracture in 2018. Cardiac: No AL, arrhythmia. Pulmonary: PE. GI: No GI ulcer, GI bleeding. Urinary/genital: Renal failure. Endocrinologic: Diabetes Mellitus. Skeletomuscular: LE weakness. Neurological: see HP. Psychiatric: Alcohol use/abuse. Otherwise, not [id number] review of systems. PHYSICAL EXAMINATION: General appearance is in subacute distress. HEENT: Normocephalic and nontraumatic. Eyes, nose, ears, and throat are unremarkable. Neck is supple. No lymphadenopathy. No crepitus. Cardiovascular: S1, S2, regular rate and rhythm. Pulmonary: Clear to auscultation bilaterally. Abdomen: Bowel sounds are positive. Extremities: No rash, lesions, or edema. No restriction of range of motion NEUROLOGICAL EXAMINATION: Alert Oriented to time, place and person. PERRL. EOMI. CN: no focal findings. Muscle tone: within normal. Muscle strength: 5 DTR: 2 UE, 0-1 at knee. Plantar reflex: Flexor response bilaterally Gait: Able to walk with assistance. Sensory exam: no abnormal findings. No cerebellar signs elicited. F-T-N test fine. Objective Objective Vital Signs Date Time Temp Pulse Resp B/P (MAP) Pulse Ox O2 Delivery O2 Flow Rate FiO2 02/01/19 12:43 101 134/90 02/01/19 11:06 97.7 18 100 Room Air 97.7 Intake and Output 02/01/19 07:00 Intake Total 2750 ml Balance 2750 ml Intake Oral 750 ml IV Total 2000 ml # Voids 1 Vitals Signs Vitals VS - Last 72 Hours, by Label Date Time Temp Pulse Resp B/P (MAP) Pulse Ox O2 Delivery O2 Flow Rate FiO2 02/01/19 12:43 101 134/90 02/01/19 11:06 97.7 101 18 134/90 (105) 100 Room Air 97.7 02/01/19 09:33 85 121/68 02/01/19 08:00 Room Air 02/01/19 07:46 97.9 85 17 121/68 (85) 99 Room Air 97.9 02/01/19 03:05 98.1 99 18 140/65 (90) 98 Room Air 98.1 01/31/19 23:05 97.7 105 18 130/87 (101) 99 Room Air 97.7 01/31/19 20:00 Room Air 01/31/19 19:05 97.8 95 18 139/83 (101) 99 Room Air 97.8 01/31/19 17:14 87 141/76 01/31/19 15:35 97.5 87 20 141/76 (97) 100 Room Air 97.5 01/31/19 12:39 97 153/85 01/31/19 11:37 98.1 97 18 153/85 (107) 99 Room Air 98.1 01/31/19 10:13 118 79/49 01/31/19 08:00 Room Air 01/31/19 07:00 97.5 118 18 79/49 (59) 99 Room Air 97.5 Laboratory Laboratory Laboratory Tests Test 02/01/19 13:20 Sodium Level 134 mmol/L (136-145) Potassium Level 5.0 mmol/L (3.5-5.1) Chloride Level 97 mmol/L (98-107) Carbon Dioxide Level 24 mmol/L (21-32) Anion Gap 13 (6-14) Blood Urea Nitrogen 73 mg/dL (8-26) Creatinine 3.0 mg/dL (0.7-1.3) Estimated GFR (Cockcroft-Gault) 20.4 BUN/Creatinine Ratio 24 (6-20) Glucose Level 185 mg/dL (70-99) Calcium Level 9.4 mg/dL (8.5-10.1) Total Bilirubin 0.9 mg/dL (0.2-1.0) Aspartate Amino Transf (AST/SGOT) 46 U/L (15-37) Alanine Aminotransferase (ALT/SGPT) 40 U/L (16-63) Alkaline Phosphatase 24 U/L (46-116) Total Protein 8.4 g/dL (6.4-8.2) Albumin 4.4 g/dL (3.4-5.0) Albumin/Globulin Ratio 1.1 (1.0-1.7) Medication Medications Current Medications Acetaminophen (Tylenol) 1,000 mg PRN Q6HRS PRN PO PAIN; Start 02/01/19 at 12:30 Thiamine Mononitrate (Vitamin B-1) 100 mg DAILY PO Last administered on 02/01/19at 09:33; Start 01/31/19 at 15:00 Trazodone HCl (Desyrel) 50 mg HS PO Last administered on 01/31/19at 20:10; Start 01/31/19 at 21:00 Comment Review of Relevant I have reviewed the following items chelsea (where applicable) has been applied. PEG TO MD Feb 01, 2019 14:57
[2019-02-01 15:20] VITALS: BP 151/81
--- NOTE | 2019-02-01 15:36 | NUR ---
Elevated glucose levels noted. Received orders for hgb A1C.
[2019-02-01 19:10] VITALS: BP 147/87
--- NOTE | 2019-02-01 21:18 | CONS ---
DATE OF CONSULTATION: 02/01/2019 ATTENDING PHYSICIAN: Dr. De La Torre. The patient was seen at the request of Dr. De La Torre for rehab evaluation. HISTORY OF PRESENT ILLNESS: This is a 78-year-old male. He was admitted on 01/31/2019, apparently was discharged to home on 01/30/2019. He had problems with orthostatic hypotension. He has been on ProAmatine and was discharged to home. He went home and started having pain. He continued to have orthostasis when he was seen in the Emergency Room. PAST MEDICAL HISTORY: Includes orthostasis, pulmonary embolism, and vasectomy. ALLERGIES: KNOWN ALLERGIC TO PENICILLIN, SULFA, CODEINE, AND PROCAINE. FAMILY HISTORY: Coronary artery disease. SOCIAL HISTORY: The patient is retired. RADIOGRAPHIC FINDINGS: The patient since admission had radiological studies, which revealed moderate to severe left and mild right-sided degenerative changes at his hip joints with narrowing of medial joint space and marginal osteophytes. MRI scan of his lumbar vertebrae revealed degenerative disk disease throughout the lumbar spine resulting in mild central spinal canal stenosis at L2-L3, moderate to severe central spinal canal stenosis at L3-L4 and L4-L5 and mild neural foraminal stenosis at L3-L4 bilaterally and also mild left neural foraminal stenosis at L4-L5. The patient denies any significant back pain or hip pain. The patient is eager to go home. PHYSICAL EXAMINATION: GENERAL: Today, revealed an elderly male. He is alert, oriented to time, place, person and circumstance and follows commands appropriately. EXTREMITIES: Moves all 4 extremities voluntarily where he had 4+/5 grade muscle strength and deep tendon reflexes are 1 to 2+ and symmetrical with absent ankle jerks and he had significant edema of his lower extremities. He had crepitus on range of motion of both knee joints with mild knee joint effusion. No significant pain on range of motion of hip joints. He had some localized tenderness to palpation over right sacroiliac joint area. No significant tenderness to palpation over trochanteric bursa area. He had equal perception of touch and pinprick sensation bilaterally. He is independent with bed mobility, transfers, and up walking using a roller walker without any loss of balance or dizziness complaint. ASSESSMENT: An elderly male with degenerative disk disease and degenerative joint disease of lumbar vertebrae with radiological evidence of lumbar spinal stenosis and neural foraminal stenosis, but no clinical evidence of lumbar spinal stenosis and also present with degenerative joint disease changes in the hip without any significant pain, degenerative joint disease of both knees without any pain at present time. Clinical evidence of peripheral neuropathy. The patient had significant lower extremity edema and is also having some orthostatic hypotension. RECOMMENDATIONS: I have reviewed with him a home program of physical modalities and stretching exercise to her lower back and proper body mechanics and isometric strengthening exercise to his lower extremity muscle groups, to consider injecting painful right sacroiliac joint area if the pain persists. Right now, he is not having that significant pain to consider any injections. I am more worried about his edema of his lower extremities. Home with outpatient followup when medically stable. Dr. Young and Dr. De La Torre, I appreciate for asking me to participate in the care of this interesting patient. I will be glad to follow him with you as needed for his rehabilitation. ZONIA WALKER MD DR: AUNG/amy JOB#: [id number] / [id number]
[2019-02-01] MEDS: traZODone 50 MG TABLET. PO SCH (22:08)
[2019-02-01 23:10] VITALS: BP 121/51
[2019-02-02 03:10] VITALS: BP 102/66
[2019-02-02 07:15] VITALS: BP 116/74
[2019-02-02] MEDS: THIAMINE 100 MG TABLET. PO SCH (08:06)
[2019-02-02] MEDS: MIDODRINE 5 MG TABLET PO SCH ×3 (08:16→17:22)
[2019-02-02 10:28] LABS: CALCIUM 8.8 mg/dL (8.5-10.1); CREATININE 2.6 mg/dL (0.7-1.3); GFR 24.1; POTASSIUM 4.6 mmol/L (3.5-5.1)
[2019-02-02 11:01] VITALS: BP 129/71
--- NOTE | 2019-02-02 12:25 | PDOC2 ---
CONSULT Date of Consult Date of Consult DATE: 02/02/19 TIME: 12:19 Reason for Consult Reason for Consult: JINA Referring Physician Referring Physician: MARYLIN Identification/Chief Complaint Chief Complaint LE WEAKNESS AND HIP PAIN Source Source: Chart review, Patient History of Present Illness Reason for Visit: THIS IS A 78 YR OLD PT WITH LE WEAKNESS, DX WITH L HIP BURSITIS. NO NSAIDS OR NEPHROTOXINS NOTED. NO HYPOTENSION CURRENTLY BUT HAS HAD A HX OF ORTHOSTASIS FOR WHICH HE WAS PLACED ON MIDODRINE AND D/POLI FROM HERE JUST A DAY AGO. NOW CR OF 3.0. HAS CKD STAGE 3 WITH BASELINE CR OF ABOUT 1.5-2.0. DENIED ANY PROBLEMS EMPTYING HIS BLADDER OR ANY OTHER HX. HAS HAD HX OF HTN IN THE PAST Past Medical History Cardiovascular: HTN, Other Pulmonary: No pertinent hx CENTRAL NERVOUS SYSTEM: Other GI: GERD Heme/Onc: Other Hepatobiliary: No pertinent hx Psych: No pertinent hx Musculoskeletal: Other Rheumatologic: No pertinent hx Infectious disease: No pertinent hx Renal/: Chronic renal insuff Endocrine: Diabetes Past Surgical History Past Surgical History: Other Family History Family History: No Significant, Other Social History ALCOHOL: heavy Drugs: None Lives: with Family Current Problem List Problem List Problems Medical Problems: (1) Acute on chronic renal insufficiency Status: Acute (2) Arthritis Status: Acute (3) Bursitis Status: Acute (4) Hip pain Status: Acute (5) IT band syndrome Status: Acute (6) Unable to ambulate Status: Acute Current Medications Current Medications Current Medications Orphenadrine Citrate (Norflex) 60 mg 1X ONCE IM Last administered on 01/30/19at 21:23; Start 01/30/19 at 21:30; Stop 01/30/19 at 21:31; Status DC Dexamethasone (Decadron) 10 mg 1X ONCE PO Last administered on 01/30/19at 21:23; Start 01/30/19 at 21:30; Stop 01/30/19 at 21:31; Status DC Ondansetron HCl (Zofran) 4 mg PRN Q8HRS PRN IV NAUSEA/VOMITING 1ST CHOICE Last administered on 01/31/19at 02:37; Start 01/30/19 at 23:00; Stop 01/31/19 at 22:59; Status DC Sodium Chloride 1,000 ml @ 100 mls/hr 1X ONCE IV Last administered on 01/16 01:17; Start 01/31/19 at 00:15; Stop 01/31/19 at 10:14; Status DC Oxycodone/ Acetaminophen (Percocet 5/325) 1 tab PRN Q4HRS PRN PO SEVERE PAIN 7- 10; Start 01/31/19 at 01:00 Acetaminophen (Tylenol) 650 mg PRN Q6HRS PRN PO MILD PAIN / TEMP Last adm inistered on 01/31/19at 01:30; Start 01/31/19 at 01:15; Stop 01/31/19 at 10:13; Status DC Midodrine (Proamatine) 5 mg TIDWMEALS PO Last administered on 01/31/19at 10:13; Start 01/31/19 at 08:00; Stop 01/31/19 at 10:13; Status DC Trazodone HCl (Desyrel) 50 mg HS PO Last administered on 02/01/19at 22:08; Start 01/31/19 at 21:00 Famotidine (Pepcid) 20 mg PRN DAILY PRN PO HEARTBURN / GAS; Start 01/31/19 at 09:00 Trazodone HCl (Desyrel) 50 mg 1X ONCE PO Last administered on 01/31/19at 01:30; Start 01/31/19 at 01:30; Stop 01/31/19 at 01:31; Status DC Midodrine (Proamatine) 10 mg TIDWMEALS PO Last administered on 02/02/19at 12:11; Start 01/31/19 at 12:00 Acetaminophen (Tylenol) 500 mg PRN Q6HRS PRN PO MILD PAIN / TEMP Last administered on 02/01/19at 10:03; Start 01/31/19 at 10:00; Stop 02/01/19 at 12:19; Status DC Sodium Chloride 1,000 ml @ 100 mls/hr Q10H IV Last administered on 02/01/19at 01:22; Start 01/31/19 at 13:30; Stop 02/01/19 at 11:00; Status DC Thiamine Mononitrate (Vitamin B-1) 100 mg DAILY PO Last administered on 02/02/19at 08:16; Start 01/31/19 at 15:00 Acetaminophen (Tylenol) 1,000 mg PRN Q6HRS PRN PO PAIN Last administered on 02/01/19at 19:47; Start 02/01/19 at 12:30 Active Scripts Active Tylenol (Acetaminophen) 325 Mg Tablet 650 Mg PO PRN Q6HRS PRN Reported Midodrine Hcl 10 Mg Tablet 10 Mg PO TID Ranitidine Hcl 75 Mg Tablet 75 Mg PO PRN PRN Trazodone Hcl 50 Mg Tablet 50 Mg PO HS Allergies Allergies: Coded Allergies: Sulfa (Sulfonamide Antibiotics) (Verified Allergy, Severe, 06/06/17) Penicillins (Verified Allergy, Intermediate, Rash, 06/06/17) codeine (Verified Adverse Reaction, Intermediate, Nausea and Vomiting, 06/06/17) procaine (Verified Adverse Reaction, Mild, Nausea and Vomiting, 06/11/17) ROS General: YES: Fatigue PSYCHOLOGICAL ROS: YES: Anxiety Eyes: Yes Decreased vision HEENT: YES: Chelaches ALLERGY AND IMMUNOLOGY: YES: Seasonal Allergies Respiratory: YES: Cough Gastrointestinal: Yes Nausea Genitourinary: YES Other (NOCTURIA) Musculoskeletal: Yes Joint Pain, Yes Joint Stiffness, Yes Muscular Weakness Neurological: Yes Weakness Skin: Yes Dry Skin Physical Exam General: Alert, Oriented X3, Cooperative, No acute distress HEENT: Atraumatic, PERRLA, EOMI Lungs: Clear to auscultation Heart: Regular rate, Normal S1, Normal S2 Abdomen: Normal bowel sounds, No tenderness Skin: No breakdown Neuro: Normal speech, Sensation intact Psych/Mental Status: Mental status NL, Mood NL MUSCULOSKELETAL: No joint tenderness, No deformity, No swelling Vitals VITALS Vital Signs Date Time Temp Pulse Resp B/P (MAP) Pulse Ox O2 Delivery O2 Flow Rate FiO2 02/02/19 12:11 90 129/71 02/02/19 11:01 98.2 18 100 Room Air 98.2 Labs Labs Laboratory Tests Test 01/31/19 12:43 02/01/19 13:20 02/02/19 09:20 Erythrocyte Sedimentation Rate 29 (0-15) Vitamin B12 Level 478 pg/mL (247-911) Thyroid Stimulating Hormone (TSH) 0.892 uIU/mL (0.358-3.74) Sodium Level 134 mmol/L (136-145) 133 mmol/L (136-145) Potassium Level 5.0 mmol/L (3.5-5.1) 4.6 mmol/L (3.5-5.1) Chloride Level 97 mmol/L (98-107) 97 mmol/L (98-107) Carbon Dioxide Level 24 mmol/L (21-32) 24 mmol/L (21-32) Anion Gap 13 (6-14) 12 (6-14) Blood Urea Nitrogen 73 mg/dL (8-26) 70 mg/dL (8-26) Creatinine 3.0 mg/dL (0.7-1.3) 2.6 mg/dL (0.7-1.3) Estimated GFR (Cockcroft-Gault) 20.4 24.1 BUN/Creatinine Ratio 24 (6-20) Glucose Level 185 mg/dL (70-99) 260 mg/dL (70-99) Calcium Level 9.4 mg/dL (8.5-10.1) 8.8 mg/dL (8.5-10.1) Total Bilirubin 0.9 mg/dL (0.2-1.0) Aspartate Amino Transf (AST/SGOT) 46 U/L (15-37) Alanine Aminotransferase (ALT/SGPT) 40 U/L (16-63) Alkaline Phosphatase 24 U/L (46-116) Total Protein 8.4 g/dL (6.4-8.2) Albumin 4.4 g/dL (3.4-5.0) Albumin/Globulin Ratio 1.1 (1.0-1.7) Laboratory Tests Test 02/01/19 13:20 02/02/19 09:20 Sodium Level 134 mmol/L (136-145) 133 mmol/L (136-145) Potassium Level 5.0 mmol/L (3.5-5.1) 4.6 mmol/L (3.5-5.1) Chloride Level 97 mmol/L (98-107) 97 mmol/L (98-107) Carbon Dioxide Level 24 mmol/L (21-32) 24 mmol/L (21-32) Anion Gap 13 (6-14) 12 (6-14) Blood Urea Nitrogen 73 mg/dL (8-26) 70 mg/dL (8-26) Creatinine 3.0 mg/dL (0.7-1.3) 2.6 mg/dL (0.7-1.3) Estimated GFR (Cockcroft-Gault) 20.4 24.1 BUN/Creatinine Ratio 24 (6-20) Glucose Level 185 mg/dL (70-99) 260 mg/dL (70-99) Calcium Level 9.4 mg/dL (8.5-10.1) 8.8 mg/dL (8.5-10.1) Total Bilirubin 0.9 mg/dL (0.2-1.0) Aspartate Amino Transf (AST/SGOT) 46 U/L (15-37) Alanine Aminotransferase (ALT/SGPT) 40 U/L (16-63) Alkaline Phosphatase 24 U/L (46-116) Total Protein 8.4 g/dL (6.4-8.2) Albumin 4.4 g/dL (3.4-5.0) Albumin/Globulin Ratio 1.1 (1.0-1.7) Assessment/Plan Assessment/Plan IMP JINA WITH CR OF 3.0 CKD STAGE 3 WITH CR OF 1.5-2.0 HX OF ORTHOSTASIS HIP BURSITIS PLAN IVF'S RENAL SONOGRAM UA WITH MICRO BENNY CARBAJAL MD Feb 02, 2019 12:25
--- NOTE | 2019-02-02 12:50 | PDOC ---
[facility] PROGRESS NOTE Chief Complaint Chief Complaint Orthostatic hypotension [id number] renal insufficiency Hip pain Prior hx of PE Vasectomy History of Present Illness History of Present Illness 02/02/19 Pt seen and examined (in no acute distress; BP stable) Cr trending down (2.6 today compared to 3.0 yesterday) Chart reviewed VIELKA HORN 02/01/19 Pt seen and examined (well-appearing and in no acute distress; BP remains sta ble) Chart reviewed VIELKA HORN Vitals/I&O Vitals/I&O: Vital Signs Date Time Temp Pulse Resp B/P (MAP) Pulse Ox O2 Delivery O2 Flow Rate FiO2 02/02/19 12:11 90 129/71 02/02/19 11:01 98.2 18 100 Room Air 98.2 I & O 02/01/19 02/01/19 02/02/19 15:00 23:00 07:00 Intake Total 300 ml 360 ml 300 ml Balance 300 ml 360 ml 300 ml Physical Exam General: Alert, Oriented X3, Cooperative, No acute distress Heart: Regular rate, Normal S1, Normal S2 Lungs: Clear Abdomen: Normal bowel sounds, No tenderness Extremities: No clubbing, No cyanosis Skin: No breakdown Labs Labs: Laboratory Tests Test 02/01/19 13:20 02/02/19 09:20 Sodium Level 134 mmol/L (136-145) 133 mmol/L (136-145) Potassium Level 5.0 mmol/L (3.5-5.1) 4.6 mmol/L (3.5-5.1) Chloride Level 97 mmol/L (98-107) 97 mmol/L (98-107) Carbon Dioxide Level 24 mmol/L (21-32) 24 mmol/L (21-32) Anion Gap 13 (6-14) 12 (6-14) Blood Urea Nitrogen 73 mg/dL (8-26) 70 mg/dL (8-26) Creatinine 3.0 mg/dL (0.7-1.3) 2.6 mg/dL (0.7-1.3) Estimated GFR (Cockcroft-Gault) 20.4 24.1 BUN/Creatinine Ratio 24 (6-20) Glucose Level 185 mg/dL (70-99) 260 mg/dL (70-99) Calcium Level 9.4 mg/dL (8.5-10.1) 8.8 mg/dL (8.5-10.1) Total Bilirubin 0.9 mg/dL (0.2-1.0) Aspartate Amino Transf (AST/SGOT) 46 U/L (15-37) Alanine Aminotransferase (ALT/SGPT) 40 U/L (16-63) Alkaline Phosphatase 24 U/L (46-116) Total Protein 8.4 g/dL (6.4-8.2) Albumin 4.4 g/dL (3.4-5.0) Albumin/Globulin Ratio 1.1 (1.0-1.7) Review of Systems Review of Systems: No headache No fever/chills Assessment and Plan Assessmemt and Plan Problems Medical Problems: (1) Acute on chronic renal insufficiency Status: Acute (2) Arthritis Status: Acute (3) Bursitis Status: Acute (4) Hip pain Status: Acute (5) IT band syndrome Status: Acute (6) Unable to ambulate Status: Acute Assessment: Orthostatic hypotension [id number] renal insufficiency Hip pain Prior hx of PE Vasectomy Plan: IV fluids (1/2 NS 75 cc/hr) Trend Cr Continue Midodrine 10 mg Await final nephrology input (Dr. Anand) Pending possible SNU D/C this upcoming Sunday PT/OT Home meds Comment Review of Relevant I have reviewed the following items chelsea (where applicable) has been applied. SHANDA COULTER III DO Feb 02, 2019 12:50
[2019-02-02] MEDS: IV 1/2 NORMAL SALINE 1,000 ML IV SCH (13:18)
[2019-02-02 13:24] LABS: BILIRUBIN,URINE NEGATIVE (NEG); CLARITY,URINE CLEAR; COLOR,URINE YELLOW; NITRITE,URINE NEGATIVE (NEG); PROTEIN,URINE NEGATIVE (NEG-TRACE)
[2019-02-02 13:33] LABS: HYALINE CASTS, URINE MODERATE /HPF; SQUAMOUS EPITHELIAL CELL,UR FEW /LPF
[2019-02-02 13:34] LABS: BACTERIA,URINE 0 /HPF (0-FEW); RBC,URINE 0 /HPF (0-2)
--- NOTE | 2019-02-02 14:20 | PDOC ---
PROGRESS NOTES Assessment Assessment LE weakness and numbness. Degenerative L-spine disease. Back pain. Hip pain. Orthostatic hypotension. Renal failure. DM. PE, Hx. C2 fracture in 2018. Alcohol use/abuse x 50 years. No evidence of L-spine radiculopathy this time. RECOMMENDATIONS/PLAN: Vit B1 100 mg daily. Treat medical and orthopedic diseases. Consulted Dr. Medrano. OT/PT. Patient education for alcohol abstinence. HISTORY OF THE PRESENT ILLNESS: This is a 78-year-old male patient who was just discharged yesterday. He had orthostatic hypotension and was on ProAmatine to go home. When he got home, he started having hip pain. His brought him back to the to hospital today. He stated he has pain in bilateral hip and back, and also has symptoms of numbness and weakness in LE. No falls. No urinary or bowel dysfunction. He stated on 02/02/19 that no symptoms of numbness, tingling, burning or pain except chronic weakness in LE. PAST MEDICAL HISTORY: Orthostasis, pulmonary embolism, vasectomy. ALLERGIES: PENICILLIN, SULFA, CODEINE, AND PROCAINE. FAMILY HISTORY: Coronary artery disease. MEDICATIONS: Refer to [facility] SOCIAL HISTORY: Lives with his at home. Denies current smoking and illicit drug use. He has been drinking 4-6 OZ of 40% alcohol a day for 50 years. REVIEW OF SYSTEMS: Constitutional: No malnutrition, weight loss, cachexia. Head: No traumatic brain or head injury. Skin: No edema, or rash. Ear: No infection. Eyes: No vision loss or color blindness. Nose: No bleeding or purulent discharges. Hearing: Hearing decrease. Neck: C1 fracture in 2018. Cardiac: No IL, arrhythmia. Pulmonary: PE. GI: No GI ulcer, GI bleeding. Urinary/genital: Renal failure. Endocrinologic: Diabetes Mellitus. Skeletomuscular: LE weakness. Neurological: see HP. Psychiatric: Alcohol use/abuse. Otherwise, not [id number] review of systems. PHYSICAL EXAMINATION: General appearance is in subacute distress. HEENT: Normocephalic and nontraumatic. Eyes, nose, ears, and throat are unremarkable. Neck is supple. No lymphadenopathy. No crepitus. Cardiovascular: S1, S2, regular rate and rhythm. Pulmonary: Clear to auscultation bilaterally. Abdomen: Bowel sounds are positive. Extremities: No rash, lesions, or edema. No restriction of range of motion NEUROLOGICAL EXAMINATION: Alert Oriented to time, place and person. PERRL. EOMI. CN: no focal findings. Muscle tone: within normal. Muscle strength: 5 DTR: 2 UE, 0-1 at knee. Plantar reflex: Flexor response bilaterally Gait: Able to walk with a walker. Sensory exam: no abnormal findings. No cerebellar signs elicited. F-T-N test fine. Objective Objective Vital Signs Date Time Temp Pulse Resp B/P (MAP) Pulse Ox O2 Delivery O2 Flow Rate FiO2 02/02/19 12:11 90 129/71 02/02/19 11:01 98.2 18 100 Room Air 98.2 Intake and Output 02/02/19 07:00 Intake Total 960 ml Balance 960 ml Intake Oral 960 ml # Voids 3 Vitals Signs Vitals VS - Last 72 Hours, by Label Date Time Temp Pulse Resp B/P (MAP) Pulse Ox O2 Delivery O2 Flow Rate FiO2 02/02/19 12:11 90 129/71 02/02/19 11:01 98.2 90 18 129/71 (90) 100 Room Air 98.2 02/02/19 08:16 88 116/74 02/02/19 08:00 Room Air 02/02/19 07:15 98.4 88 18 116/74 (88) 98 Room Air 98.4 02/02/19 03:10 98.1 106 18 102/66 (78) 99 Room Air 98.1 02/01/19 23:10 97.8 107 18 121/51 (74) 99 Room Air 97.8 02/01/19 20:00 Room Air 02/01/19 19:10 98.2 87 18 147/87 (107) 100 Room Air 98.2 02/01/19 17:09 104 151/81 02/01/19 15:20 97.5 104 18 151/81 (104) 99 Room Air 97.5 02/01/19 12:43 101 134/90 02/01/19 11:06 97.7 101 18 134/90 (105) 100 Room Air 97.7 02/01/19 09:33 85 121/68 02/01/19 08:00 Room Air 02/01/19 07:46 97.9 85 17 121/68 (85) 99 Room Air 97.9 Laboratory Laboratory Laboratory Tests Test 02/02/19 09:20 02/02/19 13:10 Sodium Level 133 mmol/L (136-145) Potassium Level 4.6 mmol/L (3.5-5.1) Chloride Level 97 mmol/L (98-107) Carbon Dioxide Level 24 mmol/L (21-32) Anion Gap 12 (6-14) Blood Urea Nitrogen 70 mg/dL (8-26) Creatinine 2.6 mg/dL (0.7-1.3) Estimated GFR (Cockcroft-Gault) 24.1 Glucose Level 260 mg/dL (70-99) Calcium Level 8.8 mg/dL (8.5-10.1) Urine Collection Type Unknown Urine Color Yellow Urine Clarity Clear Urine pH 5.0 Urine Specific Martelle 1.020 Urine Protein Negative mg/dL (NEG-TRACE) Urine Glucose (UA) 500 mg/dL (NEG) Urine Ketones (Stick) Negative mg/dL (NEG) Urine Blood Small (NEG) Urine Nitrite Negative (NEG) Urine Bilirubin Negative (NEG) Urine Urobilinogen Dipstick 1.0 mg/dL (0.2 mg/dL) Urine Leukocyte Esterase Negative (NEG) Urine RBC 0 /HPF (0-2) Urine WBC 1-4 /HPF (0-4) Urine Squamous Epithelial Cells Few /LPF Urine Bacteria 0 /HPF (0-FEW) Urine Hyaline Casts Moderate /HPF Urine Mucus Slight /LPF Medication Medications Current Medications Sodium Chloride 1,000 ml @ 75 mls/hr [id number] IV Last administered on 02/02/19at 13:18; Start 02/02/19 at 13:00 Comment Review of Relevant I have reviewed the following items chelsea (where applicable) has been applied. PEG TO MD Feb 02, 2019 14:19
[2019-02-02 15:10] VITALS: BP 124/62
--- NOTE | 2019-02-02 18:38 | RAD ---
Complete renal ultrasound HISTORY: Acute renal insufficiency. Right renal cystic lesion on recent MR lumbar spine imaging. COMPARISON: MR lumbar spine January 31, 2019 FINDINGS: Aorta and IVC completely dysuria by bowel gas shadowing. There is increased liver echogenicity likely representing steatosis. Right renal length 9.8 cm. There is moderate cortical thinning. Normal parenchymal echogenicity. At the midpole is a partially visualized unilocular anechoic simple cystic structure measuring 2.0 cm representing a cystic lesion on recent MR imaging. No mass, calculus or hydronephrosis right kidney. Urinary bladder mildly distended demonstrates bilateral urine jets by color Doppler sonography. Left renal length 9.1 cm. Moderate cortical thinning. Normal echogenicity. No mass, calculus or hydronephrosis documented. IMPRESSION: Moderate renal cortical atrophy. No hydronephrosis. 2 cm simple cyst of the right renal midpole incompletely visualized due to bowel gas shadowing limiting visualization of a portion of the cyst. This is classified Bosniak 2F. Consider six-month follow-up to document stability. Electronically signed by: Jerson Alonso MD (02/02/2019 6:35 PM) [facility]
[2019-02-02 19:10] VITALS: BP 143/87
[2019-02-02] MEDS: ACETAMINOPHEN 500 MG TABLET PO PRN (21:30)
[2019-02-02 23:07] LABS: HEMOGLOBIN A1C 6.3 % (4.8-5.6)
[2019-02-02 23:10] VITALS: BP 121/77
[2019-02-02] MEDS: traZODone 50 MG TABLET. PO SCH (23:31)
[2019-02-03 03:10] VITALS: BP 124/77
[2019-02-03] MEDS: IV 1/2 NORMAL SALINE 1,000 ML IV SCH ×2 (03:21→16:43)
[2019-02-03 04:59] LABS: HEMATOCRIT 32.9 % (39.0-53.0); HEMOGLOBIN 11.4 g/dL (13.0-17.5); RED BLOOD COUNT 3.16 x10^6/uL (4.30-5.70); RED CELL DISTRIBUTION WIDTH 14.9 % (11.5-14.5); WHITE BLOOD COUNT 6.1 x10^3/uL (4.0-11.0)
[2019-02-03 05:36] LABS: CALCIUM 8.9 mg/dL (8.5-10.1); CREATININE 2.3 mg/dL (0.7-1.3); GFR 27.7; POTASSIUM 4.6 mmol/L (3.5-5.1)
[2019-02-03 07:00] VITALS: BP 104/60
[2019-02-03] MEDS: MIDODRINE 5 MG TABLET PO SCH ×3 (08:29→16:42)
[2019-02-03] MEDS: THIAMINE 100 MG TABLET. PO SCH (08:32)
--- NOTE | 2019-02-03 09:21 | PDOC ---
PROGRESS NOTES Subjective Subjective No new complaints. Objective Objective Vital Signs Date Time Temp Pulse Resp B/P (MAP) Pulse Ox O2 Delivery O2 Flow Rate FiO2 02/03/19 08:32 74 104/60 02/03/19 07:00 98.5 18 97 Room Air 98.5 Intake and Output 02/03/19 06:59 Intake Total 2660 ml Balance 2660 ml Intake Oral 1660 ml IV Total 1000 ml # Voids 4 Physical Exam Physical Exam He is supine in bed and seems to be comfortable and he is walking with physical therapy. He continues with edema of his feet and legs. Assessment Assessment Problems Medical Problems: (1) Acute on chronic renal insufficiency Status: Acute (2) JINA (acute kidney injury) Status: Acute (3) Arthritis Status: Acute (4) Back pain Status: Acute (5) Bursitis Status: Acute (6) CKD (chronic kidney disease), stage III Status: Chronic (7) Degenerative disk disease Status: Chronic (8) Degenerative joint disease Status: Chronic (9) Diabetes mellitus Status: Chronic (10) Generalized weakness Status: Acute (11) Hip pain Status: Acute (12) IT band syndrome Status: Acute (13) Orthostasis Status: Acute (14) Orthostatic hypotension Status: Acute (15) Unable to ambulate Status: Acute Plan Plan of Care To SNF or home with out patient follow up when medically stable. Comment Review of Relevant I have reviewed the following items chelsea (where applicable) has been applied. Labs Laboratory Tests Test 02/01/19 13:20 02/02/19 09:20 02/02/19 13:10 02/03/19 04:05 Sodium Level 134 mmol/L (136-145) 133 mmol/L (136-145) 132 mmol/L (136-145) Potassium Level 5.0 mmol/L (3.5-5.1) 4.6 mmol/L (3.5-5.1) 4.6 mmol/L (3.5-5.1) Chloride Level 97 mmol/L (98-107) 97 mmol/L (98-107) 98 mmol/L (98-107) Carbon Dioxide Level 24 mmol/L (21-32) 24 mmol/L (21-32) 21 mmol/L (21-32) Anion Gap 13 (6-14) 12 (6-14) 13 (6-14) Blood Urea Nitrogen 73 mg/dL (8-26) 70 mg/dL (8-26) 62 mg/dL (8-26) Creatinine 3.0 mg/dL (0.7-1.3) 2.6 mg/dL (0.7-1.3) 2.3 mg/dL (0.7-1.3) Estimated GFR (Cockcroft-Gault) 20.4 24.1 27.7 BUN/Creatinine Ratio 24 (6-20) Glucose Level 185 mg/dL (70-99) 260 mg/dL (70-99) 148 mg/dL (70-99) Hemoglobin A1c 6.3 % (4.8-5.6) Calcium Level 9.4 mg/dL (8.5-10.1) 8.8 mg/dL (8.5-10.1) 8.9 mg/dL (8.5-10.1) Total Bilirubin 0.9 mg/dL (0.2-1.0) Aspartate Amino Transf (AST/SGOT) 46 U/L (15-37) Alanine Aminotransferase (ALT/SGPT) 40 U/L (16-63) Alkaline Phosphatase 24 U/L (46-116) Total Protein 8.4 g/dL (6.4-8.2) Albumin 4.4 g/dL (3.4-5.0) Albumin/Globulin Ratio 1.1 (1.0-1.7) Urine Collection Type Unknown Urine Color Yellow Urine Clarity Clear Urine pH 5.0 Urine Specific [place] 1.020 Urine Protein Negative mg/dL (NEG-TRACE) Urine Glucose (UA) 500 mg/dL (NEG) Urine Ketones (Stick) Negative mg/dL (NEG) Urine Blood Small (NEG) Urine Nitrite Negative (NEG) Urine Bilirubin Negative (NEG) Urine Urobilinogen Dipstick 1.0 mg/dL (0.2 mg/dL) Urine Leukocyte Esterase Negative (NEG) Urine RBC 0 /HPF (0-2) Urine WBC 1-4 /HPF (0-4) Urine Squamous Epithelial Cells Few /LPF Urine Bacteria 0 /HPF (0-FEW) Urine Hyaline Casts Moderate /HPF Urine Mucus Slight /LPF White Blood Count 6.1 x10^3/uL (4.0-11.0) Red Blood Count 3.16 x10^6/uL (4.30-5.70) Hemoglobin 11.4 g/dL (13.0-17.5) Hematocrit 32.9 % (39.0-53.0) Mean Corpuscular Volume 104 fL (79-100) Mean Corpuscular Hemoglobin 36 pg (25-35) Mean Corpuscular Hemoglobin Concent 35 g/dL (31-37) Red Cell Distribution Width 14.9 % (11.5-14.5) Platelet Count 94 x10^3/uL (140-400) Laboratory Tests Test 02/02/19 09:20 02/02/19 13:10 02/03/19 04:05 Sodium Level 133 mmol/L (136-145) 132 mmol/L (136-145) Potassium Level 4.6 mmol/L (3.5-5.1) 4.6 mmol/L (3.5-5.1) Chloride Level 97 mmol/L (98-107) 98 mmol/L (98-107) Carbon Dioxide Level 24 mmol/L (21-32) 21 mmol/L (21-32) Anion Gap 12 (6-14) 13 (6-14) Blood Urea Nitrogen 70 mg/dL (8-26) 62 mg/dL (8-26) Creatinine 2.6 mg/dL (0.7-1.3) 2.3 mg/dL (0.7-1.3) Estimated GFR (Cockcroft-Gault) 24.1 27.7 Glucose Level 260 mg/dL (70-99) 148 mg/dL (70-99) Calcium Level 8.8 mg/dL (8.5-10.1) 8.9 mg/dL (8.5-10.1) Urine Collection Type Unknown Urine Color Yellow Urine Clarity Clear Urine pH 5.0 Urine Specific [place] 1.020 Urine Protein Negative mg/dL (NEG-TRACE) Urine Glucose (UA) 500 mg/dL (NEG) Urine Ketones (Stick) Negative mg/dL (NEG) Urine Blood Small (NEG) Urine Nitrite Negative (NEG) Urine Bilirubin Negative (NEG) Urine Urobilinogen Dipstick 1.0 mg/dL (0.2 mg/dL) Urine Leukocyte Esterase Negative (NEG) Urine RBC 0 /HPF (0-2) Urine WBC 1-4 /HPF (0-4) Urine Squamous Epithelial Cells Few /LPF Urine Bacteria 0 /HPF (0-FEW) Urine Hyaline Casts Moderate /HPF Urine Mucus Slight /LPF White Blood Count 6.1 x10^3/uL (4.0-11.0) Red Blood Count 3.16 x10^6/uL (4.30-5.70) Hemoglobin 11.4 g/dL (13.0-17.5) Hematocrit 32.9 % (39.0-53.0) Mean Corpuscular Volume 104 fL (79-100) Mean Corpuscular Hemoglobin 36 pg (25-35) Mean Corpuscular Hemoglobin Concent 35 g/dL (31-37) Red Cell Distribution Width 14.9 % (11.5-14.5) Platelet Count 94 x10^3/uL (140-400) Medications Current Medications Orphenadrine Citrate (Norflex) 60 mg 1X ONCE IM Last administered on 01/30/19at 21:23; Start 01/30/19 at 21:30; Stop 01/30/19 at 21:31; Status DC Dexamethasone (Decadron) 10 mg 1X ONCE PO Last administered on 01/30/19at 21:23; Start 01/30/19 at 21:30; Stop 01/30/19 at 21:31; Status DC Ondansetron HCl (Zofran) 4 mg PRN Q8HRS PRN IV NAUSEA/VOMITING 1ST CHOICE Last administered on 01/31/19at 02:37; Start 01/30/19 at 23:00; Stop 01/31/19 at 22:59; Status DC Sodium Chloride 1,000 ml @ 100 mls/hr 1X ONCE IV Last administered on 01/31/19at 01:17; Start 01/31/19 at 00:15; Stop 01/31/19 at 10:14; Status DC Oxycodone/ Acetaminophen (Percocet 5/325) 1 tab PRN Q4HRS PRN PO SEVERE PAIN 7- 10; Start 01/31/19 at 01:00 Acetaminophen (Tylenol) 650 mg PRN Q6HRS PRN PO MILD PAIN / TEMP Last administered on 01/31/19at 01:30; Start 01/31/19 at 01:15; Stop 01/31/19 at 10: 13; Status DC Midodrine (Proamatine) 5 mg TIDWMEALS PO Last administered on 01/31/19at 10:13; Start 01/31/19 at 08:00; Stop 01/31/19 at 10:13; Status DC Trazodone HCl (Desyrel) 50 mg HS PO Last administered on 02/02/19at 23:31; Start 01/31/19 at 21:00 Famotidine (Pepcid) 20 mg PRN DAILY PRN PO HEARTBURN / GAS; Start 01/31/19 at 09:00 Trazodone HCl (Desyrel) 50 mg 1X ONCE PO Last administered on 01/31/19at 01:30; Start 01/31/19 at 01:30; Stop 01/31/19 at 01:31; Status DC Midodrine (Proamatine) 10 mg TIDWMEALS PO Last administered on 02/03/19 08:32; Start 01/31/19 at 12:00 Acetaminophen (Tylenol) 500 mg PRN Q6HRS PRN PO MILD PAIN / TEMP Last administered on 02/01/19at 10:03; Start 01/31/19 at 10:00; Stop 02/01/19 at 12:19; Status DC Sodium Chloride 1,000 ml @ 100 mls/hr Q10H IV Last administered on 02/01/19at 01:22; Start 01/31/19 at 13:30; Stop 02/01/19 at 11:00; Status DC Thiamine Mononitrate (Vitamin B-1) 100 mg DAILY PO Last administered on 02/03/19at 08:32; Start 01/31/19 at 15:00 Acetaminophen (Tylenol) 1,000 mg PRN Q6HRS PRN PO PAIN Last administered on 02/02/19at 21:30; Start 02/01/19 at 12:30 Sodium Chloride 1,000 ml @ 75 mls/hr [id number] IV Last administered on 02/03/19 03:21; Start 02/02/19 at 13:00 Active Scripts Active Tylenol (Acetaminophen) 325 Mg Tablet 650 Mg PO PRN Q6HRS PRN Reported Midodrine Hcl 10 Mg Tablet 10 Mg PO TID Ranitidine Hcl 75 Mg Tablet 75 Mg PO PRN PRN Trazodone Hcl 50 Mg Tablet 50 Mg PO HS Vitals/I & O Vital Sign - Last 24 Hours 02/02/19 02/02/19 02/02/19 02/02/19 11:01 12:11 15:10 17:22 Temp 98.2 97.6 98.2 97.6 Pulse 90 90 90 90 Resp 18 18 B/P (MAP) 129/71 (90) 129/71 124/62 (82) 124/62 Pulse Ox 100 100 O2 Delivery Room Air Room Air 02/02/19 02/02/19 02/02/19 02/03/19 19:10 20:11 23:10 03:10 Temp 98.2 98.4 98.1 98.2 98.4 98.1 Pulse 97 92 93 Resp 20 18 18 B/P (MAP) 143/87 (105) 121/77 (92) 124/77 (93) Pulse Ox 99 99 99 O2 Delivery Room Air Room Air Room Air Room Air 02/03/19 02/03/19 07:00 08:32 Temp 98.5 98.5 Pulse 74 74 Resp 18 B/P (MAP) 104/60 (75) 104/60 Pulse Ox 97 O2 Delivery Room Air Intake and Output 02/02/19 02/02/19 02/03/19 14:59 22:59 06:59 Intake Total 860 ml 600 ml 1200 ml Balance 860 ml 600 ml 1200 ml ZONIA WALKER MD Feb 03, 2019 09:21
--- NOTE | 2019-02-03 10:16 | PDOC ---
PROGRESS NOTES Assessment Problems Medical Problems: (1) Acute on chronic renal insufficiency Status: Acute (2) JINA (acute kidney injury) Status: Acute (3) Arthritis Status: Acute (4) Back pain Status: Acute (5) Bursitis Status: Acute (6) CKD (chronic kidney disease), stage III Status: Chronic (7) Degenerative disk disease Status: Chronic (8) Degenerative joint disease Status: Chronic (9) Diabetes mellitus Status: Chronic (10) Generalized weakness Status: Acute (11) Hip pain Status: Acute (12) IT band syndrome Status: Acute (13) Orthostasis Status: Acute (14) Orthostatic hypotension Status: Acute (15) Unable to ambulate Status: Acute Lower extremity weakness and numbness, actually has good strength and sensation exam, he has degenerative lumbar-spine disease, not surgical, arthritic pain, hypotension, history of cervical fracture, also history of alcohol abuse. Plan Vit B1 100 mg daily. Treat medical and orthopedic diseases. Rehabilitation modalties Patient education for alcohol abstinence. SNU Subjective No complaints Objective Vital Signs Date Time Temp Pulse Resp B/P (MAP) Pulse Ox O2 Delivery O2 Flow Rate FiO2 02/03/19 08:32 74 104/60 02/03/19 08:00 Room Air 02/03/19 07:00 98.5 18 97 98.5 Intake and Output 02/03/19 06:59 Intake Total 2660 ml Balance 2660 ml Intake Oral 1660 ml IV Total 1000 ml # Voids 4 PHYSICAL EXAM Alert. Oriented to time, place and person. PERRL. EOMI. CN: no focal findings. Muscle tone: normal. Muscle strength: 5/5 DTR: 1+ Plantar reflex: flexor Gait: not examined Sensory exam: no abnormal findings. No cerebellar signs elicited. Review of Relevant I have reviewed the following items chelsea (where applicable) has been applied. Labs Laboratory Tests Test 02/01/19 13:20 02/02/19 09:20 02/02/19 13:10 02/03/19 04:05 Sodium Level 134 mmol/L (136-145) 133 mmol/L (136-145) 132 mmol/L (136-145) Potassium Level 5.0 mmol/L (3.5-5.1) 4.6 mmol/L (3.5-5.1) 4.6 mmol/L (3.5-5.1) Chloride Level 97 mmol/L (98-107) 97 mmol/L (98-107) 98 mmol/L (98-107) Carbon Dioxide Level 24 mmol/L (21-32) 24 mmol/L (21-32) 21 mmol/L (21-32) Anion Gap 13 (6-14) 12 (6-14) 13 (6-14) Blood Urea Nitrogen 73 mg/dL (8-26) 70 mg/dL (8-26) 62 mg/dL (8-26) Creatinine 3.0 mg/dL (0.7-1.3) 2.6 mg/dL (0.7-1.3) 2.3 mg/dL (0.7-1.3) Estimated GFR (Cockcroft-Gault) 20.4 24.1 27.7 BUN/Creatinine Ratio 24 (6-20) Glucose Level 185 mg/dL (70-99) 260 mg/dL (70-99) 148 mg/dL (70-99) Hemoglobin A1c 6.3 % (4.8-5.6) Calcium Level 9.4 mg/dL (8.5-10.1) 8.8 mg/dL (8.5-10.1) 8.9 mg/dL (8.5-10.1) Total Bilirubin 0.9 mg/dL (0.2-1.0) Aspartate Amino Transf (AST/SGOT) 46 U/L (15-37) Alanine Aminotransferase (ALT/SGPT) 40 U/L (16-63) Alkaline Phosphatase 24 U/L (46-116) Total Protein 8.4 g/dL (6.4-8.2) Albumin 4.4 g/dL (3.4-5.0) Albumin/Globulin Ratio 1.1 (1.0-1.7) Urine Collection Type Unknown Urine Color Yellow Urine Clarity Clear Urine pH 5.0 Urine Specific [place] 1.020 Urine Protein Negative mg/dL (NEG-TRACE) Urine Glucose (UA) 500 mg/dL (NEG) Urine Ketones (Stick) Negative mg/dL (NEG) Urine Blood Small (NEG) Urine Nitrite Negative (NEG) Urine Bilirubin Negative (NEG) Urine Urobilinogen Dipstick 1.0 mg/dL (0.2 mg/dL) Urine Leukocyte Esterase Negative (NEG) Urine RBC 0 /HPF (0-2) Urine WBC 1-4 /HPF (0-4) Urine Squamous Epithelial Cells Few /LPF Urine Bacteria 0 /HPF (0-FEW) Urine Hyaline Casts Moderate /HPF Urine Mucus Slight /LPF White Blood Count 6.1 x10^3/uL (4.0-11.0) Red Blood Count 3.16 x10^6/uL (4.30-5.70) Hemoglobin 11.4 g/dL (13.0-17.5) Hematocrit 32.9 % (39.0-53.0) Mean Corpuscular Volume 104 fL (79-100) Mean Corpuscular Hemoglobin 36 pg (25-35) Mean Corpuscular Hemoglobin Concent 35 g/dL (31-37) Red Cell Distribution Width 14.9 % (11.5-14.5) Platelet Count 94 x10^3/uL (140-400) Laboratory Tests Test 02/02/19 13:10 02/03/19 04:05 Urine Collection Type Unknown Urine Color Yellow Urine Clarity Clear Urine pH 5.0 Urine Specific [place] 1.020 Urine Protein Negative mg/dL (NEG-TRACE) Urine Glucose (UA) 500 mg/dL (NEG) Urine Ketones (Stick) Negative mg/dL (NEG) Urine Blood Small (NEG) Urine Nitrite Negative (NEG) Urine Bilirubin Negative (NEG) Urine Urobilinogen Dipstick 1.0 mg/dL (0.2 mg/dL) Urine Leukocyte Esterase Negative (NEG) Urine RBC 0 /HPF (0-2) Urine WBC 1-4 /HPF (0-4) Urine Squamous Epithelial Cells Few /LPF Urine Bacteria 0 /HPF (0-FEW) Urine Hyaline Casts Moderate /HPF Urine Mucus Slight /LPF White Blood Count 6.1 x10^3/uL (4.0-11.0) Red Blood Count 3.16 x10^6/uL (4.30-5.70) Hemoglobin 11.4 g/dL (13.0-17.5) Hematocrit 32.9 % (39.0-53.0) Mean Corpuscular Volume 104 fL (79-100) Mean Corpuscular Hemoglobin 36 pg (25-35) Mean Corpuscular Hemoglobin Concent 35 g/dL (31-37) Red Cell Distribution Width 14.9 % (11.5-14.5) Platelet Count 94 x10^3/uL (140-400) Sodium Level 132 mmol/L (136-145) Potassium Level 4.6 mmol/L (3.5-5.1) Chloride Level 98 mmol/L (98-107) Carbon Dioxide Level 21 mmol/L (21-32) Anion Gap 13 (6-14) Blood Urea Nitrogen 62 mg/dL (8-26) Creatinine 2.3 mg/dL (0.7-1.3) Estimated GFR (Cockcroft-Gault) 27.7 Glucose Level 148 mg/dL (70-99) Calcium Level 8.9 mg/dL (8.5-10.1) Medications Current Medications Orphenadrine Citrate (Norflex) 60 mg 1X ONCE IM Last administered on 01/30/19at 21:23; Start 01/30/19 at 21:30; Stop 01/30/19 at 21:31; Status DC Dexamethasone (Decadron) 10 mg 1X ONCE PO Last administered on 01/30/19at 21:23; Start 01/30/19 at 21:30; Stop 01/30/19 at 21:31; Status DC Ondansetron HCl (Zofran) 4 mg PRN Q8HRS PRN IV NAUSEA/VOMITING 1ST CHOICE Last administered on 01/31/19at 02:37; Start 01/30/19 at 23:00; Stop 01/31/19 at 22:59; Status DC Sodium Chloride 1,000 ml @ 100 mls/hr 1X ONCE IV Last administered on 01/31/19at 01:17; Start 01/31/19 at 00:15; Stop 01/31/19 at 10:14; Status DC Oxycodone/ Acetaminophen (Percocet 5/325) 1 tab PRN Q4HRS PRN PO SEVERE PAIN 7- 10; Start 01/31/19 at 01:00 Acetaminophen (Tylenol) 650 mg PRN Q6HRS PRN PO MILD PAIN / TEMP Last administered on 01/31/19at 01:30; Start 01/31/19 at 01:15; Stop 01/31/19 at 10:13; Status DC Midodrine (Proamatine) 5 mg TIDWMEALS PO Last administered on 01/31/19at 10:13; Start 01/31/19 at 08:00; Stop 01/31/19 at 10:13; Status DC Trazodone HCl (Desyrel) 50 mg HS PO Last administered on 02/02/19at 23:31; Start 01/31/19 at 21:00 Famotidine (Pepcid) 20 mg PRN DAILY PRN PO HEARTBURN / GAS; Start 01/31/19 at 09:00 Trazodone HCl (Desyrel) 50 mg 1X ONCE PO Last administered on 01/31/19at 01:30; Start 01/31/19 at 01:30; Stop 01/31/19 at 01:31; Status DC Midodrine (Proamatine) 10 mg TIDWMEALS PO Last administered on 02/03/19 08:32; Start 01/31/19 at 12:00 Acetaminophen (Tylenol) 500 mg PRN Q6HRS PRN PO MILD PAIN / TEMP Last administered on 02/01/19at 10:03; Start 01/31/19 at 10:00; Stop 02/01/19 at 12:1 9; Status DC Sodium Chloride 1,000 ml @ 100 mls/hr Q10H IV Last administered on 02/01/19at 01:22; Start 01/31/19 at 13:30; Stop 02/01/19 at 11:00; Status DC Thiamine Mononitrate (Vitamin B-1) 100 mg DAILY PO Last administered on 02/03/19at 08:32; Start 01/31/19 at 15:00 Acetaminophen (Tylenol) 1,000 mg PRN Q6HRS PRN PO PAIN Last administered on 02/02/19at 21:30; Start 02/01/19 at 12:30 Sodium Chloride 1,000 ml @ 75 mls/hr [id number] IV Last administered on 02/03/19 03:21; Start 02/02/19 at 13:00 Active Scripts Active Tylenol (Acetaminophen) 325 Mg Tablet 650 Mg PO PRN Q6HRS PRN Reported Midodrine Hcl 10 Mg Tablet 10 Mg PO TID Ranitidine Hcl 75 Mg Tablet 75 Mg PO PRN PRN Trazodone Hcl 50 Mg Tablet 50 Mg PO HS Vitals/I & O Vital Sign - Last 24 Hours 02/02/19 02/02/19 02/02/19 02/02/19 11:01 12:11 15:10 17:22 Temp 98.2 97.6 98.2 97.6 Pulse 90 90 90 90 Resp 18 18 B/P (MAP) 129/71 (90) 129/71 124/62 (82) 124/62 Pulse Ox 100 100 O2 Delivery Room Air Room Air 02/02/19 02/02/19 02/02/19 02/03/19 19:10 20:11 23:10 03:10 Temp 98.2 98.4 98.1 98.2 98.4 98.1 Pulse 97 92 93 Resp 20 18 18 B/P (MAP) 143/87 (105) 121/77 (92) 124/77 (93) Pulse Ox 99 99 99 O2 Delivery Room Air Room Air Room Air Room Air 02/03/19 02/03/19 02/03/19 07:00 08:00 08:32 Temp 98.5 98.5 Pulse 74 74 Resp 18 B/P (MAP) 104/60 (75) 104/60 Pulse Ox 97 O2 Delivery Room Air Room Air Intake and Output 02/02/19 02/02/19 02/03/19 14:59 22:59 06:59 Intake Total 860 ml 600 ml 1200 ml Balance 860 ml 600 ml 1200 ml DAMIAN WOODARD MD Feb 03, 2019 10:16
--- NOTE | 2019-02-03 10:46 | PDOC ---
SUBJECTIVE ROS Stable OBJECTIVE Vital Signs Vital Signs Date Time Temp Pulse Resp B/P (MAP) Pulse Ox O2 Delivery O2 Flow Rate FiO2 02/03/19 08:32 74 104/60 02/03/19 08:00 Room Air 02/03/19 07:00 98.5 18 97 98.5 I & 0 Intake and Output 02/03/19 06:59 Intake Total 2660 ml Balance 2660 ml Intake Oral 1660 ml IV Total 1000 ml # Voids 4 PHYSICAL EXAM Physical Exam Gen.: no acute distress HEENT: mucous membranes moist Neck: Supple, Lungs: CTA Abdomen: Soft, nontender, Extremities: BLE edema Skin: erythema BLE Neuro: Alert and oriented �3 DIAGNOSIS/ASSESSMENT Assessment & Plan JINA -Cr peaked at 3 Improving renal function E-lytes stable CKD stage 3 baseline Cr 1.5-2.0 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 HX of Orthostasis Hip Bursitis Recommend routine follow up with our office for CKD Discussed with Pt and RN Renal US- Moderate renal cortical atrophy. No hydronephrosis. 2 cm simple cyst of the right renal midpole incompletely visualized due to bowel gas shadowing limiting visualization of a portion of the cyst. This is classified Bosniak 2F. Consider six-month follow-up to document stability. COMMENT/RELEVANT DATA Meds Current Medications Medications (Trade) Dose Ordered Sig/Bisi Start Time Stop Time Status Last Admin Dose Admin Acetaminophen (Tylenol) 1,000 mg PRN Q6HRS PRN 02/01/19 12:30 02/02/19 21:30 1,000 MG Dexamethasone (Decadron) 10 mg 1X ONCE 01/30/19 21:30 01/30/19 21:31 DC 01/30/19 21:23 10 MG Famotidine (Pepcid) 20 mg PRN DAILY PRN 01/31/19 09:00 Midodrine (Proamatine) 10 mg TIDWMEALS 01/31/19 12:00 02/03/19 08:32 10 MG Ondansetron HCl (Zofran) 4 mg PRN Q8HRS PRN 01/30/19 23:00 01/31/19 22:59 DC 01/31/19 02:37 4 MG Orphenadrine Citrate (Norflex) 60 mg 1X ONCE 01/30/19 21:30 01/30/19 21:31 DC 01/30/19 21:23 60 MG Oxycodone/ Acetaminophen (Percocet 5/325) 1 tab PRN Q4HRS PRN 01/31/19 01:00 Sodium Chloride 1,000 ml @ 75 mls/hr [id number] 02/02/19 13:00 02/03/19 03:21 75 MLS/HR Thiamine Mononitrate (Vitamin B-1) 100 mg DAILY 01/31/19 15:00 02/03/19 08:32 100 MG Trazodone HCl (Desyrel) 50 mg 1X ONCE 01/31/19 01:30 01/31/19 01:31 DC 01/31/19 01:30 50 MG Lab Laboratory Tests Test 02/02/19 13:10 02/03/19 04:05 Urine Collection Type Unknown Urine Color Yellow Urine Clarity Clear Urine pH 5.0 Urine Specific [place] 1.020 Urine Protein Negative mg/dL (NEG-TRACE) Urine Glucose (UA) 500 mg/dL (NEG) Urine Ketones (Stick) Negative mg/dL (NEG) Urine Blood Small (NEG) Urine Nitrite Negative (NEG) Urine Bilirubin Negative (NEG) Urine Urobilinogen Dipstick 1.0 mg/dL (0.2 mg/dL) Urine Leukocyte Esterase Negative (NEG) Urine RBC 0 /HPF (0-2) Urine WBC 1-4 /HPF (0-4) Urine Squamous Epithelial Cells Few /LPF Urine Bacteria 0 /HPF (0-FEW) Urine Hyaline Casts Moderate /HPF Urine Mucus Slight /LPF White Blood Count 6.1 x10^3/uL (4.0-11.0) Red Blood Count 3.16 x10^6/uL (4.30-5.70) Hemoglobin 11.4 g/dL (13.0-17.5) Hematocrit 32.9 % (39.0-53.0) Mean Corpuscular Volume 104 fL (79-100) Mean Corpuscular Hemoglobin 36 pg (25-35) Mean Corpuscular Hemoglobin Concent 35 g/dL (31-37) Red Cell Distribution Width 14.9 % (11.5-14.5) Platelet Count 94 x10^3/uL (140-400) Sodium Level 132 mmol/L (136-145) Potassium Level 4.6 mmol/L (3.5-5.1) Chloride Level 98 mmol/L (98-107) Carbon Dioxide Level 21 mmol/L (21-32) Anion Gap 13 (6-14) Blood Urea Nitrogen 62 mg/dL (8-26) Creatinine 2.3 mg/dL (0.7-1.3) Estimated GFR (Cockcroft-Gault) 27.7 Glucose Level 148 mg/dL (70-99) Calcium Level 8.9 mg/dL (8.5-10.1) Results All relevant outside records, renal labs, imaging studies, telemetry/EKG's were reviewed. JAROCHO RIOS MD Feb 03, 2019 10:46
--- NOTE | 2019-02-03 10:58 | NUR ---
SS following up with discharge planning. Pt is currently on room air and is accepted at [facility], ; fax [phone], pending insurance authorization. [facility] contacted SS and stated that [employer] needs updated OT note. SS currently awaiting OT note at this time and will send once received. SS will await insurance determination and will proceed accordingly with discharge planning.
[2019-02-03 11:00] VITALS: BP 142/69
--- NOTE | 2019-02-03 13:11 | SNU/HH DC ---
DISCHARGE ORDERS DISCHARGE INFORMATION: FINAL DIAGNOSIS Problems Medical Problems: (1) Acute on chronic renal insufficiency Status: Acute (2) JINA (acute kidney injury) Status: Acute (3) Arthritis Status: Acute (4) Back pain Status: Acute (5) Bursitis Status: Acute (6) CKD (chronic kidney disease), stage III Status: Chronic (7) Degenerative disk disease Status: Chronic (8) Degenerative joint disease Status: Chronic (9) Diabetes mellitus Status: Chronic (10) Generalized weakness Status: Acute (11) Hip pain Status: Acute (12) IT band syndrome Status: Acute (13) Orthostasis Status: Acute (14) Orthostatic hypotension Status: Acute (15) Unable to ambulate Status: Acute CONDITION ON DISCHARGE: Stable CODE STATUS: Code Status: Full LONGTERM: SNF STAY <30 DAYS: Yes HOSPICE: HOSPICE: No HOSPICE EVAL & TREAT: No LTAC: ADMIT TO LTAC: No POST DISCHARGE ORDERS: ACTIVITY ORDERS: Activity as tolerated WEIGHT BEARING STATUS: As tolerated DIET AFTER DISCHARGE: Cardiac CHECKS AFTER DISCHARGE: CHECKS AFTER DISCHARGE: Check blood press - daily TREATMENT/EQUIPMENT ORDERS: ADAPTIVE EQUIPMENT NEEDED: None Physical Therapy For: Evalulation/Treatment Occupational Therapy For: Evaluation/Treatment Speech Language Pathology For: Evaluation/Treatment DISCHARGE MEDICATIONS: Home Meds Active Scripts Acetaminophen (TYLENOL) 325 Mg Tablet, 650 MG PO PRN Q6HRS PRN for MILD PAIN / TEMP, #30 TAB Prov:EL HAGEN MD 07/13/17 Reported Medications Midodrine Hcl (MIDODRINE HCL) 10 Mg Tablet, 10 MG PO TID for hypotension, TAB 02/01/19 Ranitidine Hcl (RANITIDINE HCL) 75 Mg Tablet, 75 MG PO PRN PRN for HEARTBURN / GAS, TAB 01/29/19 Trazodone Hcl (TRAZODONE HCL) 50 Mg Tablet, 50 MG PO HS for sleep, TAB 01/29/19 Discontinued Reported Medications Midodrine Hcl (MIDODRINE HCL) 5 Mg Tablet, 5 MG PO TID for Hypotension, TAB 01/29/19 Ranitidine Hcl (RANITIDINE HCL) 150 Mg Capsule, 150 MG PO DAILY, TAB 07/10/17 Discontinued Scripts Prednisone (PREDNISONE) 20 Mg Tablet, 2 TAB PO DAILY, #8 TAB Start this medication tomorrow, 01/31/19 Prov:ALVIN BENSON DO 01/30/19 Orphenadrine Citrate (ORPHENADRINE CITRATE) 100 Mg Tablet.er, 100 MG PO BID, #14 Prov:ALVIN BENSON DO 01/30/19 SHANDA COULTER III DO Feb 03, 2019 13:11
--- NOTE | 2019-02-03 13:45 | PDOC ---
PROGRESS NOTES Subjective Subjective See [facility] next progress note Objective Objective Vital Signs Date Time Temp Pulse Resp B/P (MAP) Pulse Ox O2 Delivery O2 Flow Rate FiO2 02/03/19 12:35 101 142/69 02/03/19 11:00 98.0 18 96 Room Air 98.0 Intake and Output 02/03/19 06:59 Intake Total 2660 ml Balance 2660 ml Intake Oral 1660 ml IV Total 1000 ml # Voids 4 Assessment Assessment Problems Medical Problems: (1) Acute on chronic renal insufficiency Status: Acute (2) JINA (acute kidney injury) Status: Acute (3) Arthritis Status: Acute (4) Back pain Status: Acute (5) Bursitis Status: Acute (6) CKD (chronic kidney disease), stage III Status: Chronic (7) Degenerative disk disease Status: Chronic (8) Degenerative joint disease Status: Chronic (9) Diabetes mellitus Status: Chronic (10) Generalized weakness Status: Acute (11) Hip pain Status: Acute (12) IT band syndrome Status: Acute (13) Orthostasis Status: Acute (14) Orthostatic hypotension Status: Acute (15) Unable to ambulate Status: Acute Comment Review of Relevant I have reviewed the following items chelsea (where applicable) has been applied. Labs Laboratory Tests Test 02/02/19 09:20 02/02/19 13:10 02/03/19 04:05 Sodium Level 133 mmol/L (136-145) 132 mmol/L (136-145) Potassium Level 4.6 mmol/L (3.5-5.1) 4.6 mmol/L (3.5-5.1) Chloride Level 97 mmol/L (98-107) 98 mmol/L (98-107) Carbon Dioxide Level 24 mmol/L (21-32) 21 mmol/L (21-32) Anion Gap 12 (6-14) 13 (6-14) Blood Urea Nitrogen 70 mg/dL (8-26) 62 mg/dL (8-26) Creatinine 2.6 mg/dL (0.7-1.3) 2.3 mg/dL (0.7-1.3) Estimated GFR (Cockcroft-Gault) 24.1 27.7 Glucose Level 260 mg/dL (70-99) 148 mg/dL (70-99) Calcium Level 8.8 mg/dL (8.5-10.1) 8.9 mg/dL (8.5-10.1) Urine Collection Type Unknown Urine Color Yellow Urine Clarity Clear Urine pH 5.0 Urine Specific [place] 1.020 Urine Protein Negative mg/dL (NEG-TRACE) Urine Glucose (UA) 500 mg/dL (NEG) Urine Ketones (Stick) Negative mg/dL (NEG) Urine Blood Small (NEG) Urine Nitrite Negative (NEG) Urine Bilirubin Negative (NEG) Urine Urobilinogen Dipstick 1.0 mg/dL (0.2 mg/dL) Urine Leukocyte Esterase Negative (NEG) Urine RBC 0 /HPF (0-2) Urine WBC 1-4 /HPF (0-4) Urine Squamous Epithelial Cells Few /LPF Urine Bacteria 0 /HPF (0-FEW) Urine Hyaline Casts Moderate /HPF Urine Mucus Slight /LPF White Blood Count 6.1 x10^3/uL (4.0-11.0) Red Blood Count 3.16 x10^6/uL (4.30-5.70) Hemoglobin 11.4 g/dL (13.0-17.5) Hematocrit 32.9 % (39.0-53.0) Mean Corpuscular Volume 104 fL (79-100) Mean Corpuscular Hemoglobin 36 pg (25-35) Mean Corpuscular Hemoglobin Concent 35 g/dL (31-37) Red Cell Distribution Width 14.9 % (11.5-14.5) Platelet Count 94 x10^3/uL (140-400) Laboratory Tests Test 02/03/19 04:05 White Blood Count 6.1 x10^3/uL (4.0-11.0) Red Blood Count 3.16 x10^6/uL (4.30-5.70) Hemoglobin 11.4 g/dL (13.0-17.5) Hematocrit 32.9 % (39.0-53.0) Mean Corpuscular Volume 104 fL (79-100) Mean Corpuscular Hemoglobin 36 pg (25-35) Mean Corpuscular Hemoglobin Concent 35 g/dL (31-37) Red Cell Distribution Width 14.9 % (11.5-14.5) Platelet Count 94 x10^3/uL (140-400) Sodium Level 132 mmol/L (136-145) Potassium Level 4.6 mmol/L (3.5-5.1) Chloride Level 98 mmol/L (98-107) Carbon Dioxide Level 21 mmol/L (21-32) Anion Gap 13 (6-14) Blood Urea Nitrogen 62 mg/dL (8-26) Creatinine 2.3 mg/dL (0.7-1.3) Estimated GFR (Cockcroft-Gault) 27.7 Glucose Level 148 mg/dL (70-99) Calcium Level 8.9 mg/dL (8.5-10.1) Medications Current Medications Orphenadrine Citrate (Norflex) 60 mg 1X ONCE IM Last administered on 01/30/19 21:23; Start 01/30/19 at 21:30; Stop 01/30/19 at 21:31; Status DC Dexamethasone (Decadron) 10 mg 1X ONCE PO Last administered on 01/30/19 21:23; Start 01/30/19 at 21:30; Stop 01/30/19 at 21:31; Status DC Ondansetron HCl (Zofran) 4 mg PRN Q8HRS PRN IV NAUSEA/VOMITING 1ST CHOICE Last administered on 01/31/19at 02:37; Start 01/30/19 at 23:00; Stop 01/31/19 at 22: 59; Status DC Sodium Chloride 1,000 ml @ 100 mls/hr 1X ONCE IV Last administered on 01/31/19at 01:17; Start 01/31/19 at 00:15; Stop 01/31/19 at 10:14; Status DC Oxycodone/ Acetaminophen (Percocet 5/325) 1 tab PRN Q4HRS PRN PO SEVERE PAIN 7- 10; Start 01/31/19 at 01:00 Acetaminophen (Tylenol) 650 mg PRN Q6HRS PRN PO MILD PAIN / TEMP Last administered on 01/31/19 01:30; Start 01/31/19 at 01:15; Stop 01/31/19 at 10:13; Status DC Midodrine (Proamatine) 5 mg TIDWMEALS PO Last administered on 01/31/19at 10:13; Start 01/31/19 at 08:00; Stop 01/31/19 at 10:13; Status DC Trazodone HCl (Desyrel) 50 mg HS PO Last administered on 02/02/19at 23:31; Start 01/31/19 at 21:00 Famotidine (Pepcid) 20 mg PRN DAILY PRN PO HEARTBURN / GAS; Start 01/31/19 at 09:00 Trazodone HCl (Desyrel) 50 mg 1X ONCE PO Last administered on 01/31/19at 01:30; Start 01/31/19 at 01:30; Stop 01/31/19 at 01:31; Status DC Midodrine (Proamatine) 10 mg TIDWMEALS PO Last administered on 02/03/19at 12:35; Start 01/31/19 at 12:00 Acetaminophen (Tylenol) 500 mg PRN Q6HRS PRN PO MILD PAIN / TEMP Last administered on 02/01/19at 10:03; Start 01/31/19 at 10:00; Stop 02/01/19 at 12:19; Status DC Sodium Chloride 1,000 ml @ 100 mls/hr Q10H IV Last administered on 02/01/19at 01:22; Start 01/31/19 at 13:30; Stop 02/01/19 at 11:00; Status DC Thiamine Mononitrate (Vitamin B-1) 100 mg DAILY PO Last administered on 02/03/19at 08:32; Start 01/31/19 at 15:00 Acetaminophen (Tylenol) 1,000 mg PRN Q6HRS PRN PO PAIN Last administered on 02/02/19at 21:30; Start 02/01/19 at 12:30 Sodium Chloride 1,000 ml @ 75 mls/hr [id number] IV Last administered on 02/03/19at 03:21; Start 02/02/19 at 13:00 Active Scripts Active Tylenol (Acetaminophen) 325 Mg Tablet 650 Mg PO PRN Q6HRS PRN Reported Midodrine Hcl 10 Mg Tablet 10 Mg PO TID Ranitidine Hcl 75 Mg Tablet 75 Mg PO PRN PRN Trazodone Hcl 50 Mg Tablet 50 Mg PO HS Vitals/I & O Vital Sign - Last 24 Hours 02/02/19 02/02/19 02/02/19 02/02/19 15:10 17:22 19:10 20:11 Temp 97.6 98.2 97.6 98.2 Pulse 90 90 97 Resp 18 20 B/P (MAP) 124/62 (82) 124/62 143/87 (105) Pulse Ox 100 99 O2 Delivery Room Air Room Air Room Air 02/02/19 02/03/19 02/03/19 02/03/19 23:10 03:10 07:00 08:00 Temp 98.4 98.1 98.5 98.4 98.1 98.5 Pulse 92 93 74 Resp 18 18 18 B/P (MAP) 121/77 (92) 124/77 (93) 104/60 (75) Pulse Ox 99 99 97 O2 Delivery Room Air Room Air Room Air Room Air 02/03/19 02/03/19 02/03/19 08:32 11:00 12:35 Temp 98.0 98.0 Pulse 74 101 101 Resp 18 B/P (MAP) 104/60 142/69 (93) 142/69 Pulse Ox 96 O2 Delivery Room Air Intake and Output 02/02/19 02/02/19 02/03/19 14:59 22:59 06:59 Intake Total 860 ml 600 ml 1200 ml Balance 860 ml 600 ml 1200 ml SHANDA COULTER III DO Feb 03, 2019 13:45
--- NOTE | 2019-02-03 13:54 | PDOC ---
[facility] PROGRESS NOTE Chief Complaint Chief Complaint Orthostatic hypotension [id number] renal insufficiency Hip pain Prior hx of PE Vasectomy History of Present Illness History of Present Illness 02/03/19 Pt seen and examined Pt awake and alert and talking comfortably without any acute distress After we left, he had a near syncope with SOA VIELKA RN and case mgmt several times today Ordered LE dopplars and VQ 02/02/19 Pt seen and examined (in no acute distress; BP stable) Cr trending down (2.6 today compared to 3.0 yesterday) Chart reviewed VIELKA RN 02/01/19 Pt seen and examined (well-appearing and in no acute distress; BP remains stable) Chart reviewed VIELKA RN Vitals/I&O Vitals/I&O: Vital Signs Date Time Temp Pulse Resp B/P (MAP) Pulse Ox O2 Delivery O2 Flow Rate FiO2 02/03/19 12:35 101 142/69 02/03/19 11:00 98.0 18 96 Room Air 98.0 I & O 02/02/19 02/02/19 02/03/19 15:00 23:00 07:00 Intake Total 860 ml 600 ml 1200 ml Balance 860 ml 600 ml 1200 ml Physical Exam General: Alert, Oriented X3, Cooperative, No acute distress Heart: Regular rate, Normal S1, Normal S2 Lungs: Clear Abdomen: Normal bowel sounds, No tenderness Extremities: No clubbing, No cyanosis Skin: No breakdown Labs Labs: Laboratory Tests Test 02/03/19 04:05 White Blood Count 6.1 x10^3/uL (4.0-11.0) Red Blood Count 3.16 x10^6/uL (4.30-5.70) Hemoglobin 11.4 g/dL (13.0-17.5) Hematocrit 32.9 % (39.0-53.0) Mean Corpuscular Volume 104 fL (79-100) Mean Corpuscular Hemoglobin 36 pg (25-35) Mean Corpuscular Hemoglobin Concent 35 g/dL (31-37) Red Cell Distribution Width 14.9 % (11.5-14.5) Platelet Count 94 x10^3/uL (140-400) Sodium Level 132 mmol/L (136-145) Potassium Level 4.6 mmol/L (3.5-5.1) Chloride Level 98 mmol/L (98-107) Carbon Dioxide Level 21 mmol/L (21-32) Anion Gap 13 (6-14) Blood Urea Nitrogen 62 mg/dL (8-26) Creatinine 2.3 mg/dL (0.7-1.3) Estimated GFR (Cockcroft-Gault) 27.7 Glucose Level 148 mg/dL (70-99) Calcium Level 8.9 mg/dL (8.5-10.1) Review of Systems Review of Systems: no abdominal pain no change of vision Assessment and Plan Assessmemt and Plan Problems Medical Problems: (1) Acute on chronic renal insufficiency Status: Acute (2) JINA (acute kidney injury) Status: Acute (3) Arthritis Status: Acute (4) Back pain Status: Acute (5) Bursitis Status: Acute (6) CKD (chronic kidney disease), stage III Status: Chronic (7) Degenerative disk disease Status: Chronic (8) Degenerative joint disease Status: Chronic (9) Diabetes mellitus Status: Chronic (10) Generalized weakness Status: Acute (11) Hip pain Status: Acute (12) IT band syndrome Status: Acute (13) Orthostasis Status: Acute (14) Orthostatic hypotension Status: Acute (15) Unable to ambulate Status: Acute Assessment: Bilat DVTs Orthostatic hypotension Dpmaz-jw-yudhrnn renal insufficiency Hip pain Prior hx of PE Vasectomy Plan: Add lovenox 1mg/kg q 12 hours Coumadin per Phar Consult Pulm IV fluids (1/2 NS 75 cc/hr) Trend Cr Continue Midodrine 10 mg Await final nephrology input (Dr. Anand) PT/OT Home meds Comment Review of Relevant I have reviewed the following items chelsea (where applicable) has been applied. SHANDA COULTER III DO Feb 03, 2019 13:54
[2019-02-03 15:00] VITALS: BP 149/69
--- NOTE | 2019-02-03 15:59 | RAD ---
CHEST PA LATERAL CLINICAL INDICATION: Shortness of breath. COMPARISON: None FINDINGS: Heart is normal in size. Lungs are clear. No pneumothorax or pleural effusion. Visualized bony thorax is within normal limits. IMPRESSION: No acute pulmonary process. Electronically signed by: Brayden Rousseau DO (02/03/2019 3:56 PM) [facility]
--- NOTE | 2019-02-03 16:03 | NUR ---
During pt,ot therapists reported that pt's 02 sats dropped to 86% and hr decreased to 61,pt with symptoms of sob. Also c/o pain and increased swelling in destiny le's right greater than left, also bp dropped to 80's,and pt symptomatic reported light headed. Sat improved at rest to 100% room air and heart rate and bp improved. Dr De La Torre notified of symptoms and orders received. See 's orders.
--- NOTE | 2019-02-03 16:04 | RAD ---
NUCLEAR MEDICINE VENTILATION PERFUSION SCAN History: Dyspnea Comparison: Two-view chest, same day. Technique: Patient initially ventilated with 9 mCi of xenon-133 gas. Anterior and posterior imaging of the lungs during initial breath-hold, equilibrium and, washout phase images is performed. Perfusion portion performed after intravenous administration of 5.5 mCi Technetium 99m MAA. Multiple projection planar images of the lungs were obtained. Findings: The initial breath-hold ventilation images are homogeneous. There is no retention of tracer on the washout phase images. Perfusion images demonstrate no mismatched segmental perfusion defects. IMPRESSION: Normal VQ scan. Negative for pulmonary embolism. Electronically signed by: Taran Grant MD (02/03/2019 4:01 PM) [id number]
--- NOTE | 2019-02-03 16:37 | RAD ---
Bilateral lower extremity venous Doppler ultrasound History: Bilateral lower extremity edema. Comparison: None. Procedure: Color flow Doppler, Doppler spectral analysis, and 2D images are obtained with and without compression in the area of the common femoral vein, superficial femoral vein - femoral vein junction, main femoral vein (superficial femoral vein) and popliteal vein. Veins of the proximal calf are also imaged. Findings: There is occlusive thrombus in the bilateral common femoral veins, superficial femoral veins, and popliteal veins. These segments are noncompressible. Color Doppler demonstrates absent flow. There is occlusive thrombus in the proximal greater saphenous veins bilaterally. The posterior tibial veins are noted to be patent bilaterally. IMPRESSION: Right and left lower extremity are positive for DVT. Electronically signed by: Taran Grant MD (02/03/2019 4:34 PM) [id number]
--- NOTE | 2019-02-03 18:09 | NUR ---
Pt informed he has DVT's destiny legs and Dr De La Torre has ordered blood thinner shots to treat. Pt stated he is unable to take blood thinners due to severe projectile bleeding from his nose in 05/2017 and that is when ivc filter was placed. 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 Spoke with Dr Davis and informed him about history of severe bleeding in 2017 due to anticoagulation and the prescence of IVC filter. Dr Davis gave order to dc anticoagulation due to IVC filter.
--- NOTE | 2019-02-03 18:34 | NUR ---
Dr Bishop returned call for Dr Andersen,informed him of hematology consult and Dr Cassidy orders to stop anticoagulant and he stated he will have Dr Andersen see pt in the am to reevaluate possible need for anticoagulation.
[2019-02-03 19:51] VITALS: BP 135/86
[2019-02-03] MEDS: ACETAMINOPHEN 500 MG TABLET PO PRN (20:05)
[2019-02-03] MEDS: traZODone 50 MG TABLET. PO SCH (22:19)
[2019-02-03] MEDS: TRIAMCINOLONE ACETONIDE 0.1% TOPICAL CREAM 15GM TUBE. TP SCH (22:19)
[2019-02-03 23:15] VITALS: BP 132/72
[2019-02-04 03:25] VITALS: BP 112/73
[2019-02-04 04:39] LABS: PROTHROMBIN TIME PATIENT 13.7 SEC (11.7-14.0)
[2019-02-04 04:52] LABS: CALCIUM 9.1 mg/dL (8.5-10.1); GFR 32.6; POTASSIUM 4.9 mmol/L (3.5-5.1)
[2019-02-04] MEDS: IV 1/2 NORMAL SALINE 1,000 ML IV SCH (06:26)
[2019-02-04 07:00] VITALS: BP 113/68
[2019-02-04] MEDS: THIAMINE 100 MG TABLET. PO SCH (08:33)
[2019-02-04] MEDS: MIDODRINE 5 MG TABLET PO SCH ×3 (08:33→16:40)
[2019-02-04] MEDS: TRIAMCINOLONE ACETONIDE 0.1% TOPICAL CREAM 15GM TUBE. TP SCH (08:34)
--- NOTE | 2019-02-04 08:35 | NUR ---
[facility] following pt. Faxed updates to [employer]. Insurance auth pending. Will continue to follow.
--- NOTE | 2019-02-04 09:09 | PDOC ---
PROGRESS NOTES Subjective Subjective He denies any pain. Objective Objective Vital Signs Date Time Temp Pulse Resp B/P (MAP) Pulse Ox O2 Delivery O2 Flow Rate FiO2 02/04/19 08:34 104 113/68 02/04/19 07:00 98.2 20 100 Room Air 98.2 Intake and Output 02/04/19 06:59 Intake Total 600 ml Balance 600 ml Intake Oral 600 ml # Voids 3 Physical Exam Physical Exam He is sitting in bedside chair and he continues with bilateral lower extremity edema without calf tenderness and positive for DVT and he had problems with nasal bleeding while on anticoagulation in the past. Assessment Assessment Problems Medical Problems: (1) Acute on chronic renal insufficiency Status: Acute (2) JINA (acute kidney injury) Status: Acute (3) Arthritis Status: Acute (4) Back pain Status: Acute (5) Bursitis Status: Acute (6) CKD (chronic kidney disease), stage III Status: Chronic (7) Degenerative disk disease Status: Chronic (8) Degenerative joint disease Status: Chronic (9) Diabetes mellitus Status: Chronic (10) Generalized weakness Status: Acute (11) Hip pain Status: Acute (12) IT band syndrome Status: Acute (13) Orthostasis Status: Acute (14) Orthostatic hypotension Status: Acute (15) Unable to ambulate Status: Acute Plan Plan of Care He may be a candidate for inferior vena cava filter placement. Comment Review of Relevant I have reviewed the following items chelsea (where applicable) has been applied. Labs Laboratory Tests Test 02/02/19 09:20 02/02/19 13:10 02/03/19 04:05 02/04/19 04:05 Sodium Level 133 mmol/L (136-145) 132 mmol/L (136-145) 136 mmol/L (136-145) Potassium Level 4.6 mmol/L (3.5-5.1) 4.6 mmol/L (3.5-5.1) 4.9 mmol/L (3.5-5.1) Chloride Level 97 mmol/L (98-107) 98 mmol/L (98-107) 100 mmol/L (98-107) Carbon Dioxide Level 24 mmol/L (21-32) 21 mmol/L (21-32) 25 mmol/L (21-32) Anion Gap 12 (6-14) 13 (6-14) 11 (6-14) Blood Urea Nitrogen 70 mg/dL (8-26) 62 mg/dL (8-26) 54 mg/dL (8-26) Creatinine 2.6 mg/dL (0.7-1.3) 2.3 mg/dL (0.7-1.3) 2.0 mg/dL (0.7-1.3) Estimated GFR (Cockcroft-Gault) 24.1 27.7 32.6 Glucose Level 260 mg/dL (70-99) 148 mg/dL (70-99) 127 mg/dL (70-99) Calcium Level 8.8 mg/dL (8.5-10.1) 8.9 mg/dL (8.5-10.1) 9.1 mg/dL (8.5-10.1) Urine Collection Type Unknown Urine Color Yellow Urine Clarity Clear Urine pH 5.0 Urine Specific [place] 1.020 Urine Protein Negative mg/dL (NEG-TRACE) Urine Glucose (UA) 500 mg/dL (NEG) Urine Ketones (Stick) Negative mg/dL (NEG) Urine Blood Small (NEG) Urine Nitrite Negative (NEG) Urine Bilirubin Negative (NEG) Urine Urobilinogen Dipstick 1.0 mg/dL (0.2 mg/dL) Urine Leukocyte Esterase Negative (NEG) Urine RBC 0 /HPF (0-2) Urine WBC 1-4 /HPF (0-4) Urine Squamous Epithelial Cells Few /LPF Urine Bacteria 0 /HPF (0-FEW) Urine Hyaline Casts Moderate /HPF Urine Mucus Slight /LPF White Blood Count 6.1 x10^3/uL (4.0-11.0) Red Blood Count 3.16 x10^6/uL (4.30-5.70) Hemoglobin 11.4 g/dL (13.0-17.5) Hematocrit 32.9 % (39.0-53.0) Mean Corpuscular Volume 104 fL (79-100) Mean Corpuscular Hemoglobin 36 pg (25-35) Mean Corpuscular Hemoglobin Concent 35 g/dL (31-37) Red Cell Distribution Width 14.9 % (11.5-14.5) Platelet Count 94 x10^3/uL (140-400) Prothrombin Time 13.7 SEC (11.7-14.0) Prothromb Time International Ratio 1.1 (0.8-1.1) Laboratory Tests Test 02/04/19 04:05 Prothrombin Time 13.7 SEC (11.7-14.0) Prothromb Time International Ratio 1.1 (0.8-1.1) Sodium Level 136 mmol/L (136-145) Potassium Level 4.9 mmol/L (3.5-5.1) Chloride Level 100 mmol/L (98-107) Carbon Dioxide Level 25 mmol/L (21-32) Anion Gap 11 (6-14) Blood Urea Nitrogen 54 mg/dL (8-26) Creatinine 2.0 mg/dL (0.7-1.3) Estimated GFR (Cockcroft-Gault) 32.6 Glucose Level 127 mg/dL (70-99) Calcium Level 9.1 mg/dL (8.5-10.1) Medications Current Medications Orphenadrine Citrate (Norflex) 60 mg 1X ONCE IM Last administered on 01/30/19at 21:23; Start 01/30/19 at 21:30; Stop 01/30/19 at 21:31; Status DC Dexamethasone (Decadron) 10 mg 1X ONCE PO Last administered on 01/30/19at 21:23; Start 01/30/19 at 21:30; Stop 01/30/19 at 21:31; Status DC Ondansetron HCl (Zofran) 4 mg PRN Q8HRS PRN IV NAUSEA/VOMITING 1ST CHOICE Last administered on 01/31/19at 02:37; Start 01/30/19 at 23:00; Stop 01/31/19 at 22:59; Status DC Sodium Chloride 1,000 ml @ 100 mls/hr 1X ONCE IV Last administered on 01/31/19at 01:17; Start 01/31/19 at 00:15; Stop 01/31/19 at 10:14; Status DC Oxycodone/ Acetaminophen (Percocet 5/325) 1 tab PRN Q4HRS PRN PO MODERATE - SE SCAR PAIN; Start 01/31/19 at 01:00 Acetaminophen (Tylenol) 650 mg PRN Q6HRS PRN PO MILD PAIN / TEMP Last administered on 01/31/19at 01:30; Start 01/31/19 at 01:15; Stop 01/31/19 at 10:13; Status DC Midodrine (Proamatine) 5 mg TIDWMEALS PO Last administered on 01/31/19 10:13; Start 01/31/19 at 08:00; Stop 01/31/19 at 10:13; Status DC Trazodone HCl (Desyrel) 50 mg HS PO Last administered on 02/03/19at 22:19; Start 01/31/19 at 21:00 Famotidine (Pepcid) 20 mg PRN DAILY PRN PO HEARTBURN / GAS; Start 01/31/19 at 09:00 Trazodone HCl (Desyrel) 50 mg 1X ONCE PO Last administered on 01/31/19 01:30; Start 01/31/19 at 01:30; Stop 01/31/19 at 01:31; Status DC Midodrine (Proamatine) 10 mg TIDWMEALS PO Last administered on 02/04/19 08:34; Start 01/31/19 at 12:00 Acetaminophen (Tylenol) 500 mg PRN Q6HRS PRN PO MILD PAIN / TEMP Last administered on 02/01/19at 10:03; Start 01/31/19 at 10:00; Stop 02/01/19 at 12:19; Status DC Sodium Chloride 1,000 ml @ 100 mls/hr Q10H IV Last administered on 02/01/19 01:22; Start 01/31/19 at 13:30; Stop 02/01/19 at 11:00; Status DC Thiamine Mononitrate (Vitamin B-1) 100 mg DAILY PO Last administered on 02/04/19 08:34; Start 01/31/19 at 15:00 Acetaminophen (Tylenol) 1,000 mg PRN Q6HRS PRN PO MILD PAIN 1-3 Last administered on 02/03/19 20:06; Start 02/01/19 at 12:30 Sodium Chloride 1,000 ml @ 75 mls/hr [id number] IV Last administered on 02/04/19at 06:26; Start 02/02/19 at 13:00 Triamcinolone Acetonide (Kenalog 0.1%) 1 arpita BID TP Last administered on 02/04/19at 08:34; Start 02/03/19 at 21:00 Enoxaparin Sodium (Lovenox Per Pharmacy Treatment Dosing) 1 each Q12HR MC ; Start 02/03/19 at 17:15; Stop 02/03/19 at 18:10; Status DC Enoxaparin Sodium (Lovenox 100mg Syringe) 90 mg Q12HR SQ ; Start 02/03/19 at 18:00; Stop 02/03/19 at 18:10; Status DC Warfarin Sodium (Coumadin Per Pharmacy) 1 each PRN DAILY PRN MC SEE COMMENTS; Start 02/04/19 at 16:00; Stop 02/03/19 at 18:10; Status DC Active Scripts Active Tylenol (Acetaminophen) 325 Mg Tablet 650 Mg PO PRN Q6HRS PRN Reported Midodrine Hcl 10 Mg Tablet 10 Mg PO TID Ranitidine Hcl 75 Mg Tablet 75 Mg PO PRN PRN Trazodone Hcl 50 Mg Tablet 50 Mg PO HS Vitals/I & O Vital Sign - Last 24 Hours 02/03/19 02/03/19 02/03/19 02/03/19 11:00 12:35 15:00 16:43 Temp 98.0 97.8 98.0 97.8 Pulse 101 101 88 101 Resp 18 18 B/P (MAP) 142/69 (93) 142/69 149/69 (95) 142/69 Pulse Ox 96 99 O2 Delivery Room Air Room Air 02/03/19 02/03/19 02/03/19 02/04/19 19:51 20:00 23:15 03:25 Temp 97.8 98.7 98.8 97.8 98.7 98.8 Pulse 95 100 106 Resp 20 18 20 B/P (MAP) 135/86 (102) 132/72 (92) 112/73 (86) Pulse Ox 100 99 100 O2 Delivery Room Air Room Air Room Air Room Air 02/04/19 02/04/19 07:00 08:34 Temp 98.2 98.2 Pulse 104 104 Resp 20 B/P (MAP) 113/68 (83) 113/68 Pulse Ox 100 O2 Delivery Room Air Intake and Output 02/03/19 02/03/19 02/04/19 14:59 22:59 06:59 Intake Total 250 ml 350 ml Balance 250 ml 350 ml ZONIA WALKER MD Feb 04, 2019 09:09
[2019-02-04] MEDS ORDERED: DOCUSATE SODIUM 100 MG CAPSULE. PO PRN (09:45)
[2019-02-04] MEDS ORDERED: POLYETHYLENE GLYCOL 3350 17 GM PACKET. PO PRN (09:45)
--- NOTE | 2019-02-04 09:49 | PDOC2 ---
CONSULT Date of Consult Date of Consult DATE: 02/04/19 TIME: 09:39 Reason for consultation: Clotting, history of bleeding Consult: Hematology oncology, Dr. Bert Ram History of present illness: He is a 78-year-old man with a history of PE in the past and an IVC filter in 2016, he also has a history of a groin hematoma, does not know if that was in relation to blood thinners for the PE or otherwise, is not sure if that was before or after filter was placed, also has a history of being admitted about a year and a half ago and having a heparin drip and eliquis and flooded his bathroom with bleeding, threw up, epistaxis, however does not have recurrent epistaxis. Never wants to try Apixaban again. Very hesitant to take any blood thinners. Recently admitted for hip pain after a prior admission for orthostasis, noted to have bilateral lower extremity DVT, acute, extending to both legs, assoc w/ swelling x a few days, w/ significant clot burden, not wanting treatment with blood thinners due to his history of bleeding on eliquis, worsened due to underlying poss hypercoagulability/recent hospitalization. We were consulted to assist with anticoagulation. 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 Family history: His dad of a blood clot in the hospital, heart disease, no known cancer Review of systems: Vomiting �1, constipation, dyspnea on exertion, tingling with lightheadedness recently, edema of bilateral lower extremities, some rash on his legs anxiety, otherwise 10 point review of systems negative Physical exam: Vitals reviewed Gen.: elderly man well-developed in no acute distress HEENT: mucous membranes moist, head normocephalic atraumatic Neck: Supple, no lymphadenopathy Lymph nodes: No palpable lymphadenopathy neck or axilla Lungs: Breathing comfortably on room air, no evidence of respiratory distress Abdomen: Soft, nontender, nondistended Extremities: No cyanosis, does have BLE pitting edema Skin: erythema BLE, some skin bleeding behind R knee Neuro: Alert and oriented �3 Psych: very impatient mood and affect Lab reviewed: White count 6.1, hemoglobin 11.4, platelets 94, had been 154,015 January in 180,000 on 28 January, hemoglobin had been 13.2 recently, INR 1.1, MCV of 104 Creatinine 2.0 AST 46 Normal B12 and TSH ESR of 29 Rads reviewed: Chest x-ray no acute cardiopulmonary disease VQ scan normal negative for PE Bilateral lower extremity ultrasound with bilateral lower extremity DVT, occlusive thrombus bilateral common femoral veins, superficial femoral veins, popliteal pains, and proximal greater saphenous veins Renal ultrasound showed Bosniak 2F cysts Bilateral hip x-rays showed moderate to severe degenerative changes L-spine MRI showed degenerative changes with stenosis Case discussed with: Patient, records [facility], including labs and radiology, please see note for summary details. Assessment and Plan: He is a 78-year-old man with history of bilateral lower extremity DVT, prior PE, prior IVC filter placement, prior bleeding on apixaban, admitted for hip pain after recent admission for orthostasis. Orthostasis: Per primary Hip pain: Per others Bilateral lower extremity DVT: has IVC filter, Significant clot burden, his father of a clot in the hospital, he has had recurrent thromboses, he does have a high risk for complication to related to these thromboses, would recommend Lovenox renally dosed daily as a bridge with Coumadin for a goal INR of 2-3, for at least 3 months and then consider indefinite based on history and tolerability Cancer screening: Recommend keeping up-to-date thru primary care Thrombocytopenia: With macrocytosis, due to alcohol? Recommend minimizing alcohol, cessation would be best, can check PTT and fibrinogen as well as SPEP and retic, recent B12 and TSH normal, would check CBC in a.m., we will not order anticoagulation as he would like to discuss this further with his Constipation: Colace and MiraLAX when necessary Disposition: After continued clinical improvement Renal insufficiency: Per primary Thank you kindly for this consultation, and please do not hesitate to call with further questions. Past Medical History Cardiovascular: HTN, Other Pulmonary: No pertinent hx CENTRAL NERVOUS SYSTEM: Other GI: GERD Heme/Onc: Other Hepatobiliary: No pertinent hx Psych: No pertinent hx Musculoskeletal: Other Rheumatologic: No pertinent hx Infectious disease: No pertinent hx Renal/: Chronic renal insuff Endocrine: Diabetes Past Surgical History Past Surgical History: Other Family History Family History: No Significant, Other Social History ALCOHOL: heavy Drugs: None Lives: with Family Current Problem List Problem List Problems Medical Problems: (1) Acute on chronic renal insufficiency Status: Acute (2) JINA (acute kidney injury) Status: Acute (3) Arthritis Status: Acute (4) Back pain Status: Acute (5) Bursitis Status: Acute (6) CKD (chronic kidney disease), stage III Status: Chronic (7) Degenerative disk disease Status: Chronic (8) Degenerative joint disease Status: Chronic (9) Diabetes mellitus Status: Chronic (10) Generalized weakness Status: Acute (11) Hip pain Status: Acute (12) IT band syndrome Status: Acute (13) Orthostasis Status: Acute (14) Orthostatic hypotension Status: Acute (15) Unable to ambulate Status: Acute Current Medications Current Medications Current Medications Orphenadrine Citrate (Norflex) 60 mg 1X ONCE IM Last administered on 01/30/19at 21:23; Start 01/30/19 at 21:30; Stop 01/30/19 at 21:31; Status DC Dexamethasone (Decadron) 10 mg 1X ONCE PO Last administered on 01/30/19at 21:23; Start 01/30/19 at 21:30; Stop 01/30/19 at 21:31; Status DC Ondansetron HCl (Zofran) 4 mg PRN Q8HRS PRN IV NAUSEA/VOMITING 1ST CHOICE Last administered on 01/31/19at 02:37; Start 01/30/19 at 23:00; Stop 01/31/19 at 22:59; Status DC Sodium Chloride 1,000 ml @ 100 mls/hr 1X ONCE IV Last administered on 01/31/19at 01:17; Start 01/31/19 at 00:15; Stop 01/31/19 at 10:14; Status DC Oxycodone/ Acetaminophen (Percocet 5/325) 1 tab PRN Q4HRS PRN PO MODERATE - SEVERE PAIN; Start 01/31/19 at 01:00 Acetaminophen (Tylenol) 650 mg PRN Q6HRS PRN PO MILD PAIN / TEMP Last administered on 01/31/19at 01:30; Start 01/31/19 at 01:15; Stop 01/31/19 at 10:13; Status DC Midodrine (Proamatine) 5 mg TIDWMEALS PO Last administered on 01/31/19at 10:13; Start 01/31/19 at 08:00; Stop 01/31/19 at 10:13; Status DC Trazodone HCl (Desyrel) 50 mg HS PO Last administered on 02/03/19at 22:19; Start 01/31/19 at 21:00 Famotidine (Pepcid) 20 mg PRN DAILY PRN PO HEARTBURN / GAS; Start 01/31/19 at 09:00 Trazodone HCl (Desyrel) 50 mg 1X ONCE PO Last administered on 01/31/19at 01:30; Start 01/31/19 at 01:30; Stop 01/31/19 at 01:31; Status DC Midodrine (Proamatine) 10 mg TIDWMEALS PO Last administered on 02/04/19at 08:34; Start 01/31/19 at 12:00 Acetaminophen (Tylenol) 500 mg PRN Q6HRS PRN PO MILD PAIN / TEMP Last administered on 02/01/19at 10:03; Start 01/31/19 at 10:00; Stop 02/01/19 at 12:19; Status DC Sodium Chloride 1,000 ml @ 100 mls/hr Q10H IV Last administered on 02/01/19at 01:22; Start 01/31/19 at 13:30; Stop 02/01/19 at 11:00; Status DC Thiamine Mononitrate (Vitamin B-1) 100 mg DAILY PO Last administered on 02/04/19at 08:34; Start 01/31/19 at 15:00 Acetaminophen (Tylenol) 1,000 mg PRN Q6HRS PRN PO MILD PAIN 1-3 Last administered on 02/03/19 20:06; Start 02/01/19 at 12:30 Sodium Chloride 1,000 ml @ 75 mls/hr [id number] IV Last administered on 02/04/19at 06:26; Start 02/02/19 at 13:00 Triamcinolone Acetonide (Kenalog 0.1%) 1 arpita BID TP Last administered on 02/04/19at 08:34; Start 02/03/19 at 21:00 Enoxaparin Sodium (Lovenox Per Pharmacy Treatment Dosing) 1 each Q12HR MC ; Start 02/03/19 at 17:15; Stop 02/03/19 at 18:10; Status DC Enoxaparin Sodium (Lovenox 100mg Syringe) 90 mg Q12HR SQ ; Start 02/03/19 at 18:00; Stop 02/03/19 at 18:10; Status DC Warfarin Sodium (Coumadin Per Pharmacy) 1 each PRN DAILY PRN MC SEE COMMENTS; Start 02/04/19 at 16:00; Stop 02/03/19 at 18:10; Status DC Active Scripts Active Tylenol (Acetaminophen) 325 Mg Tablet 650 Mg PO PRN Q6HRS PRN Reported Midodrine Hcl 10 Mg Tablet 10 Mg PO TID Ranitidine Hcl 75 Mg Tablet 75 Mg PO PRN PRN Trazodone Hcl 50 Mg Tablet 50 Mg PO HS Allergies Allergies: Coded Allergies: Sulfa (Sulfonamide Antibiotics) (Verified Allergy, Severe, 06/06/17) Penicillins (Verified Allergy, Intermediate, Rash, 06/06/17) codeine (Verified Adverse Reaction, Intermediate, Nausea and Vomiting, 06/06/17) procaine (Verified Adverse Reaction, Mild, Nausea and Vomiting, 06/11/17) Vitals VITALS Vital Signs Date Time Temp Pulse Resp B/P (MAP) Pulse Ox O2 Delivery O2 Flow Rate FiO2 02/04/19 08:34 104 113/68 02/04/19 07:00 98.2 20 100 Room Air 98.2 Labs Labs Laboratory Tests Test 02/02/19 13:10 02/03/19 04:05 02/04/19 04:05 Urine Collection Type Unknown Urine Color Yellow Urine Clarity Clear Urine pH 5.0 Urine Specific [place] 1.020 Urine Protein Negative mg/dL (NEG-TRACE) Urine Glucose (UA) 500 mg/dL (NEG) Urine Ketones (Stick) Negative mg/dL (NEG) Urine Blood Small (NEG) Urine Nitrite Negative (NEG) Urine Bilirubin Negative (NEG) Urine Urobilinogen Dipstick 1.0 mg/dL (0.2 mg/dL) Urine Leukocyte Esterase Negative (NEG) Urine RBC 0 /HPF (0-2) Urine WBC 1-4 /HPF (0-4) Urine Squamous Epithelial Cells Few /LPF Urine Bacteria 0 /HPF (0-FEW) Urine Hyaline Casts Moderate /HPF Urine Mucus Slight /LPF White Blood Count 6.1 x10^3/uL (4.0-11.0) Red Blood Count 3.16 x10^6/uL (4.30-5.70) Hemoglobin 11.4 g/dL (13.0-17.5) Hematocrit 32.9 % (39.0-53.0) Mean Corpuscular Volume 104 fL (79-100) Mean Corpuscular Hemoglobin 36 pg (25-35) Mean Corpuscular Hemoglobin Concent 35 g/dL (31-37) Red Cell Distribution Width 14.9 % (11.5-14.5) Platelet Count 94 x10^3/uL (140-400) Sodium Level 132 mmol/L (136-145) 136 mmol/L (136-145) Potassium Level 4.6 mmol/L (3.5-5.1) 4.9 mmol/L (3.5-5.1) Chloride Level 98 mmol/L (98-107) 100 mmol/L (98-107) Carbon Dioxide Level 21 mmol/L (21-32) 25 mmol/L (21-32) Anion Gap 13 (6-14) 11 (6-14) Blood Urea Nitrogen 62 mg/dL (8-26) 54 mg/dL (8-26) Creatinine 2.3 mg/dL (0.7-1.3) 2.0 mg/dL (0.7-1.3) Estimated GFR (Cockcroft-Gault) 27.7 32.6 Glucose Level 148 mg/dL (70-99) 127 mg/dL (70-99) Calcium Level 8.9 mg/dL (8.5-10.1) 9.1 mg/dL (8.5-10.1) Prothrombin Time 13.7 SEC (11.7-14.0) Prothromb Time International Ratio 1.1 (0.8-1.1) Laboratory Tests Test 02/04/19 04:05 Prothrombin Time 13.7 SEC (11.7-14.0) Prothromb Time International Ratio 1.1 (0.8-1.1) Sodium Level 136 mmol/L (136-145) Potassium Level 4.9 mmol/L (3.5-5.1) Chloride Level 100 mmol/L (98-107) Carbon Dioxide Level 25 mmol/L (21-32) Anion Gap 11 (6-14) Blood Urea Nitrogen 54 mg/dL (8-26) Creatinine 2.0 mg/dL (0.7-1.3) Estimated GFR (Cockcroft-Gault) 32.6 Glucose Level 127 mg/dL (70-99) Calcium Level 9.1 mg/dL (8.5-10.1) BERT RAM MD Feb 04, 2019 09:49
--- NOTE | 2019-02-04 10:05 | CONS ---
DATE OF CONSULTATION: PULMONARY CONSULTATION ATTENDING PHYSICIAN: Dr. De La Torre. REASON FOR CONSULTATION: DVT, history of PE. HISTORY OF PRESENT ILLNESS: The patient is a 78-year-old male who is very well known to me from his previous hospitalization. The patient had history of acute pulmonary embolism back in 05/2017. At that time, the patient was placed on Eliquis. He developed severe epistaxis. Eliquis dose was withheld and then reduced later to 5 mg b.i.d. low dose. Even on that dose, the patient developed recurrent epistaxis and also had thigh hematoma. As a result, IVC filter was placed due to his DVT. Anticoagulation was discontinued. The patient was back in the hospital with recent 2 admissions. Initially was for orthostatic hypotension. Upon subsequent discharge, he was readmitted with hip pain. He has lower extremity edema. He has an occasional shortness of breath. No chest pain and no syncope. No headaches, no nausea, vomiting or diarrhea. The patient underwent imaging study and had a V/Q scan, which showed no evidence of any thromboembolic disease. His venous Dopplers of the lower extremities showed bilateral DVT. I was asked to consider anticoagulation versus further recommendation. PAST MEDICAL HISTORY: Significant for history of deep vein thrombosis and pulmonary embolism in 2016, developed severe epistaxis and thigh hematoma even on a smaller dose of Eliquis. Status post IVC filter, off of anticoagulation since 2 years. ALLERGIES: PENICILLIN, SULFA, CODEINE, AND PROCAINE. PAST SURGICAL HISTORY: IVC filter. FAMILY HISTORY: Coronary artery disease. His father had pulmonary embolism at an old age. SOCIAL HISTORY: Does not smoke cigarettes or drink alcohol. MEDICATIONS: All reviewed as listed in the MRAD. REVIEW OF SYSTEMS: Twelve-point system obtained. Pertinent positives discussed in my history of present illness, otherwise noncontributory. All systems that were negative were reviewed as well. PHYSICAL EXAMINATION: VITAL SIGNS: Stable. NECK: Supple. LUNGS: Clear. CARDIOVASCULAR: Regular rate. ABDOMEN: Soft. EXTREMITIES: Bilateral pitting edema. LABORATORY DATA: Reviewed. White cell count 6.1, hemoglobin 11.4, and platelets are 94. IMPRESSION: 1. Chronic deep vein thrombosis in a patient who has prior history of pulmonary embolism and deep vein thrombosis. He develops severe epistaxis even on a smaller dose of Eliquis at 5 mg b.i.d. He also developed right thigh hematoma. As a result, inferior vena cava filter was placed and no further anticoagulation was given to the patient. He has done well since then. Recent V/Q scan continues to show no evidence of any recurrent thromboembolic disease. His filter is effective. At this time, I would recommend to not initiate anticoagulation. 2. No significant history of tobacco use. RECOMMENDATIONS: 1. From a pulmonary standpoint, I do not see a need for initiation of anticoagulation. 2. Monitor lower extremity edema. 3. Continue pain control for his hip pain. 4. From a pulmonary standpoint, he could be discharged home. DEBRA GRAJEDA MD DR: TERESA/amy JOB#: [id number] / [id number]
--- NOTE | 2019-02-04 10:20 | PDOC ---
SUBJECTIVE ROS Stable , no complaints or concerns, awaiting dc to Rehab OBJECTIVE Vital Signs Vital Signs Date Time Temp Pulse Resp B/P (MAP) Pulse Ox O2 Delivery O2 Flow Rate FiO2 02/04/19 08:34 104 113/68 02/04/19 08:00 Room Air 02/04/19 07:00 98.2 20 100 98.2 I & 0 Intake and Output 02/04/19 06:59 Intake Total 600 ml Balance 600 ml Intake Oral 600 ml # Voids 3 PHYSICAL EXAM Physical Exam Gen.: no acute distress HEENT: mucous membranes moist Neck: Supple, Lungs: CTA Abdomen: Soft, nontender, Extremities: BLE edema Skin: erythema BLE Neuro: Alert and oriented �3 DIAGNOSIS/ASSESSMENT Assessment & Plan JINA -Cr peaked at 3 Improving renal function down to 2.0 this am E-lytes stable , avoid NSAID's and nephrotoxins CKD stage 3 baseline Cr 1.5-2.0 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 HX of Orthostasis On Midodrine Hip Bursitis Recommend routine follow up with our office for CKD Discussed with Pt and RN Renal US- Moderate renal cortical atrophy. No hydronephrosis. 2 cm simple cyst of the right renal midpole incompletely visualized due to bowel gas shadowing limiting visualization of a portion of the cyst. This is classified Bosniak 2F. Consider six-month follow-up to document stability. COMMENT/RELEVANT DATA Meds Current Medications Medications (Trade) Dose Ordered Sig/Bisi Start Time Stop Time Status Last Admin Dose Admin Acetaminophen (Tylenol) 1,000 mg PRN Q6HRS PRN 02/01/19 12:30 02/03/19 20:06 1,000 MG Dexamethasone (Decadron) 10 mg 1X ONCE 01/30/19 21:30 01/30/19 21:31 DC 01/30/19 21:23 10 MG Docusate Sodium (Colace) 100 mg PRN BID PRN 02/04/19 09:45 Enoxaparin Sodium (Lovenox 100mg Syringe) 90 mg Q12HR 02/03/19 18:00 02/03/19 18:10 DC Enoxaparin Sodium (Lovenox Per Pharmacy Treatment Dosing) 1 each Q12HR 02/03/19 17:15 02/03/19 18:10 DC Famotidine (Pepcid) 20 mg PRN DAILY PRN 01/31/19 09:00 Midodrine (Proamatine) 10 mg TIDWMEALS 01/31/19 12:00 02/04/19 08:34 10 MG Ondansetron HCl (Zofran) 4 mg PRN Q8HRS PRN 01/30/19 23:00 01/31/19 22:59 DC 01/31/19 02:37 4 MG Orphenadrine Citrate (Norflex) 60 mg 1X ONCE 01/30/19 21:30 01/30/19 21:31 DC 01/30/19 21:23 60 MG Oxycodone/ Acetaminophen (Percocet 5/325) 1 tab PRN Q4HRS PRN 01/31/19 01:00 Polyethylene Glycol (miraLAX PACKET) 17 gm PRN DAILY PRN 02/04/19 09:45 Sodium Chloride 1,000 ml @ 75 mls/hr [id number] 02/02/19 13:00 02/04/19 06:26 75 MLS/HR Thiamine Mononitrate (Vitamin B-1) 100 mg DAILY 01/31/19 15:00 02/04/19 08:34 100 MG Trazodone HCl (Desyrel) 50 mg 1X ONCE 01/31/19 01:30 01/31/19 01:31 DC 01/31/19 01:30 50 MG Triamcinolone Acetonide (Kenalog 0.1%) 1 arpita BID 02/03/19 21:00 02/04/19 08:34 1 ARIPTA Warfarin Sodium (Coumadin Per Pharmacy) 1 each PRN DAILY PRN 02/04/19 16:00 02/03/19 18:10 DC Lab Laboratory Tests Test 02/04/19 04:05 Prothrombin Time 13.7 SEC (11.7-14.0) Prothromb Time International Ratio 1.1 (0.8-1.1) Sodium Level 136 mmol/L (136-145) Potassium Level 4.9 mmol/L (3.5-5.1) Chloride Level 100 mmol/L (98-107) Carbon Dioxide Level 25 mmol/L (21-32) Anion Gap 11 (6-14) Blood Urea Nitrogen 54 mg/dL (8-26) Creatinine 2.0 mg/dL (0.7-1.3) Estimated GFR (Cockcroft-Gault) 32.6 Glucose Level 127 mg/dL (70-99) Calcium Level 9.1 mg/dL (8.5-10.1) Results All relevant outside records, renal labs, imaging studies, telemetry/EKG's were reviewed. JAROCHO RIOS MD Feb 04, 2019 10:20
--- NOTE | 2019-02-04 10:27 | PDOC ---
[employer] PROGRESS NOTE Chief Complaint Chief Complaint Orthostatic hypotension [id number] renal insufficiency Hip pain Prior hx of PE Vasectomy History of Present Illness History of Present Illness 02/04/19 Pt seen and examined Pt eating breakfast and talking comfortably without any acute distress Pt points to red rash on right upper calf he noticed yesterday but denies any pain or itch associated 02/03/19 Pt seen and examined Pt awake and alert and talking comfortably without any acute distress After we left, he had a near syncope with SOA VIELKA RN and case mgmt several times today Ordered LE dopplars and VQ 02/02/19 Pt seen and examined (in no acute distress; BP stable) Cr trending down (2.6 today compared to 3.0 yesterday) Chart reviewed VIELKA HORN 02/01/19 Pt seen and examined (well-appearing and in no acute distress; BP remains stable) Chart reviewed VIELKA HORN Vitals/I&O Vitals/I&O: Vital Signs Date Time Temp Pulse Resp B/P (MAP) Pulse Ox O2 Delivery O2 Flow Rate FiO2 02/04/19 08:34 104 113/68 02/04/19 08:00 Room Air 02/04/19 07:00 98.2 20 100 98.2 I & O 02/03/19 02/03/19 02/04/19 15:00 23:00 07:00 Intake Total 250 ml 350 ml Balance 250 ml 350 ml Physical Exam General: Alert, Oriented X3, Cooperative, No acute distress Heart: Regular rate, Normal S1, Normal S2 Lungs: Clear Abdomen: Normal bowel sounds, No tenderness Extremities: No clubbing, No cyanosis Skin: No breakdown Labs Labs: Laboratory Tests Test 02/04/19 04:05 Prothrombin Time 13.7 SEC (11.7-14.0) Prothromb Time International Ratio 1.1 (0.8-1.1) Sodium Level 136 mmol/L (136-145) Potassium Level 4.9 mmol/L (3.5-5.1) Chloride Level 100 mmol/L (98-107) Carbon Dioxide Level 25 mmol/L (21-32) Anion Gap 11 (6-14) Blood Urea Nitrogen 54 mg/dL (8-26) Creatinine 2.0 mg/dL (0.7-1.3) Estimated GFR (Cockcroft-Gault) 32.6 Glucose Level 127 mg/dL (70-99) Calcium Level 9.1 mg/dL (8.5-10.1) Review of Systems Review of Systems: Pt denies headache Pt denies change of vision Pt denies difficulty swallowing Assessment and Plan Assessmemt and Plan Problems Medical Problems: (1) Acute on chronic renal insufficiency Status: Acute (2) JINA (acute kidney injury) Status: Acute (3) Arthritis Status: Acute (4) Back pain Status: Acute (5) Bursitis Status: Acute (6) CKD (chronic kidney disease), stage III Status: Chronic (7) Degenerative disk disease Status: Chronic (8) Degenerative joint disease Status: Chronic (9) Diabetes mellitus Status: Chronic (10) Generalized weakness Status: Acute (11) Hip pain Status: Acute (12) IT band syndrome Status: Acute (13) Orthostasis Status: Acute (14) Orthostatic hypotension Status: Acute (15) Unable to ambulate Status: Acute Assessment: Bilat DVTs Orthostatic hypotension [id number] renal insufficiency Hip pain Prior hx of PE Vasectomy Abrasion on right upper calf Plan: Add lovenox 1mg/kg q 12 hours Coumadin per Phar Consult Pulm IV fluids (1/2 NS 75 cc/hr) Trend Cr Continue Midodrine 10 mg Await final nephrology input (Dr. Anand) PT/OT Home meds Discharge planning in progress to SNU Comment Review of Relevant I have reviewed the following items chelsea (where applicable) has been applied. Medications: Current Medications Medications (Trade) Dose Ordered Sig/Bisi Route PRN Reason Start Time Stop Time Status Last Admin Dose Admin Triamcinolone Acetonide (Kenalog 0.1%) 1 arpita BID TP 02/03/19 21:00 02/04/19 08:34 SHANDA COULTER III DO Feb 04, 2019 10:27
[2019-02-04 11:00] VITALS: BP 130/71
--- NOTE | 2019-02-04 11:19 | DS ---
DATE OF DISCHARGE: 02/04/2019 ADMISSION DIAGNOSES: Weakness and orthostasis. DISCHARGE DIAGNOSES: Resolving orthostasis, debility, new diagnosis of bilateral deep vein thromboses (we did not use anticoagulation because he tends to bleed and he already has an inferior vena cava filter). CONSULTS: Moses Victoria MD, Rhonda Ram MD, Noa Medrano MD PROCEDURES: None. HOSPITAL COURSE: The patient is a pleasant elderly male who basically presented with weakness and orthostasis. He also had some hip pain. We admitted the patient and did some physical therapy and occupational therapy. We got his blood pressure up. I increased his ProAmatine to 10 b.i.d. We already discharged him yesterday, but then he had a little bit of shortness of breath and thus a near syncopal episode. We were concerned he could have had a PE. We did a V/Q scan and it is actually negative, but he has lower extremity Dopplers that are positive for DVTs in both legs. I then consulted Dr. Davis and we also consulted Dr. Rhonda Ram. Overall, the patient looks great. This morning I saw him. His heart tones are normal. Lungs are clear. Extremities are little swollen, but he wants to go. I talked to Dr. Davis. He feels the patient probably would not benefit from Lovenox because he tends to bleed. I certainly agree and appreciate his input. We plan to discharge to long-term. DISPOSITION: Skilled. ACTIVITY: As tolerated. DIET: Low sodium. MEDICATIONS: Please see MRAD. TOTAL TIME: 38 minutes. SHANDA COULTER DO DR: LUDWIG/amy JOB#: [id number] / [id number]
--- NOTE | 2019-02-04 11:59 | PDOC ---
PROGRESS NOTES Assessment Problems Medical Problems: (1) Acute on chronic renal insufficiency Status: Acute (2) JINA (acute kidney injury) Status: Acute (3) Arthritis Status: Acute (4) Back pain Status: Acute (5) Bursitis Status: Acute (6) CKD (chronic kidney disease), stage III Status: Chronic (7) Degenerative disk disease Status: Chronic (8) Degenerative joint disease Status: Chronic (9) Diabetes mellitus Status: Chronic (10) Generalized weakness Status: Acute (11) Hip pain Status: Acute (12) IT band syndrome Status: Acute (13) Orthostasis Status: Acute (14) Orthostatic hypotension Status: Acute (15) Unable to ambulate Status: Acute Lower extremity weakness and numbness, actually has good strength and sensation exam, he has degenerative lumbar-spine disease, not surgical, arthritic pain, hypotension, history of cervical fracture, also history of alcohol abuse. Plan Vit B1 100 mg daily. Treat medical and orthopedic diseases. Rehabilitation modalities Patient education for alcohol abstinence. SNU Subjective No complaints Objective Vital Signs Date Time Temp Pulse Resp B/P (MAP) Pulse Ox O2 Delivery O2 Flow Rate FiO2 02/04/19 11:00 98.6 93 20 130/71 (90) 100 Room Air 98.6 Intake and Output 02/04/19 06:59 Intake Total 600 ml Balance 600 ml Intake Oral 600 ml # Voids 3 PHYSICAL EXAM Alert. Oriented to time, place and person. PERRL. EOMI. CN: no focal findings. Muscle tone: normal. Muscle strength: 5/5 DTR: 1+ Plantar reflex: flexor Gait: not examined Sensory exam: no abnormal findings. No cerebellar signs elicited. Review of Relevant I have reviewed the following items chelsea (where applicable) has been applied. Labs Laboratory Tests Test 02/02/19 13:10 02/03/19 04:05 02/04/19 04:05 Urine Collection Type Unknown Urine Color Yellow Urine Clarity Clear Urine pH 5.0 Urine Specific [place] 1.020 Urine Protein Negative mg/dL (NEG-TRACE) Urine Glucose (UA) 500 mg/dL (NEG) Urine Ketones (Stick) Negative mg/dL (NEG) Urine Blood Small (NEG) Urine Nitrite Negative (NEG) Urine Bilirubin Negative (NEG) Urine Urobilinogen Dipstick 1.0 mg/dL (0.2 mg/dL) Urine Leukocyte Esterase Negative (NEG) Urine RBC 0 /HPF (0-2) Urine WBC 1-4 /HPF (0-4) Urine Squamous Epithelial Cells Few /LPF Urine Bacteria 0 /HPF (0-FEW) Urine Hyaline Casts Moderate /HPF Urine Mucus Slight /LPF White Blood Count 6.1 x10^3/uL (4.0-11.0) Red Blood Count 3.16 x10^6/uL (4.30-5.70) Hemoglobin 11.4 g/dL (13.0-17.5) Hematocrit 32.9 % (39.0-53.0) Mean Corpuscular Volume 104 fL (79-100) Mean Corpuscular Hemoglobin 36 pg (25-35) Mean Corpuscular Hemoglobin Concent 35 g/dL (31-37) Red Cell Distribution Width 14.9 % (11.5-14.5) Platelet Count 94 x10^3/uL (140-400) Sodium Level 132 mmol/L (136-145) 136 mmol/L (136-145) Potassium Level 4.6 mmol/L (3.5-5.1) 4.9 mmol/L (3.5-5.1) Chloride Level 98 mmol/L (98-107) 100 mmol/L (98-107) Carbon Dioxide Level 21 mmol/L (21-32) 25 mmol/L (21-32) Anion Gap 13 (6-14) 11 (6-14) Blood Urea Nitrogen 62 mg/dL (8-26) 54 mg/dL (8-26) Creatinine 2.3 mg/dL (0.7-1.3) 2.0 mg/dL (0.7-1.3) Estimated GFR (Cockcroft-Gault) 27.7 32.6 Glucose Level 148 mg/dL (70-99) 127 mg/dL (70-99) Calcium Level 8.9 mg/dL (8.5-10.1) 9.1 mg/dL (8.5-10.1) Prothrombin Time 13.7 SEC (11.7-14.0) Prothromb Time International Ratio 1.1 (0.8-1.1) Laboratory Tests Test 02/04/19 04:05 Prothrombin Time 13.7 SEC (11.7-14.0) Prothromb Time International Ratio 1.1 (0.8-1.1) Sodium Level 136 mmol/L (136-145) Potassium Level 4.9 mmol/L (3.5-5.1) Chloride Level 100 mmol/L (98-107) Carbon Dioxide Level 25 mmol/L (21-32) Anion Gap 11 (6-14) Blood Urea Nitrogen 54 mg/dL (8-26) Creatinine 2.0 mg/dL (0.7-1.3) Estimated GFR (Cockcroft-Gault) 32.6 Glucose Level 127 mg/dL (70-99) Calcium Level 9.1 mg/dL (8.5-10.1) Medications Current Medications Orphenadrine Citrate (Norflex) 60 mg 1X ONCE IM Last administered on 01/30/19at 21:23; Start 01/30/19 at 21:30; Stop 01/30/19 at 21:31; Status DC Dexamethasone (Decadron) 10 mg 1X ONCE PO Last administered on 01/30/19at 21:23; Start 01/30/19 at 21:30; Stop 01/30/19 at 21:31; Status DC Ondansetron HCl (Zofran) 4 mg PRN Q8HRS PRN IV NAUSEA/VOMITING 1ST CHOICE Last administered on 01/31/19at 02:37; Start 01/30/19 at 23:00; Stop 01/31/19 at 22:59; Status DC Sodium Chloride 1,000 ml @ 100 mls/hr 1X ONCE IV Last administered on 01/31/19at 01:17; Start 01/31/19 at 00:15; Stop 01/31/19 at 10:14; Status DC Oxycodone/ Acetaminophen (Percocet 5/325) 1 tab PRN Q4HRS PRN PO MODERATE - SEVERE PAIN; Start 01/31/19 at 01:00 Acetaminophen (Tylenol) 650 mg PRN Q6HRS PRN PO MILD PAIN / TEMP Last administered on 01/31/19at 01:30; Start 01/31/19 at 01:15; Stop 01/31/19 at 10:13; Status DC Midodrine (Proamatine) 5 mg TIDWMEALS PO Last administered on 01/31/19at 10:13; Start 01/31/19 at 08:00; Stop 01/31/19 at 10:13; Status DC Trazodone HCl (Desyrel) 50 mg HS PO Last administered on 02/03/19at 22:19; Start 01/31/19 at 21:00 Famotidine (Pepcid) 20 mg PRN DAILY PRN PO HEARTBURN / GAS; Start 01/31/19 at 09:00 Trazodone HCl (Desyrel) 50 mg 1X ONCE PO Last administered on 01/31/19at 01:30; Start 01/31/19 at 01:30; Stop 01/31/19 at 01:31; Status DC Midodrine (Proamatine) 10 mg TIDWMEALS PO Last administered on 02/04/19 08:34; Start 01/31/19 at 12:00 Acetaminophen (Tylenol) 500 mg PRN Q6HRS PRN PO MILD PAIN / TEMP Last administered on 02/01/19at 10:03; Start 01/31/19 at 10:00; Stop 02/01/19 at 12:19; Status DC Sodium Chloride 1,000 ml @ 100 mls/hr Q10H IV Last administered on 02/01/19at 01:22; Start 01/31/19 at 13:30; Stop 02/01/19 at 11:00; Status DC Thiamine Mononitrate (Vitamin B-1) 100 mg DAILY PO Last administered on 02/04/19 08:34; Start 01/31/19 at 15:00 Acetaminophen (Tylenol) 1,000 mg PRN Q6HRS PRN PO MILD PAIN 1-3 Last administered on 02/03/19at 20:06; Start 02/01/19 at 12:30 Sodium Chloride 1,000 ml @ 75 mls/hr [id number] IV Last administered on 02/04/19at 06:26; Start 02/02/19 at 13:00 Triamcinolone Acetonide (Kenalog 0.1%) 1 arpita BID TP Last administered on 02/04/19at 08:34; Start 02/03/19 at 21:00 Enoxaparin Sodium (Lovenox Per Pharmacy Treatment Dosing) 1 each Q12HR MC ; Start 02/03/19 at 17:15; Stop 02/03/19 at 18:10; Status DC Enoxaparin Sodium (Lovenox 100mg Syringe) 90 mg Q12HR SQ ; Start 02/03/19 at 18:00; Stop 02/03/19 at 18:10; Status DC Warfarin Sodium (Coumadin Per Pharmacy) 1 each PRN DAILY PRN MC SEE COMMENTS; Start 02/04/19 at 16:00; Stop 02/03/19 at 18:10; Status DC Docusate Sodium (Colace) 100 mg PRN BID PRN PO CONSTIPATION; Start 02/04/19 at 09:45 Polyethylene Glycol (miraLAX PACKET) 17 gm PRN DAILY PRN PO CONSTIPATION; Start 02/04/19 at 09:45 Active Scripts Active Tylenol (Acetaminophen) 325 Mg Tablet 650 Mg PO PRN Q6HRS PRN Reported Midodrine Hcl 10 Mg Tablet 10 Mg PO TID Ranitidine Hcl 75 Mg Tablet 75 Mg PO PRN PRN Trazodone Hcl 50 Mg Tablet 50 Mg PO HS Vitals/I & O Vital Sign - Last 24 Hours 02/03/19 02/03/19 02/03/19 02/03/19 12:35 15:00 16:43 19:51 Temp 97.8 97.8 97.8 97.8 Pulse 101 88 101 95 Resp 18 20 B/P (MAP) 142/69 149/69 (95) 142/69 135/86 (102) Pulse Ox 99 100 O2 Delivery Room Air Room Air 02/03/19 02/03/19 02/04/19 02/04/19 20:00 23:15 03:25 07:00 Temp 98.7 98.8 98.2 98.7 98.8 98.2 Pulse 100 106 104 Resp 20 B/P (MAP) 132/72 (92) 112/73 (86) 113/68 (83) Pulse Ox 99 100 100 O2 Delivery Room Air Room Air Room Air Room Air 02/04/19 02/04/19 02/04/19 08:00 08:34 11:00 Temp 98.6 98.6 Pulse 104 93 Resp 20 B/P (MAP) 113/68 130/71 (90) Pulse Ox 100 O2 Delivery Room Air Room Air Intake and Output 02/03/19 02/03/19 02/04/19 14:59 22:59 06:59 Intake Total 250 ml 350 ml Balance 250 ml 350 ml DAMIAN WOODARD MD Feb 04, 2019 11:59
[2019-02-04] MEDS ORDERED: TRIA15CR TP (13:56)
[2019-02-04 15:00] VITALS: BP 142/65
--- NOTE | 2019-02-04 15:16 | NUR ---
SW following pt. Insurance approved SNU and pt will transport via facility arranged w/c van between [id number]. Pt's notified and agreeable with plans. Packet on chart.
--- NOTE | 2019-02-04 15:41 | NUR ---
3 small intact blisters occurred on top of pt's left foot after shower this afternoon also increased swelling to destiny legs after being up to shower. legs elevated,and pt requested to have this seen by Dr prior to discharge. Dr De La Torre notified and stated a Dr will [facility],and that he will also notify nurse practioner at [facility] to evaluate tomorrow am. Pt's notified,and verbalized understanding.
[2019-02-04 16:40] VITALS: BP 142/65
--- NOTE | 2019-02-04 17:00 | NUR ---
Report called to receiving nurse Alva at [facility]. Pt dismissed to [facility] with all belongings @ [id number].Transfer orders given to jitney driver.
== END 2019-02-04 16:57 | DRG 300 ==
LOC: ER 20:02 → 6 SOUTH 23:00
PROVIDERS: ADMIT Internal Medicine; ATTEND Internal Medicine
DX: I82.403 Acute embolism and thrombosis of unspecified deep veins of lower extremity, bilateral (principal); N17.9 Acute kidney failure, unspecified; I95.1 Orthostatic hypotension; E11.22 Type 2 diabetes mellitus with diabetic chronic kidney disease; I12.9 Hypertensive chronic kidney disease with stage 1 through stage 4 chronic kidney disease, or unspecified chronic kidney disease; K21.9 Gastro-esophageal reflux disease without esophagitis; K59.00 Constipation, unspecified; M19.90 Unspecified osteoarthritis, unspecified site; M48.061 Spinal stenosis, lumbar region without neurogenic claudication; M70.71 Other bursitis of hip, right hip; M70.72 Other bursitis of hip, left hip; N18.3 Chronic kidney disease, stage 3 (moderate); Z82.49 Family history of ischemic heart disease and other diseases of the circulatory system; Z86.711 Personal history of pulmonary embolism; Z86.718 Personal history of other venous thrombosis and embolism; Z95.828 Presence of other vascular implants and grafts; F41.9 Anxiety disorder, unspecified; Z88.5 Allergy status to narcotic agent; Z88.0 Allergy status to penicillin; Z88.2 Allergy status to sulfonamides; Z88.8 Allergy status to other drugs, medicaments and biological substances
CPT/HCPCS: 36415; 71046; 72148; 73502; 76770; 78582; 80048; 80053; 81001; 82553; 82607; 82962; 83036; 83735; 84443; 84484; 85025; 85027; 85610; 85651; 93005; 93970; 96372; 96374; A9540; A9558; J2360; J2405; J7030; J8540; 97110; 97116; 97530; 99285-25; G0378